=== PATIENT | male | born 1965 | race African-American/Black ===

== ENCOUNTER 2018-05-06 13:23 | Emergency (ER) | payer BC ==
[~2018-05-06] VITALS: Ht 180.3 cm; Wt 113.4 kg
[~2018-05-06 13:23] MED LIST: PRILOSEC
[2018-05-06] MEDS ORDERED: cloNIDine HCL 0.1 MG TAB PO ONE (13:30)
[2018-05-06] MEDS ORDERED: METHOCARBAMOL 500 MG TAB PO ONE (14:45)
[2018-05-06] MEDS ORDERED: ONDANSETRON ODT 4 MG TAB PO ONE (14:45)
[2018-05-06] MEDS ORDERED: HYDROcodone-ACET 10/325MG TAB PO ONE (14:45)
[2018-05-06 16:10] VITALS: BP 166/82
== END 2018-05-06 16:20 | disposition home or self-care (01) ==
LOC: ER 13:23
DX: N20.0 Calculus of kidney (principal); I10 Essential (primary) hypertension
CPT/HCPCS: 74176; 81002; 99284; Q0162; 93005

== ENCOUNTER 2018-05-08 07:06 | Emergency (ER) | payer BC ==
[~2018-05-08] VITALS: Ht 182.9 cm; Wt 113.4 kg
[2018-05-08] MEDS ORDERED: ONDANSETRON ODT 4 MG TAB PO ONE (07:30)
[2018-05-08] MEDS ORDERED: HYDROmorphone HCL 2 MG/ML VL IM ONE (07:30)
[2018-05-08 07:50] VITALS: BP 152/82
== END 2018-05-08 08:53 | disposition home or self-care (01) ==
LOC: EDBD 07:06 → ER 07:06
DX: G89.29 Other chronic pain (principal); M54.9 Dorsalgia, unspecified; I10 Essential (primary) hypertension
CPT/HCPCS: 72110; 96372; 99284; J1170; Q0162

== ENCOUNTER 2020-10-25 20:11 | Emergency (ER) | payer BC ==
[~2020-10-25] VITALS: Ht 180.3 cm; Wt 108.9 kg
[2020-10-25 20:38] VITALS: BP 180/90
== END 2020-10-26 00:30 | disposition home or self-care (01) ==
LOC: ER 20:16
DX: R04.0 Epistaxis (principal); I10 Essential (primary) hypertension

== ENCOUNTER 2024-10-23 13:40 | Inpatient (IN) | payer BC ==
[~2024-10-23] VITALS: Ht 180.3 cm; Wt 121.4 kg
[2024-10-23 13:55] VITALS: PULSE 36; RESP 17; O2SAT 98
[2024-10-23] MEDS: ASPirin 81 mg TAB PO ONE (14:07)
--- NOTE | 2024-10-23 14:20 | DVH ---
EXAM: XY CHEST PORTABLE Indication: bradycardic Technique: Single frontal view of the chest was obtained Comparison: None FINDINGS: Lines and Tubes: None Lungs: No focal consolidation. Pleura: No effusion. No pneumothorax. Cardiomediastinal contours: Cardiomegaly. Bones: No acute osseous abnormality. IMPRESSION: Cardiomegaly. No acute cardiopulmonary disease.
[2024-10-23 14:22] LABS: Basophils # (auto) 0.1 10 ^3/uL (0-0.2); Basophils % (auto) 1.3 % (0.0-2.0); Eosinophils # (auto) 0 10 ^3/uL (0-0.8); Eosinophils % (auto) 1.2 % (0.0-7.0); Hematocrit 48.4 % (41.0-53.0); Lymphocytes % (auto) 51.2 % (10.0-50.0); Mean Corpuscular Hemoglobin 30.8 pg (28.0-32.0); Mean Corpuscular Hgb Conc. 33.1 g/dL (32.0-36.0); Mean Corpuscular Volume 92.9 fL (80.0-100.0); Monocytes # (auto) 0.3 10 ^3/uL (0-1.3); Monocytes % (auto) 8.5 % (0.0-12.0); Neutrophils # (auto) 1.5 10 ^3/uL (1.6-8.6); Neutrophils % (auto) 37.8 % (37.0-80.0); Nucleated Red Blood Cells % 0.3 %; Platelet Count (auto) 189 10^3/uL (140-450); Red Blood Cells 5.21 10^6/uL (4.5-5.90); Red Cell Distribution Width 13.3 % (11.8-14.3); White Blood Cell 3.9 10^3/uL (4.4-10.8)
[2024-10-23] MEDS: GLUCAGON EMERG KIT 1mg/1ml IV ONE (14:22)
[2024-10-23] MEDS: STERILE WATER 10 ML ONE (14:23)
[2024-10-23 14:37] LABS: Albumin 4.6 g/dL (3.2-4.8); Alkaline Phosphatase 75 U/L (46-116); Anion Gap 8 (5-15); Aspartate Aminotransferase 30 U/L (13-40); BUN/Creatinine Ratio 9.1 (10.0-20.0); Blood Urea Nitrogen 11 mg/dL (9-23); Calcium 9.8 mg/dL (8.7-10.4); Carbon Dioxide 28 mmol/L (20-31); Chloride 105 mmol/L (98-107); Potassium 4.3 mmol/L (3.5-5.1); Sodium 141 mmol/L (136-145)
[2024-10-23 14:38] LABS: Total Protein 6.7 g/dL (5.7-8.2)
--- NOTE | 2024-10-23 14:57 | ED.PDOC ---
History of Present Illness HPI Comments 59 y/o M, with a Hx of HTN and obesity, presents with c/o bradycardia, today. Patient endorses on being sent from [facility] urgent care after being found with asymptomatic bradycardia when he was, initially, being evaluated for a productive cough that has been ongoing for, approximately, 1x week. He comments on only recent changes in his life being an increase in dosage of his metoprolol medication from a half of a 50mg table to a full 50mg tablet under advice of his senior developer. Patient denies having any chest pain, shortness of breath, fever, chills, or other associated symptoms or modifiers at this time. Chief Complaint: Flu like Time Seen by MD: 13:45 Primary Care Provider: NONE Reviewed Notes: Nurses Notes, Medications, Allergies Allergies: Coded Allergies: NO KNOWN ALLERGIES (Unverified , 04/02/10) Home Meds Reported Medications [Prilosec] No Conflict Check 04/02/10 Information Source: Patient Mode of Arrival: EMS Severity: Moderate Timing: Hours Duration: Since onset Prehospital treatment: None Past Medical History PAST MEDICAL HISTORY: HTN Past Medical History (Other): obesity Surgical History: Denies all surgeries Social History Smoker: Non-Smoker Alcohol: Denies ETOH Use Drugs: Denies Drug Use Lives In: Home Cardiovascular: reports: others (bradycardia ) All Other Systems: Reviewed and Negative (negative unless otherwise stated above or in HPI) Physical Exam General Appearance: No Apparent Distress, Obese HEENT: Normal ENT Inspection, Pharynx Normal, TMs Normal Neck: Full Range of Motion, Non-Tender, Normal, Normal Inspection Respiratory: Chest Non-Tender, Lungs Clear, No Accessory Muscle Use, No Respiratory Distress, Normal Breath Sounds Cardiovascular: Bradycardia, No Edema, No JVD, No Murmur, No Gallop, Normal Peripheral Pulses, Regular Rate/Rhythm Breast Exam: Deferred Gastrointestinal: No Organomegaly, Non Tender, No Pulsatile Mass, Normal Bowel Sounds, Soft Genitalia: Deferred Pelvic: Deferred Rectal: Deferred Extremities: No calf tenderness, Normal capillary refill, Normal inspection, Normal range of motion, Non-tender, No pedal edema Musculoskeletal : Apperance: Normal Neurologic: Alert, solid die cutter II-XII nml as Tested, No Motor Deficits, Normal Affect, Normal Mood, No Sensory Deficits Cerebellar Function: Normal Reflexes: Normal Skin: Dry, Normal Color, Warm Lymphatic: No Adenopathy Was a procedure done? Was a procedure done?: No EKG EKG : Pulse Rate (adult): 36 Fraser: RAD Cardiac Rhythm: Junctional Block: None Hypertrophy: None ST: Normal Comments Q-waves in septal lead, inverted T-waves in lateral leads Differential Dx Considerations may include: bradycardia, arrhythmia, viral syndrome, inappropriate medication dosage, HEART BLOCK X-Ray, Labs, Meds, VS Vital Signs Date Time Temp Pulse Resp B/P (MAP) Pulse Ox O2 Delivery O2 Flow Rate FiO2 10/23/24 14:57 36 10/23/24 13:55 98.1 36 17 174/89 (117) 98 98.1 10/23/24 13:55 36 17 98 Room Air* 0 21 10/23/24 13:51 38 10/23/24 13:51 98.1 36 18 138/96 (110) 98 10/23/24 13:41 36 Lab Test 10/23/24 14:12 Range/Units White Blood Count 3.9 L 4.4-10.8 10^3/uL Red Blood Count 5.21 4.5-5.90 10^6/uL Hemoglobin 16.0 13.5-17.5 g/dL Hematocrit 48.4 41.0-53.0 % Mean Corpuscular Volume 92.9 80.0-100.0 fL Mean Corpuscular Hemoglobin 30.8 28.0-32.0 pg Mean Corpuscular Hemoglobin Concent 33.1 32.0-36.0 g/dL Red Cell Distribution Width 13.3 11.8-14.3 % Platelet Count 189 140-450 10^3/uL Mean Platelet Volume 8.8 6.9-10.8 fL Neutrophils (%) (Auto) 37.8 37.0-80.0 % Lymphocytes (%) (Auto) 51.2 H 10.0-50.0 % Monocytes (%) (Auto) 8.5 0.0-12.0 % Eosinophils (%) (Auto) 1.2 0.0-7.0 % Basophils (%) (Auto) 1.3 0.0-2.0 % Neutrophils # (Auto) 1.5 L 1.6-8.6 10 ^3/uL Lymphocytes # (Auto) 2.0 0.4-5.4 10 ^3/uL Monocytes # (Auto) 0.3 0-1.3 10 ^3/uL Eosinophils # (Auto) 0 0-0.8 10 ^3/uL Basophils # (Auto) 0.1 0-0.2 10 ^3/uL Nucleated Red Blood Cells 0.3 % Sodium Level Pending Potassium Level Pending Chloride Level Pending Carbon Dioxide Level Pending Anion Gap Pending Blood Urea Nitrogen Pending Creatinine Pending Glomerular Filtration Rate Calc Pending BUN/Creatinine Ratio Pending Serum Glucose Pending Calcium Level Pending Total Bilirubin Pending Aspartate Amino Transferase (AST) Pending Alanine Aminotransferase (ALT) Pending Alkaline Phosphatase Pending Troponin I High Sensitivity Pending Total Protein Pending Albumin Pending Current Medications Medications (Trade) Dose Ordered Sig/Reagan Route Start Time Stop Time Status Last Admin Glucagon (Glucagen) 1 mg ONCE ONCE IV 10/23/24 14:00 10/23/24 14:01 DC 10/23/24 14:22 Aspirin 324 mg ONCE ONCE PO 10/23/24 14:00 10/23/24 14:01 DC 10/23/24 14:07 [place] [id number] Ph: [phone] DIAGNOSTIC IMAGING Diagnostic Imaging Report : [id number] Signed PATIENT: ZAID KNIGHT ACCT: [id number] UNIT: [id number] : 1965 LOC: ER ROOM / BED: / AGE / SEX: 59 / M ADM STATUS: REG ER SERVICE 1354 ORDERING PHYSICIAN: MARSHALL ORELLANA MD PROCEDURE(s): CXRP - CHEST PORTABLE REASON: bradycardic ORDER NUMBER(s): [id number], ACCESSION NUMBER(s): [id number] EXAM: XY CHEST PORTABLE Indication: bradycardic Technique: Single frontal view of the chest was obtained Comparison: None FINDINGS: Lines and Tubes: None Lungs: No focal consolidation. Pleura: No effusion. No pneumothorax. Cardiomediastinal contours: Cardiomegaly. Bones: No acute osseous abnormality. IMPRESSION: Cardiomegaly. No acute cardiopulmonary disease. ATED BY: ALEX LAGOS MD DICTATED DATE/TIME: 10/23/24 2434 SIGNED BY: ALEX LAGOS MD SIGNED DATE/TIME: 10/23/24 1419 CC: Time of 1ST Reevaluation: 14:15 Reevaluation 1ST: Unchanged Time of 2ND Reevaluation: 14:59 Reevaluation 2ND: Unchanged Patient Education/Counseling: Diagnosis, Treatment, Prognosis, Need For Follow Up Family Education/Counseling: Diagnosis, Treatment, Prognosis, Need For Follow Up, No Family Present Additional Information - I reviewed the following notes from patient's past medical encounters: ED ph ysician note on 10/25/20 - The following tests were ordered, and results were reviewed by me: EKG, troponin, CXR, CMP, CBC - Concur with result findings: CXR - I discussed treatments and results with medical personnel Pt remains asymptomatic, but he remains bradycardic, without response to glucagon. cxr shows CM, ekg shows nonspecific changes. however his troponin is significantly elevated. pt will need admission for further workup of the bradycardia, possible cardiomyopathy, with NSTEMI Departure 1 Departure Time of Disposition: 15:01 Impression: Primary Impression: Bradycardia Additional Impressions: Cardiomegaly Hypertension Qualified Codes: I10 - Essential (primary) hypertension NSTEMI (non-ST elevated myocardial infarction) Disposition: ADMITTED INPATIENT Admit to: Tele Condition: Serious Discharged With: Self, Relative Critical Care Note Critical Care Time?: Yes (55 min-critical care time only) Critical care comment: due to concerns for patient's condition deteriorating, the care required my highest level of attention and readiness to intervene. i assessed the patient's condition, ordered the proper tests and treatments, reassessed for response and reviewed the results. i communicated with medical personnel and formulated a plan of care. total critical care time does not include any procedures Stability Stability form required: No Heart Score Heart Score: Heart Score Response (Comments) Value History Moderate Suspicious 1 EKG Repolarization Disturb 1 Age 45-64 1 Risk Factors 1 or 2 risk factors 1 Troponin >3 x's Normal limit 2 Total 6 I personally scribed for MARSHALL ORELLANA MD ([email or web address]) on 10/23/24 at 14:57. Electronically submitted by Sekou Lopez ([email or web address]). MARSHALL ORELLANA MD Oct 23, 2024 14:57
[2024-10-23 15:00] LABS: Alanine Aminotransferase 42 U/L (7-40); Bilirubin, Total 1.7 mg/dL (0.2-1.0); Glucose 110 mg/dL (74-106)
[2024-10-23] MEDS: HEPARIN DRIP/D5W 100UNITS/ML 250 ML IV SCH ×2 (15:15→23:58)
[2024-10-23] MEDS: HEPARIN SODIUM (PORCINE) 5000 UNITS/ML 1ML VIAL IV ONE (15:15)
[2024-10-23 15:47] LABS: INR 1.03 (0.9-1.15); Partial Thromboplastin Time 26.8 SEC (24.5-34.5); Prothrombin Time 10.9 sec (9.3-11.8)
--- NOTE | 2024-10-23 18:41 | ECG ---
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
--- NOTE | 2024-10-23 18:41 | ECG ---
[facility] Test Date: 2024-10-23 Test Time: 13:41:40 Pat Name: ZAID KNIGHT Department: ED Room: [address] [place] [address] Gender: M Inclusion Specialist: DINORAH : 1965 Requested By: MARSHALL ORELLANA Order Number: [id number] Reading MD: Gee Wright Measurements Intervals [place] Rate: 36 P: 0 ME: 0 QRS: 100 QRSD: 86 T: 266 QT: 552 QTc: 428 Interpretive Statements Junctional rhythm Right axis deviation Anteroseptal infarct, old Abnormal T, consider ischemia, diffuse leads Electronically Signed On 10-26-2024 8:22:05 PST by Gee Wright Please click the below link to view image of tracing.
[2024-10-23 19:30] VITALS: PULSE 39; RESP 17; O2SAT 96
[2024-10-23] MEDS ORDERED: DOCUSATE SOD 100 MG CAP PO PRN (20:00)
--- NOTE | 2024-10-23 20:55 | DVHHP2 ---
History of Present Illness Reason for Visit: Bradycardia History of Present Illness The patient is a 59-year-old male morbidly obese with past medical history of hypertension presented to [facility] ED with complaint of bradycardia. Patient reports he went to urgent care stating chair, and was found to have symptomatic bradycardia, productive cough for the past 1 week, getting worse today that prompted this visit. Patient was seen and evaluated in the ED, laboratory data shows WBC 3.9, platelets 189, sodium 141, potassium 4.3, BUN 11, creatinine 1.21, GFR 68, glucose 110, total bilirubin 1.7, AST 30, ALT 47, troponin 711, blood pressure 141/75, heart rate 42, temperature 98.3 F, O2 saturation 98% on oxygen. Chest x-ray revealing cardiomegaly with no acute cardiopulmonary disease. Patient was started on heparin drip, please see medication orders section in the computer. On assessment, patient denied chest pain, no headache, no dizziness, no shortness of breaths, no nausea, no vomiting, no fever, no chills. Patient was admitted for further evaluation and medical management. Past Medical History HTN, Obesity Past Surgical History Denies all surgeries Family History Reviewed, noncontributory to the management of this case. Past Social History The patient lives at home, denies smoking, alcohol or illicit drugs abuse. Review of Systems Constitutional: No: Fever, Chills, Sweats, Weakness, Malaise, Other Eyes: No: Pain, Vision change, Conjunctivae inflammation, Eyelid inflammation, Other, Redness ENT: No: Ear pain, Ear discharge, Nose pain, Nose discharge, Nose congestion, Mouth pain, Mouth swelling, Throat pain, Throat swelling, Other Respiratory: Cough; No: Dry, Shortness of breath, SOB with excertion, Wheezing, Hemoptysis, Pleuritic Pain, Sputum, Wheezing, Other Cardiovascular: Other (Bradycardia); No: Chest Pain, Palpitations, Orthopnea, Paroxysmal Noc. Dyspnea, Edema, Lt Headedness Gastrointestinal: No: Nausea, Vomiting, Abdominal Pain, Diarrhea, Constipation, Melena, Hematochezia, Other Genitourinary: No Dysuria, No Frequency, No Incontinence, No Hematuria, No Retention, No Other Musculoskeletal: No: other, neck pain, shoulder pain, arm pain, back pain, hand pain, leg pain, foot pain Skin: No: Rash, Lesions, Jaundice, Bruising, Other Neurological: No: Weakness, Numbness, Incoordination, Change in speech, Confusion, Seizures, Other Allergies: Coded Allergies: NO KNOWN ALLERGIES (Unverified , 04/02/10) Medications Current Medications Medications Dose Ordered Sig/Reagan Route Start Time Stop Time Status Last Admin Dose Admin Heparin Sodium/ Dextrose 250 ml @ 10 mls/hr Q24H IV 10/23/24 15:15 10/23/24 15:15 10 MLS/HR Amlodipine Besylate 5 mg DAILY PO 10/24/24 10:00 Atorvastatin Calcium 10 mg HS PO 10/23/24 22:00 Famotidine 20 mg DAILY IV 10/24/24 10:00 Sodium Chloride 10 ml Q8HR IV 10/23/24 22:00 Acetaminophen/ Hydrocodone Bitart 1 tab Q4HP PRN PO 10/23/24 20:00 Ondansetron HCl 4 mg Q4HP PRN IV 10/23/24 20:00 Docusate Sodium 100 mg BIDPRN PRN PO 10/23/24 20:00 Acetaminophen 650 mg Q6HP PRN PO 10/23/24 20:00 Exam Vital Signs Vital Signs Date Time Temp Pulse Resp B/P (MAP) Pulse Ox O2 Delivery O2 Flow Rate FiO2 10/23/24 19:00 41 17 141/75 (97) 98 10/23/24 16:00 98.3 98.3 10/23/24 13:55 Room Air* 0 21 General Appearance: Alert, Oriented X3, Cooperative HEENT: Atraumatic, PERRLA, EOMI, Mucous membr. moist/pink Respiratory: Clear to auscultation, Normal air movement Cardiovascular: Normal S1, Normal S2, No murmurs, Other (Irregular rate) Abdominal: Normal bowel sounds, Soft, No tenderness, No hepatospenomegaly, No masses Extremities: No clubbing, No cyanosis, No edema, Normal pulses, No tenderness/swelling Skin: No rashes, No breakdown, No significant lesion Neuro: Normal gait, Normal speech, Strength at 5/5 X4 ext, Normal tone, Sensation intact, Cranial nerves 3-12 NL, Reflexes 2+ Psych/Mental Status: Mental status NL, Mood NL Labs/Xrays Labs Test 10/23/24 17:38 10/23/24 14:12 Range/Units Troponin I High Sensitivity 695 *H </=54 ng/L White Blood Count 3.9 L 4.4-10.8 10^3/uL Red Blood Count 5.21 4.5-5.90 10^6/uL Hemoglobin 16.0 13.5-17.5 g/dL Hematocrit 48.4 41.0-53.0 % Mean Corpuscular Volume 92.9 80.0-100.0 fL Mean Corpuscular Hemoglobin 30.8 28.0-32.0 pg Mean Corpuscular Hemoglobin Concent 33.1 32.0-36.0 g/dL Red Cell Distribution Width 13.3 11.8-14.3 % Platelet Count 189 140-450 10^3/uL Mean Platelet Volume 8.8 6.9-10.8 fL Neutrophils (%) (Auto) 37.8 37.0-80.0 % Lymphocytes (%) (Auto) 51.2 H 10.0-50.0 % Monocytes (%) (Auto) 8.5 0.0-12.0 % Eosinophils (%) (Auto) 1.2 0.0-7.0 % Basophils (%) (Auto) 1.3 0.0-2.0 % Neutrophils # (Auto) 1.5 L 1.6-8.6 10 ^3/uL Lymphocytes # (Auto) 2.0 0.4-5.4 10 ^3/uL Monocytes # (Auto) 0.3 0-1.3 10 ^3/uL Eosinophils # (Auto) 0 0-0.8 10 ^3/uL Basophils # (Auto) 0.1 0-0.2 10 ^3/uL Nucleated Red Blood Cells 0.3 % Prothrombin Time 10.9 9.3-11.8 sec Prothrombin Time INR 1.03 0.9-1.15 Activated Partial Thromboplast Time 26.8 24.5-34.5 SEC Sodium Level 141 136-145 mmol/L Potassium Level 4.3 3.5-5.1 mmol/L Chloride Level 105 98-107 mmol/L Carbon Dioxide Level 28 20-31 mmol/L Anion Gap 8 5-15 Blood Urea Nitrogen 11 9-23 mg/dL Creatinine 1.21 0.700-1.30 mg/dL Glomerular Filtration Rate Calc 68 >90 mL/min BUN/Creatinine Ratio 9.1 L 10.0-20.0 Serum Glucose 110 H 74-106 mg/dL Calcium Level 9.8 8.7-10.4 mg/dL Total Bilirubin 1.7 H 0.2-1.0 mg/dL Aspartate Amino Transferase (AST) 30 13-40 U/L Alanine Aminotransferase (ALT) 42 H 7-40 U/L Alkaline Phosphatase 75 46-116 U/L Total Protein 6.7 5.7-8.2 g/dL Albumin 4.6 3.2-4.8 g/dL PATIENT: ZAID KNIGHT ACCT: [id number] UNIT: [id number] : 1965 LOC: ER ROOM / BED: / AGE / SEX: 59 / M ADM STATUS: REG ER SERVICE 1354 ORDERING PHYSICIAN: MARSHALL ORELLANA MD PROCEDURE(s): CXRP - CHEST PORTABLE REASON: bradycardic ORDER NUMBER(s): [id number], ACCESSION NUMBER(s): [id number] EXAM: XY CHEST PORTABLE Indication: bradycardic Technique: Single frontal view of the chest was obtained Comparison: None FINDINGS: Lines and Tubes: None Lungs: No focal consolidation. Pleura: No effusion. No pneumothorax. Cardiomediastinal contours: Cardiomegaly. Bones: No acute osseous abnormality. IMPRESSION: Cardiomegaly. No acute cardiopulmonary disease. Assessment/Plan Assessment/Plan Bradycardia Cardiomegaly Hypertension Essential (primary) hypertension NSTEMI (non-ST elevated myocardial infarction) Plan 1. Admit to telemetry unit 2. Breathing treatment 3. Pain control management 4. Management of fluids and electrolytes 5. Consultation for Cardiology 6. Diagnostic tests chest x-ray 7. DVT prophylaxis-on heparin drip 8. Repeat labs CBC, CMP in a.m. 9. Continue with current medical management 10. Treatment plan discussed with patient and RN. Patient verbalized understanding. Plan discussed with: Patient, Other (RN) My Orders Orders - ILANA ARNOLD DNP Procedure Category Date Status Time Amlodipine Tablet PHA 10/24/24 In Process (Norvasc Tablet) 10:00 * Cardiology Consult CONS 10/23/24 Transmitted 19:48 Atorvastatin (Lipitor) PHA 10/23/24 In Process 22:00 Famotidine Injection PHA 10/24/24 In Process (Pepcid Injection) 10:00 Allergies YAHAIRA 10/23/24 In Process 19:48 Code Status CODE 10/23/24 Transmitted 19:48 Sodium Chloride Lock PHA 10/23/24 In Process (Saline Lock Ns) 22:00 Oxygen Per Hour RT 10/23/24 Transmitted 19:48 Hydrocodone-Acet PHA 10/23/24 In Process 5/325mg Tab (Bridgman 20:00 Ondansetron Hcl PHA 10/23/24 In Process (Zofran) 20:00 Docusate Sodium PHA 10/23/24 In Process Capsule (Colace 20:00 Complete Blood Count LAB 10/24/24 Verified 04:00 Comprehensive LAB 10/24/24 Verified Metabolic Panel 04:00 Cardiac DIET 10/24/24 Transmitted Diet-2gna,Lofat,Lochol Breakfast Condition: Serious YAHAIRA 10/23/24 In Process 19:48 Acetaminophen Tablet PHA 10/23/24 In Process (Tylenol Tablet) 20:00 Bedrest With Bathroom YAHAIRA 10/23/24 In Process Privileg 19:48 Sequential YAHAIRA 10/23/24 In Process Compression Device Admit ADMIT 10/23/24 Transmitted 20:53 Nitroglycerin PHA 10/23/24 Transmitted Sublingual (Ntrostat 21:00 Morphine Sulfate PHA 10/23/24 Transmitted Injection 21:00 Notify Of Changes YAHAIRA 10/23/24 Transmitted From Base 20:53 Manager Video For YAHAIRA 10/23/24 Transmitted 24 Hours 20:53 Emergency Dysrhythmia YAHAIRA 10/23/24 Transmitted Protocol 20:53 Rhythm Strips Once YAHAIRA 10/23/24 Transmitted Every Shift 20:53 Oxygen By Nasal RT 10/23/24 Transmitted Cannula 20:53 Problem List: (1) Bradycardia (2) Cardiomegaly (3) Hypertension (4) NSTEMI (non-ST elevated myocardial infarction) (5) Essential (primary) hypertension Date of Service: Oct 23, 2024 Billing Provider: ILANA ARNOLD DNP Common Visit Codes: 81976-[id number] INP/OBS CARE (HIGH) ILANA ARNOLD DNP Oct 23, 2024 20:55
[2024-10-23] MEDS ORDERED: MORPHINE SULFATE INJ 2 MG/ml SYRG IV PRN (21:00)
[2024-10-23] MEDS ORDERED: NITROGLYCERIN 0.4 MG SL TAB SL PRN (21:00)
[2024-10-23] MEDS: SODIUM CHLOR 0.9% PF (SALINE LOCK) 10ML VIAL/SYR IV SCH (22:25)
[2024-10-23 22:51] LABS: INR 1.06 (0.9-1.15); Partial Thromboplastin Time 41.3 SEC (24.5-34.5); Prothrombin Time 11.2 sec (9.3-11.8)
[2024-10-23] MEDS: ATORVASTATIN 20 MG TAB PO SCH (23:43)
[2024-10-24] VITALS (98 sets, daily range): BP systolic 114–198; BP diastolic 55–125; PULSE 35–80; RESP 0–29; TEMP 98–98.5; O2SAT 88–99
--- NOTE | 2024-10-24 07:33 | ECG ---
[facility] Test Date: 2024-10-24 Test Time: 00:53:33 Pat Name: ZAID KNIGHT Department: Room: [address] [place] [address] A Gender: M Cover Stripper: MELISSA MCCLURE : 1965 Requested By: ILANA ARNOLD Order Number: [id number] Reading MD: Gee Wright Measurements Intervals [place] Rate: 37 P: 0 IL: 0 QRS: 74 QRSD: 93 T: 209 QT: 572 QTc: 449 Interpretive Statements AV block, complete (third degree) Repol abnrm, global ischemia, diffuse leads Electronically Signed On 10-26-2024 8:15:43 PST by Gee Wright Please click the below link to view image of tracing.
[2024-10-24 08:00] LABS: Basophils # (auto) 0 10 ^3/uL (0-0.2); Eosinophils # (auto) 0 10 ^3/uL (0-0.8); Eosinophils % (auto) 1.1 % (0.0-7.0); Hematocrit 46.6 % (41.0-53.0); Hemoglobin 15.6 g/dL (13.5-17.5); Lymphocytes % (auto) 47.3 % (10.0-50.0); Mean Corpuscular Hemoglobin 30.9 pg (28.0-32.0); Mean Corpuscular Hgb Conc. 33.5 g/dL (32.0-36.0); Mean Corpuscular Volume 92.3 fL (80.0-100.0); Monocytes # (auto) 0.4 10 ^3/uL (0-1.3); Monocytes % (auto) 8.9 % (0.0-12.0); Neutrophils # (auto) 1.8 10 ^3/uL (1.6-8.6); Neutrophils % (auto) 41.7 % (37.0-80.0); Nucleated Red Blood Cells % 0.2 %; Platelet Count (auto) 200 10^3/uL (140-450); Red Blood Cells 5.05 10^6/uL (4.5-5.90); Red Cell Distribution Width 13.3 % (11.8-14.3); White Blood Cell 4.2 10^3/uL (4.4-10.8)
[2024-10-24 08:04] LABS: Alanine Aminotransferase 34 U/L (7-40); Alkaline Phosphatase 69 U/L (46-116); Anion Gap 10 (5-15); Aspartate Aminotransferase 26 U/L (13-40); BUN/Creatinine Ratio 7.9 (10.0-20.0); Calcium 9.3 mg/dL (8.7-10.4); Carbon Dioxide 24 mmol/L (20-31); Chloride 106 mmol/L (98-107); Potassium 3.8 mmol/L (3.5-5.1); Sodium 140 mmol/L (136-145)
[2024-10-24 08:05] LABS: Albumin 4.2 g/dL (3.2-4.8)
[2024-10-24 08:10] LABS: Total Protein 6.5 g/dL (5.7-8.2)
[2024-10-24 08:11] LABS: INR 1.07 (0.9-1.15); Partial Thromboplastin Time 48.8 SEC (24.5-34.5); Prothrombin Time 11.3 sec (9.3-11.8)
[2024-10-24 08:16] LABS: Bilirubin, Total 2.3 mg/dL (0.2-1.0); Blood Urea Nitrogen 9 mg/dL (9-23); Glucose 115 mg/dL (74-106)
[2024-10-24] MEDS ORDERED: HEPARIN DRIP/D5W 100UNITS/ML 250 ML IV SCH (08:30)
[2024-10-24] MEDS: DOPamine 1600MCG/ML D5W 250 ML IV SCH ×2 (08:37→14:30)
[2024-10-24] MEDS: amLODIPine BESYLATE 5 MG TAB PO SCH (08:38)
[2024-10-24] MEDS: FAMOTIDINE (10MG/ML) 2ML VL IV SCH (08:38)
[2024-10-24] MEDS ORDERED: hydrALAZINE HCL 20 MG/ML VL IV PRN (08:45)
--- NOTE | 2024-10-24 09:05 | DVHINCON2 ---
DAVON MARES [facility] 10/24/24 0904: Date Seen: Oct 24, 2024 Referring Physician Chriss GARNER Reason for Consultation NSTEMI History of Present Illness This 59-year-old male presented in the ED with a chief complaint of low heart rate. The patient reports has been sick with cough and congestion for the past week leading him to visit an urgent care. While at the urgent care the patient heart rate noted bradycardia for which he was advised to go to ED. In the emergency department the patient is found to be in third-degree heart block. NSTEMI peak at 700s. Upon assessment, the patient is asymptomatic, he denies dizziness, syncope, chest pain, shortness of breath, dyspnea or other acute symptoms. The patient is currently on heparin drip and about to start on dopamine drip. Denies familiar history of CAD. Past medical history of hypertension, ex-smoker, and obesity. Past Medical History Hypertension Ex-smoker Obesity Past Surgical History Denies Family History: Cerebrovascular accident (CVA) G8 MOTHER, Onset:Unknown Prostate carcinoma G8 FATHER, Onset:Unknown Family History Reviewed, non-contributory to the management of this case. Social History The patient lives at home, denies smoking, alcohol or illicit drugs abuse. Allergies: Coded Allergies: NO KNOWN ALLERGIES (Unverified , 04/02/10) Home Meds Reported Medications [Prilosec] No Conflict Check 04/02/10 Current Medications Current Medications Medications (Trade) Dose Ordered Sig/Reagan Route PRN Reason Start Time Stop Time Status Last Admin Heparin Sodium/ Dextrose 250 ml @ 10 mls/hr Q24H IV 10/23/24 15:15 10/23/24 23:51 DC 10/23/24 15:15 Amlodipine Besylate (Norvasc Tablet) 5 mg DAILY PO 10/24/24 10:00 Atorvastatin Calcium (Lipitor) 10 mg HS PO 10/23/24 22:00 10/23/24 23:43 Famotidine (Pepcid Injection) 20 mg DAILY IV 10/24/24 10:00 Sodium Chloride (Saline Lock Ns) 10 ml Q8HR IV 10/23/24 22:00 10/24/24 05:39 Acetaminophen/ Hydrocodone Bitart ([place] 5/325MG Tab) 1 tab Q4HP PRN PO MODERATE PAIN (4-6 PAIN SCALE) 10/23/24 20:00 Ondansetron HCl (Zofran) 4 mg Q4HP PRN IV NAUSEA / VOMITING 10/23/24 20:00 Docusate Sodium (Colace Capsule) 100 mg BIDPRN PRN PO FOR CONSTIPATION 10/23/24 20:00 Acetaminophen (Tylenol Tablet) 650 mg Q6HP PRN PO PAIN SCALE 1-3 OR TEMP>100.4 10/23/24 20:00 Nitroglycerin (Ntrostat Sublingual) 0.4 mg Q5MINP PRN SL FOR CHEST PAIN 10/23/24 21:00 Morphine Sulfate 2 mg Q30M PRN IV FOR CHEST PAIN 10/23/24 21:00 Heparin Sodium/ Dextrose 250 ml @ 12 mls/hr [id number] IV 10/23/24 23:45 10/24/24 08:26 DC 10/23/24 23:58 Dopamine HCl/ Dextrose 250 ml @ 22.763 mls/ hr [id number] IV 10/24/24 08:00 Heparin Sodium/ Dextrose 250 ml @ 14 mls/hr [id number] IV 10/24/24 08:30 Review of Systems Constitutional: No symptom reported Ears, Nose, & Throat: No symptom reported Eyes: No symptom reported Neurological: No symptoms reported Pulmonary/Respiratory: cough, congestion Cardiovascular: Low heart rate Gastrointestinal: No symptom reported Genitourinary: No symptom reported Musculoskeletal: No symptom reported Skin: No symptom reported Psychiatric: No symptom reported Endocrine: No symptom reported Hemotologic/Lymphatic: No symptom reported Vital Signs Vital Signs Date Time Temp Pulse Resp B/P (MAP) Pulse Ox O2 Delivery O2 Flow Rate FiO2 10/24/24 07:45 98.0 60 21 154/72 (99) 92 98.0 10/24/24 06:00 Room Air* 0 21 Physical Exam INITIAL VITAL SIGNS: Reviewed by me GENERAL: Alert and interactive. No acute distress. HEAD: Head is normocephalic and atraumatic. EYES: EOMI, PERRL. No scleral icterus. No conjunctival injection. ENT: Moist mucous membranes. NECK: Supple, No masses, Full range of motion. RESPIRATORY: No tachypnea. Clear breath sounds bilaterally. No wheezing, rales, rhonchi. CV: Third-degree heart block GI/: Active bowel sounds, soft, nondistended, nontender. No guarding. No rebound. No masses. No CVA tenderness. INTEGUMENTARY: Warm and dry. No obvious rashes. NEUROLOGIC: Alert and oriented. Face is symmetric. Speech is normal. Moves all extremities equally. Labs/Diagnostic Data Labs Test 10/24/24 07:08 10/24/24 07:04 Range/Units White Blood Count 4.2 L 4.4-10.8 10^3/uL Red Blood Count 5.05 4.5-5.90 10^6/uL Hemoglobin 15.6 13.5-17.5 g/dL Hematocrit 46.6 41.0-53.0 % Mean Corpuscular Volume 92.3 80.0-100.0 fL Mean Corpuscular Hemoglobin 30.9 28.0-32.0 pg Mean Corpuscular Hemoglobin Concent 33.5 32.0-36.0 g/dL Red Cell Distribution Width 13.3 11.8-14.3 % Platelet Count 200 140-450 10^3/uL Mean Platelet Volume 9.1 6.9-10.8 fL Neutrophils (%) (Auto) 41.7 37.0-80.0 % Lymphocytes (%) (Auto) 47.3 10.0-50.0 % Monocytes (%) (Auto) 8.9 0.0-12.0 % Eosinophils (%) (Auto) 1.1 0.0-7.0 % Basophils (%) (Auto) 1.0 0.0-2.0 % Neutrophils # (Auto) 1.8 1.6-8.6 10 ^3/uL Lymphocytes # (Auto) 2.0 0.4-5.4 10 ^3/uL Monocytes # (Auto) 0.4 0-1.3 10 ^3/uL Eosinophils # (Auto) 0 0-0.8 10 ^3/uL Basophils # (Auto) 0 0-0.2 10 ^3/uL Nucleated Red Blood Cells 0.2 % Prothrombin Time 11.3 9.3-11.8 sec Prothrombin Time INR 1.07 0.9-1.15 Activated Partial Thromboplast Time 48.8 H 24.5-34.5 SEC Sodium Level 140 136-145 mmol/L Potassium Level 3.8 3.5-5.1 mmol/L Chloride Level 106 98-107 mmol/L Carbon Dioxide Level 24 20-31 mmol/L Anion Gap 10 5-15 Blood Urea Nitrogen 9 9-23 mg/dL Creatinine 1.14 0.700-1.30 mg/dL Glomerular Filtration Rate Calc 73 >90 mL/min BUN/Creatinine Ratio 7.9 L 10.0-20.0 Serum Glucose 115 H 74-106 mg/dL Calcium Level 9.3 8.7-10.4 mg/dL Total Bilirubin 2.3 H 0.2-1.0 mg/dL Aspartate Amino Transferase (AST) 26 13-40 U/L Alanine Aminotransferase (ALT) 34 7-40 U/L Alkaline Phosphatase 69 46-116 U/L Total Protein 6.5 5.7-8.2 g/dL Albumin 4.2 3.2-4.8 g/dL PROCEDURE(s): CXRP - CHEST PORTABLE REASON: bradycardic ORDER NUMBER(s): [id number], ACCESSION NUMBER(s): [id number] EXAM: XY CHEST PORTABLE Indication: bradycardic Technique: Single frontal view of the chest was obtained Comparison: None FINDINGS: Lines and Tubes: None Lungs: No focal consolidation. Pleura: No effusion. No pneumothorax. Cardiomediastinal contours: Cardiomegaly. Bones: No acute osseous abnormality. IMPRESSION: Cardiomegaly. No acute cardiopulmonary disease. Assessment NSTEMI possible type1 Acute coronary syndrome Third-degree heart block Cardiomegaly Hypertension Obesity Ex-smoker Plan/Recommendation Discussed case with Dr. Hinson and we recommend to following: Continue with ACS protocol-heparin drip Dopamine drip- TVP if heart rate does not improve Avoid AV blocking agent Echocardiogram Continue amlodipine, hydralazine as needed Serial troponin levels and electrocardiograms DC heparin drip We will schedule for a right and left cardiac catheterization and coronary angiogram at first available. Discussed planned procedure for left heart catheterization with patient, verbalized understanding, and agreed with the procedure. Thank you for allowing us to participate in this patient's care. Please call if you have any questions or concerns. This medical document was created using an electronic medical record system with [employer] system. Although this document has been carefully reviewed, there might still be some phonetic and typographical errors. These areas are purely typographical due to imperfections of the software programs, and do not reflect any compromise in the patient's medical care. Plan discussed with: Patient, Other Plan discussed with: Patient, Spouse NYHA Physical activity limitations: NA Date of Service: Oct 24, 2024 Billing Provider: MYA DAVENPORT MD Cardiology Common Codes: NOT BILLABLE Cardiology Consultation Codes: [id number] CONSULT <80MIN MYA DAVENPORT MD 10/24/24 1206: Family History: Cerebrovascular accident (CVA) G8 MOTHER, Onset:Unknown Prostate carcinoma G8 FATHER, Onset:Unknown Allergies: Coded Allergies: NO KNOWN ALLERGIES (Unverified , 04/02/10) Home Meds Reported Medications [Prilosec] No Conflict Check 04/02/10 Plan/Recommendation agree with WRIST HEMMER , pt seen and examined personally pt in [facility] and rates in 30s up to 40s on dopamine, mild nausea, pt t akes 100 mg of metop echo shows preserved lvef recommend LHC and TVP placement, pt agrees, family at bedside RN with me 60 mins critical care time spent Plan discussed with: Patient Date of Service: Oct 24, 2024 Billing Provider: MYA DAVENPORT MD Cardiology Common Codes: NOT BILLABLE DAVON MARES [employer] Oct 24, 2024 09:04 MYA DAVENPORT MD Oct 24, 2024 12:06
[2024-10-24 09:41] LABS: Triglycerides 106 mg/dL (< 150)
[2024-10-24 09:43] LABS: Cholesterol 193 mg/dL (< 200)
[2024-10-24 09:45] LABS: HDL Cholesterol 41 mg/dL (40-59)
[2024-10-24 09:48] LABS: LDL Cholesterol 141 mg/dL (< 100)
[2024-10-24] MEDS: SODIUM CHLORIDE 0.9% 1,000 ML IV SCH (09:53)
[2024-10-24] MEDS: ONDANSETRON HCL 4 MG/2 ML VIAL IV PRN (10:00)
--- NOTE | 2024-10-24 11:12 | ECG ---
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
--- NOTE | 2024-10-24 11:13 | ECG ---
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
--- NOTE | 2024-10-24 11:43 | DVHINCON2 ---
Date of service: Oct 24, [address] shearer Reason for Consultation hypoxemia History of Present Illness 59 yo AAM, presented with an episode of bradycardia. Pt has a h/o high BP, usually on metoprolol at home. Non smoker. pt started on dopamine drip, admitted to ICU. noted to desaturate on room air, placed on suppl 02. denies cough/mucus/c/pain. CXR unremarkable, trops marginal Family History: Cerebrovascular accident (CVA) G8 MOTHER, Onset:Unknown Prostate carcinoma G8 FATHER, Onset:Unknown Allergies: Coded Allergies: NO KNOWN ALLERGIES (Unverified , 04/02/10) Home Meds Reported Medications [Prilosec] No Conflict Check 04/02/10 Current Medications Current Medications Medications (Trade) Dose Ordered Sig/Reagan Route PRN Reason Start Time Stop Time Status Last Admin Heparin Sodium/ Dextrose 250 ml @ 10 mls/hr Q24H IV 10/23/24 15:15 10/23/24 23:51 DC 10/23/24 15:15 Amlodipine Besylate (Norvasc Tablet) 5 mg DAILY PO 10/24/24 10:00 10/24/24 08:38 Atorvastatin Calcium (Lipitor) 10 mg HS PO 10/23/24 22:00 10/24/24 08:59 DC 10/23/24 23:43 Famotidine (Pepcid Injection) 20 mg DAILY IV 10/24/24 10:00 10/24/24 08:38 Sodium Chloride (Saline Lock Ns) 10 ml Q8HR IV 10/23/24 22:00 10/24/24 11:17 Acetaminophen/ Hydrocodone Bitart ([place] 5/325MG Tab) 1 tab Q4HP PRN PO MODERATE PAIN (4-6 PAIN SCALE) 10/23/24 20:00 Ondansetron HCl (Zofran) 4 mg Q4HP PRN IV NAUSEA / VOMITING 10/23/24 20:00 10/24/24 10:00 Docusate Sodium (Colace Capsule) 100 mg BIDPRN PRN PO FOR CONSTIPATION 10/23/24 20:00 Acetaminophen (Tylenol Tablet) 650 mg Q6HP PRN PO PAIN SCALE 1-3 OR TEMP>100.4 10/23/24 20:00 Nitroglycerin (Ntrostat Sublingual) 0.4 mg Q5MINP PRN SL FOR CHEST PAIN 2/14/25 21:00 Morphine Sulfate 2 mg Q30M PRN IV FOR CHEST PAIN 10/23/24 21:00 Heparin Sodium/ Dextrose 250 ml @ 12 mls/hr [id number] IV 10/23/24 23:45 10/24/24 08:26 DC 10/23/24 23:58 Dopamine HCl/ Dextrose 250 ml @ 22.763 mls/ hr [id number] IV 10/24/24 08:00 10/24/24 08:37 Heparin Sodium/ Dextrose 250 ml @ 14 mls/hr [id number] IV 10/24/24 08:30 10/24/24 08:59 DC Hydralazine HCl (Apresoline Injection) 10 mg Q6HP PRN IV SBP>150 10/24/24 09:00 Atorvastatin Calcium (Lipitor) 80 mg HS PO 10/24/24 22:00 Sodium Chloride 1,000 ml @ 100 mls/hr Q10H IV 10/24/24 08:45 10/24/24 09:53 Hydralazine HCl (Apresoline Injection) 10 mg Q6HP PRN IV SBP>150 10/24/24 08:45 10/24/24 09:11 DC Vital Signs Vital Signs Date Time Temp Pulse Resp B/P (MAP) Pulse Ox O2 Delivery O2 Flow Rate FiO2 10/24/24 11:00 47 24 157/60 (92) 98 10/24/24 10:12 Room Air* 0 21 10/24/24 07:45 98.0 98.0 Labs/Diagnostic Data Labs Test 10/24/24 07:08 10/24/24 07:04 Range/Units Hemoglobin A1c 5.7 <5.7 % A1C Magnesium Level 2.1 1.6-2.6 mg/dL Troponin I High Sensitivity 565 *H </=54 ng/L B-Type Natriuretic Peptide 160.27 0-100 pg/mL Triglycerides Level 106 < 150 mg/dL Cholesterol Level 193 < 200 mg/dL LDL Cholesterol 141 H < 100 mg/dL HDL Cholesterol 41 40-59 mg/dL Thyroid Stimulating Hormone (TSH) 0.53 L 0.55-4.78 uIU/mL White Blood Count 4.2 L 4.4-10.8 10^3/uL Red Blood Count 5.05 4.5-5.90 10^6/uL Hemoglobin 15.6 13.5-17.5 g/dL Hematocrit 46.6 41.0-53.0 % Mean Corpuscular Volume 92.3 80.0-100.0 fL Mean Corpuscular Hemoglobin 30.9 28.0-32.0 pg Mean Corpuscular Hemoglobin Concent 33.5 32.0-36.0 g/dL Red Cell Distribution Width 13.3 11.8-14.3 % Platelet Count 200 140-450 10^3/uL Mean Platelet Volume 9.1 6.9-10.8 fL Neutrophils (%) (Auto) 41.7 37.0-80.0 % Lymphocytes (%) (Auto) 47.3 10.0-50.0 % Monocytes (%) (Auto) 8.9 0.0-12.0 % Eosinophils (%) (Auto) 1.1 0.0-7.0 % Basophils (%) (Auto) 1.0 0.0-2.0 % Neutrophils # (Auto) 1.8 1.6-8.6 10 ^3/uL Lymphocytes # (Auto) 2.0 0.4-5.4 10 ^3/uL Monocytes # (Auto) 0.4 0-1.3 10 ^3/uL Eosinophils # (Auto) 0 0-0.8 10 ^3/uL Basophils # (Auto) 0 0-0.2 10 ^3/uL Nucleated Red Blood Cells 0.2 % Prothrombin Time 11.3 9.3-11.8 sec Prothrombin Time INR 1.07 0.9-1.15 Activated Partial Thromboplast Time 48.8 H 24.5-34.5 SEC Sodium Level 140 136-145 mmol/L Potassium Level 3.8 3.5-5.1 mmol/L Chloride Level 106 98-107 mmol/L Carbon Dioxide Level 24 20-31 mmol/L Anion Gap 10 5-15 Blood Urea Nitrogen 9 9-23 mg/dL Creatinine 1.14 0.700-1.30 mg/dL Glomerular Filtration Rate Calc 73 >90 mL/min BUN/Creatinine Ratio 7.9 L 10.0-20.0 Serum Glucose 115 H 74-106 mg/dL Calcium Level 9.3 8.7-10.4 mg/dL Total Bilirubin 2.3 H 0.2-1.0 mg/dL Aspartate Amino Transferase (AST) 26 13-40 U/L Alanine Aminotransferase (ALT) 34 7-40 U/L Alkaline Phosphatase 69 46-116 U/L Total Protein 6.5 5.7-8.2 g/dL Albumin 4.2 3.2-4.8 g/dL Assessment acute hypoxemia atelectases bradycardia elevated troponins plan suppl 02 incent spirometry obt us venous doppler (pt reports intermittent swelling) scheduled for angiogram +/-PM today if negative consider CTA will follow up Plan discussed with: Patient FAITH VITAL MD Oct 24, 2024 11:43
--- NOTE | 2024-10-24 11:52 | DVHSR ---
APPROVED REPORT EXAM: Two-dimensional and M-mode echocardiogram with Doppler, color Doppler and Bubble Study. Blood Pressure: 176/70 mmHg INDICATION NSTEMI RISK FACTORS Obesity: Height: 5'11, Weight: 267 DIMENSIONS LVDd6.1 (3.8-5.7cm)LA (2D)4.6 (1.9-4.0cm)Aortic Root3.7 (2.0-3.7cm) LVDs3.7 (2.5-4.0cm)LA (MM) (1.9-4.0cm)Aortic Cusp Exc1.4 (1.5-2.0cm) EF (%) 65.0 (55-70%)Rt. Atrium4.3 (1.9-4.0cm)Asc. Aorta cm IVSd1.2 (0.7-1.1cm)RV (D)4.3 (1.8-2.4cm) PWd1.2 (0.7-1.1cm) Mitral Valve MitralMitral Stenosis E wave1.03m/sMV Mean GR.2mmHg A wave0.46m/sMV Peak GR.155mmHg E/A ratio2.22D MVAcm2 DECEL [id number] 1/2 Timems Aortic Valve Aortic ValveAortic Stenosis V1m/Sera Mean GR.31mmHg V23.56m/Sera Peak GR.51mmHg LVOT Diameter2.2 (1.8-2.4cm)Doppler AVAcm2 Pulmonic Valve V21.61m/s Tricuspid Valve TR Velocity2.65m/s [id number] Conclusion lvef 60% by visual estimate sigmoid septum LVH noted intracavitary gradient of 30 mmhg, no obvious MAYDA but HOCM is on ddx bubble study negative for R to L shunting left atrium enlarged
[2024-10-24] MEDS: IODIXANOL 320MG/ML 100ML BTL IV ONE (11:56)
[2024-10-24] MEDS: LIDOCAINE 2%HCL (LOCAL ANESTH.) INJ 20ML MDV ONE (11:56)
[2024-10-24] MEDS: HEPARIN IN NS 1000Units/500mL 1,500 ML ONE (11:57)
[2024-10-24] MEDS: VERAPAMIL 2.5MG/ML INJ 2ML VIAL IV ONE (12:07)
[2024-10-24] MEDS: fentaNYL CITRATE 100 MCG/2 ML VL ONE (12:07)
[2024-10-24] MEDS: ANGIOMAX 250 MG VIAL IV ONE (12:07)
[2024-10-24] MEDS: SODIUM CHL 0.9% 0 ML ONE (12:08)
[2024-10-24] MEDS: MIDAZOLAM HCL 2MG/2ML 2ml VIAL (1mg/ml) ONE (12:08)
--- NOTE | 2024-10-24 13:37 | DVHOP ---
DATE OF SURGERY: 10/24/2024 PREOPERATIVE DIAGNOSES: Complete heart block, [id number] myocardial infarction. POSTOPERATIVE DIAGNOSES: Complete heart block, [id number] myocardial infarction. PROCEDURES PERFORMED: Selective coronary angiogram, conscious sedation administration and supervision less than 15 minutes as well as 15-30 minutes, fluoroscopy use interpretation, ultrasound-guided vascular access, placement of temporary transvenous pacemaker in the right ventricle. PROCEDURE IN DETAIL: The patient signed informed consent, understanding risks, benefits and alternatives of the procedure, he wished to proceed. The patient was brought to the laborer electroplating in n.p.o. state. He was prepped in sterile fashion. Sedation was used per cardiac cath protocol, administered 1 mL of 2% lidocaine to the right wrist. With an antegrade flow wall puncture, I cannulated the right radial artery and placed 6-Croatian Glidesheath Slender. Next, an intra-arterial spasmolytic was administered. Next, an angiogram was done using a Hartland catheter with cannulation to the left main and RCA. FINDINGS: * Left main: Large vessel coming off the left sinus of Valsalva. It is extremely long. It appears to give off a large LAD and a large diagonal artery that is free of any severe disease. There appears to be a ramus branch coming off as well that is also free of any significant disease and tortuous. * RCA: RCA is a large vessel. It is dominant coming off the right sinus of Valsalva. It is patent. The PDA and PL branch have moderate luminal irregularities. 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 There appears to be some thinning of the vessel in the ostium and proximal portion of the circumflex, but there is no significant coronary artery disease. There is a small OM branch coming off initially and a moderately large OM2 and OM3 that goes off laterally to the left ventricle that is free of any severe disease. I cannot rule out any type of compression to the vessel. At this point, all guides and wires were removed from the radial access and a TR band was used to obtain hemostasis. I then gave 8 mL of 1% lidocaine to the right groin with an antegrade puncture using ultrasound-guided access with a Cook needle. I was able to place a 6-Croatian sheath into the right common femoral vein, confirming my location. At this point, I took a 5-Croatian transvenous catheter and I placed it into the RV septum. At this point, I started to pace at 80 beats per minute at 10 millivolts, downgrading down to about 4 millivolts and then about 2 millivolts before losing capture. At this point, we sutured our transvenous pacer in place at about 65 cm and paced the patient at 80 beats per minute. There were no immediate complications. 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 * Patent coronary arteries without evidence of severe coronary artery disease. * Placement of a temporary transvenous pacemaker. PLAN: * Hold beta-daphne at this point. * Consider placement of a permanent pacemaker in the future. * Consider coronary CTA in the future given the anomalous coronary anatomy. Dat Reyes MD CM/CHARLES TID: [id number] RECEIPT: [id number]
[2024-10-24 14:01] LABS: Urine Bacteria None Seen /hpf (None Seen)
[2024-10-24 14:12] LABS: Urine Blood 2+ /uL (Negative); Urine Clarity Clear (Clear); Urine Color Light-Yellow (Yellow); Urine Protein, UAD Negative (Negative); Urine Specific Gravity 1.026 (1.001-1.035); Urine Squamous Epithelial Cell None Seen /hpf (<5); Urine Urobilinogen Normal (Negative); Urine WBC 4 /HPF (0-3); Urine pH 6.5 (5.0-9.0)
--- NOTE | 2024-10-24 14:27 | DVH ---
CHEST RADIOGRAPH Indication: s/p tranvenous pacer Technique: Single frontal view of the chest was obtained COMPARISON: XY CHEST PORTABLE on DOS: 10/23/24 FINDINGS: Lines and Tubes: Inferior approach transvenous pacer. Lungs: Clear Pleura: No effusion. No pneumothorax. Cardiomediastinal contours: Unremarkable Bones: Unremarkable IMPRESSION: No acute disease.
--- NOTE | 2024-10-24 14:27 | DVH ---
Bilateral lower extremity venous duplex Clinical History: rule out dvt Comparison: None Technique: Duplex Doppler evaluation of the deep venous systems of both lower extremities from the common femora l veins to the popliteal veins including color Doppler and spectral/pulsed waveform analysis was perf ormed. Findings: RIGHT SIDE: Common femoral vein, GSV junction and proximal femoral vein are not visualized secondary to catheter in-situ. The mid and distal femoral vein demonstrates appropriate compressibility and waveform variability. The deep femoral vein demonstrates appropriate compressibility and waveform variability. The popliteal vein demonstrates appropriate compressibility and waveform variability. There is normal compressibility at the tibioperoneal trunk. LEFT SIDE: The common femoral vein demonstrates appropriate compressibility and waveform variability. There is compressibility/patency of the great saphenous vein at the proximal thigh. The femoral vein demonstrates appropriate compressibility and waveform variability. The deep femoral vein demonstrates appropriate compressibility and waveform variability. The popliteal vein demonstrates appropriate compressibility and waveform variability. There is normal compressibility at the tibioperoneal trunk. Impression: No left DVT. Nonvisualization of the right common femoral vein and proximal femoral vein secondary to catheter in- situ. Of the visualized right lower extremity, no DVT.
[2024-10-24] MEDS: ALPRAZolam 0.5 MG TAB PO ONE (14:30)
--- NOTE | 2024-10-24 17:52 | DVHPN2 ---
Reviewed: Care Plan, H&P, Labs, Medications, Previous Orders, Radiology Changes from previous H/P or p: No Changes General: Per HPI Eyes: No Pain, No Vision change, No Conjunctivae inflammation, No Eyelid inflammation, No Other, No Redness ENT: No Ear pain, No Ear discharge, No Nose pain, No Nose discharge, No Nose congestion, No Mouth pain, No Mouth swelling, No Throat pain, No Throat swelling, No Other Cardiovascular: No Chest Pain, No Palpitations, No Orthopnea, No Paroxysmal Noc. Dyspnea, No Edema, No Lt Headedness; Other (Bradycardia) Respiratory: Cough; No Dry, No Shortness of breath, No SOB with excertion, No Wheezing, No Hemoptysis, No Pleuritic Pain, No Sputum, No Other Gastrointestinal: No Nausea, No Vomiting, No Abdominal Pain, No Diarrhea, No Constipation, No Melena, No Hematochezia, No Other Genitourinary: No Dysuria, No Frequency, No Incontinence, No Hematuria, No Retention, No Other Musculoskeletal: No other, No neck pain, No shoulder pain, No arm pain, No back pain, No hand pain, No leg pain, No foot pain Skin: No Rash, No Lesions, No Jaundice, No Bruising, No Other Objective Vitals Vital Signs Date Time Temp Pulse Resp B/P (MAP) Pulse Ox O2 Delivery O2 Flow Rate FiO2 10/24/24 16:44 80 16 120/88 (99) 94 10/24/24 15:43 98.0 98.0 10/24/24 15:43 Nasal Cannula* 2 28 Intake/Output Intake and Output 10/24/24 07:00 Intake Total 272 ml Output Total 800 ml Balance -528 ml Intake Oral 120 ml IV Total 152 ml Output Urine Total 800 ml Medications Current Medications Medications Dose Ordered Sig/Reagan Route Start Time Stop Time Status Last Admin Dose Admin Amlodipine Besylate 5 mg DAILY PO 10/24/24 10:00 10/24/24 08:38 5 MG Famotidine 20 mg DAILY IV 10/24/24 10:00 10/24/24 08:38 20 MG Sodium Chloride 10 ml Q8HR IV 10/23/24 22:00 10/24/24 11:17 10 ML Acetaminophen/ Hydrocodone Bitart 1 tab Q4HP PRN PO 10/23/24 20:00 Ondansetron HCl 4 mg Q4HP PRN IV 10/23/24 20:00 10/24/24 10:00 4 MG Docusate Sodium 100 mg BIDPRN PRN PO 10/23/24 20:00 Acetaminophen 650 mg Q6HP PRN PO 10/23/24 20:00 Nitroglycerin 0.4 mg Q5MINP PRN SL 10/23/24 21:00 Morphine Sulfate 2 mg Q30M PRN IV 10/23/24 21:00 Hydralazine HCl 10 mg Q6HP PRN IV 10/24/24 09:00 Atorvastatin Calcium 80 mg HS PO 10/24/24 22:00 Sodium Chloride 1,000 ml @ 100 mls/hr Q10H IV 10/24/24 08:45 10/24/24 09:53 100 MLS/HR Dopamine HCl/ Dextrose 250 ml @ 11.381 mls/ hr [id number] IV 10/24/24 14:15 10/24/24 14:30 11.381 MLS/HR Zolpidem Tartrate 5 mg HSPRN PRN PO 10/24/24 14:45 Laboratory Results Laboratory Tests 10/24/24 07:04 Chemistry Test 10/24/24 07:04 10/24/24 07:08 Albumin 4.2 g/dL (3.2-4.8) Calcium Level 9.3 mg/dL (8.7-10.4) Total Protein 6.5 g/dL (5.7-8.2) Magnesium Level 2.1 mg/dL (1.6-2.6) Coagulation Test 10/23/24 21:56 10/24/24 07:04 Prothrombin Time 11.2 sec (9.3-11.8) 11.3 sec (9.3-11.8) Prothrombin Time INR 1.06 (0.9-1.15) 1.07 (0.9-1.15) Activated Partial Thromboplast Time 41.3 SEC (24.5-34.5) H 48.8 SEC (24.5-34.5) H Lipid panel Test 10/24/24 07:08 Cholesterol Level 193 mg/dL (< 200) HDL Cholesterol 41 mg/dL (40-59) Triglycerides Level 106 mg/dL (< 150) Cardiac Markers Test 10/24/24 07:08 B-Type Natriuretic Peptide 160.27 pg/mL (0-100) LFT Test 10/24/24 07:04 Alanine Aminotransferase (ALT) 34 U/L (7-40) Alkaline Phosphatase 69 U/L (46-116) Aspartate Amino Transferase (AST) 26 U/L (13-40) Total Bilirubin 2.3 mg/dL (0.2-1.0) H HgA1c, TSH Test 10/24/24 07:08 Hemoglobin A1c 5.7 % A1C (<5.7) Thyroid Stimulating Hormone (TSH) 0.53 uIU/mL (0.55-4.78) L Urinalysis Test 10/24/24 13:58 Urine Color Light-yellow (Yellow) Urine Clarity Clear (Clear) Urine pH 6.5 (5.0-9.0) Urine Specific [place] 1.026 (1.001-1.035) Urine Protein Negative (Negative) Urine Ketones 1+ (Negative) H Urine Blood 2+ /uL (Negative) H Urine Nitrite Negative (Negative) Urine Bilirubin Negative (Negative) Urine Urobilinogen Normal mg/dL (Negative) Urine Leukocyte Esterase Negative /uL (Negative) Urine RBC 19 /hpf (0 - 3) Urine Microscopic WBC 4 /HPF (0-3) H Urine Squamous Epithelial Cells None seen /hpf (<5) Urine Bacteria None seen /hpf (None Seen) Urine Glucose Normal mg/dL (Normal) Assessment/Plan Assessment/Plan The patient is a 59-year-old male morbidly obese with past medical history of hypertension presented to [facility] ED with complaint of bradycardia. Patient reports he went to urgent care stating chair, and was found to have symptomatic bradycardia, productive cough for the past 1 week, getting worse today that prompted this visit. Patient was seen and evaluated in the ED, laboratory data shows WBC 3.9, platelets 189, sodium 141, potassium 4.3, BUN 11, creatinine 1.21, GFR 68, glucose 110, total bilirubin 1.7, AST 30, ALT 47, troponin 711, blood pressure 141/75, heart rate 42, temperature 98.3 F, O2 saturation 98% on oxygen. Chest x-ray revealing cardiomegaly with no acute cardiopulmonary disease. Patient was started on heparin drip, please see medication orders section in the computer. On assessment, patient denied chest pain, no headache, no dizziness, no shortness of breaths, no nausea, no vomiting, no fever, no chills. Patient was admitted for further evaluation and medical management. Bradycardia Cardiomegaly Hypertension Essential (primary) hypertension NSTEMI (non-ST elevated myocardial infarction) 10/24/2024: has a transvenous pacemaker close monitoring in ICU possible permanent pacemaker on Saturday Plan discussed with: Patient My Orders Orders - ROZ SORENSEN DO Procedure Category Date Status Time Urine Bacterial DANAE 10/24/24 In Process Culture 13:42 Zolpidem Tartrate PHA 10/24/24 In Process (Ambien) 14:45 Date of Service: Oct 24, 2024 Billing Provider: ROZ SORENSEN DO Common Visit Codes: [id number] DISCH DAY >30min ROZ SORENSEN DO Oct 24, 2024 17:52
[2024-10-24] MEDS ORDERED: METO-159 PO (19:22)
[2024-10-24] MEDS ORDERED: AMLO1TAB22 PO (19:22)
[2024-10-24] MEDS: ATORVASTATIN 20 MG TAB PO SCH (20:44)
[2024-10-24] MEDS: ZOLPIDEM TARTRATE 5 MG TAB PO PRN (20:44)
[2024-10-25] VITALS (108 sets, daily range): BP systolic 124–198; BP diastolic 70–116; PULSE 80–85; RESP 11–43; TEMP 97.2–98.4; O2SAT 89–99
[2024-10-25 04:36] LABS: Basophils # (auto) 0 10 ^3/uL (0-0.2); Basophils % (auto) 0.7 % (0.0-2.0); Eosinophils # (auto) 0 10 ^3/uL (0-0.8); Eosinophils % (auto) 0.6 % (0.0-7.0); Hematocrit 48.7 % (41.0-53.0); Hemoglobin 16.5 g/dL (13.5-17.5); Lymphocytes # (auto) 1.6 10 ^3/uL (0.4-5.4); Lymphocytes % (auto) 31.7 % (10.0-50.0); Mean Corpuscular Hemoglobin 31.5 pg (28.0-32.0); Mean Corpuscular Volume 92.7 fL (80.0-100.0); Monocytes # (auto) 0.6 10 ^3/uL (0-1.3); Monocytes % (auto) 11.3 % (0.0-12.0); Neutrophils # (auto) 2.8 10 ^3/uL (1.6-8.6); Neutrophils % (auto) 55.7 % (37.0-80.0); Nucleated Red Blood Cells % 0.3 %; Platelet Count (auto) 195 10^3/uL (140-450); Red Blood Cells 5.25 10^6/uL (4.5-5.90); Red Cell Distribution Width 13.1 % (11.8-14.3); White Blood Cell 5.1 10^3/uL (4.4-10.8)
[2024-10-25] MEDS: ACETAMINOPHEN 325 MG TAB PO PRN (07:37)
--- NOTE | 2024-10-25 09:13 | DVHPN2 ---
Progress Note Date Seen: Oct 25, 2024 Medical Necessity Reason Pt with a Central, PICC or Fol: No Subjective Patient reports: Feels better Other Systems: no complaints underlying HR <40 on TVP Objective vital signs Vital Sign Date Time Temp Pulse Resp B/P (MAP) Pulse Ox O2 Delivery O2 Flow Rate FiO2 10/25/24 07:53 15 98 Nasal Cannula* 2 28 10/25/24 07:44 98.0 80 162/101 (121) 98.0 Total Intake and Output 10/24/24 10/24/24 10/25/24 15:00 23:00 07:00 Intake Total 779.824 ml 1041.048 ml 1091.048 ml Output Total 1400 ml 1550 ml Balance 779.824 ml -358.952 ml -458.952 ml medications Current Medications Medications Dose Ordered Sig/Reagan Route Start Time Stop Time Status Last Admin Dose Admin Amlodipine Besylate 5 mg DAILY PO 10/24/24 10:00 10/25/24 07:36 5 MG Famotidine 20 mg DAILY IV 10/24/24 10:00 10/25/24 07:37 20 MG Sodium Chloride 10 ml Q8HR IV 10/23/24 22:00 10/25/24 06:00 10 ML Acetaminophen/ Hydrocodone Bitart 1 tab Q4HP PRN PO 10/23/24 20:00 Ondansetron HCl 4 mg Q4HP PRN IV 10/23/24 20:00 10/24/24 10:00 4 MG Docusate Sodium 100 mg BIDPRN PRN PO 10/23/24 20:00 Acetaminophen 650 mg Q6HP PRN PO 10/23/24 20:00 10/25/24 07:37 650 MG Nitroglycerin 0.4 mg Q5MINP PRN SL 10/23/24 21:00 Morphine Sulfate 2 mg Q30M PRN IV 10/23/24 21:00 Hydralazine HCl 10 mg Q6HP PRN IV 10/24/24 09:00 Atorvastatin Calcium 80 mg HS PO 10/24/24 22:00 10/24/24 20:44 80 MG Sodium Chloride 1,000 ml @ 100 mls/hr Q10H IV 10/24/24 08:45 10/25/24 07:30 100 MLS/HR Zolpidem Tartrate 5 mg HSPRN PRN PO 10/24/24 14:45 10/24/24 20:44 5 MG Dopamine HCl/ Dextrose 250 ml @ 2.276 mls/ hr Q24H IV 10/25/24 09:15 UNV Examination: GENERAL:Abnormal, HEENT:Abnormal, LUNGS:Abnormal, CVS:Abnormal, ABDOMEN:Abnormal laboratory and microbiology Laboratory Tests 10/25/24 03:41 10/24/24 07:04 Test 10/24/24 07:04 Range/Units Serum Glucose 115 H 74-106 mg/dL Microbiology Date/Time Source Procedure Growth Status 10/24/24 01:20 Nose MRSA Screen - Final Complete Problem List/Assessment/Plan Problem List/Assessment/Plan nstemi anomalous coronary anatomy LVOT gradient obesity CHB recommend PPM< pt agrees to plan RN with me at bedside Plan discussed with: Patient My Orders My Orders Orders - MYA DAVENPORT MD Procedure Category Date Status Time Cl Left Heart Cath CL 10/24/24 Taken 11:42 Chest Portable XY 10/24/24 Resulted 14:06 Communication Order ORDERS 10/24/24 Transmitted 21:32 Dopamine 1600mcg/Ml PHA 10/25/24 Logged [id number] 09:15 Date of Service: Oct 25, 2024 Billing Provider: MYA DAVENPORT MD Common Visit Codes: NOT BILLABLE MYA DAVENPORT MD Oct 25, 2024 09:13
[2024-10-25] MEDS: DOPamine 1600MCG/ML D5W 250 ML IV SCH ×2 (09:15→14:30)
--- NOTE | 2024-10-25 11:03 | DVHPN2 ---
Progress Note - Dictate Date Seen: Oct 25, 2024 Medical Necessity Reason Pt with a Central, PICC or Fol: No vital signs Vital Sign Date Time Temp Pulse Resp B/P (MAP) Pulse Ox O2 Delivery O2 Flow Rate FiO2 10/25/24 10:15 80 17 160/102 (121) 93 10/25/24 09:47 Nasal Cannula* 2 28 10/25/24 07:44 98.0 98.0 Total Intake and Output 10/24/24 10/24/24 10/25/24 15:00 23:00 07:00 Intake Total 779.824 ml 1041.048 ml 1091.048 ml Output Total 1400 ml 1550 ml Balance 779.824 ml -358.952 ml -458.952 ml medications Current Medications Medications Dose Ordered Sig/Reagan Route Start Time Stop Time Status Last Admin Dose Admin Amlodipine Besylate 5 mg DAILY PO 10/24/24 10:00 10/25/24 07:36 5 MG Famotidine 20 mg DAILY IV 10/24/24 10:00 10/25/24 07:37 20 MG Sodium Chloride 10 ml Q8HR IV 10/23/24 22:00 10/25/24 09:33 10 ML Acetaminophen/ Hydrocodone Bitart 1 tab Q4HP PRN PO 10/23/24 20:00 Ondansetron HCl 4 mg Q4HP PRN IV 10/23/24 20:00 10/24/24 10:00 4 MG Docusate Sodium 100 mg BIDPRN PRN PO 10/23/24 20:00 Acetaminophen 650 mg Q6HP PRN PO 10/23/24 20:00 10/25/24 07:37 650 MG Nitroglycerin 0.4 mg Q5MINP PRN SL 10/23/24 21:00 Morphine Sulfate 2 mg Q30M PRN IV 10/23/24 21:00 Hydralazine HCl 10 mg Q6HP PRN IV 10/24/24 09:00 Atorvastatin Calcium 80 mg HS PO 10/24/24 22:00 10/24/24 20:44 80 MG Sodium Chloride 1,000 ml @ 100 mls/hr Q10H IV 10/24/24 08:45 10/25/24 07:30 100 MLS/HR Zolpidem Tartrate 5 mg HSPRN PRN PO 10/24/24 14:45 10/24/24 20:44 5 MG Dopamine HCl/ Dextrose 250 ml @ 2.276 mls/ hr Q24H IV 10/25/24 09:15 10/25/24 09:15 2.276 MLS/HR laboratory and microbiology Laboratory Tests 10/25/24 03:41 Test 10/25/24 03:41 Range/Units Serum Glucose Pending Assessment/Plan acute hypoxemia atelectases bradycardia elevated troponins events angio: no significant disease temp pacing placed US venous doppler neg/ve plan obtain CTA to r/o PE suppl 02 incent spirometry Plan discussed with: Patient FAITH VITAL MD Oct 25, 2024 11:03
[2024-10-25 11:11] LABS: Alanine Aminotransferase 31 U/L (7-40); Albumin 4.3 g/dL (3.2-4.8); Alkaline Phosphatase 72 U/L (46-116); Anion Gap 9 (5-15); Aspartate Aminotransferase 24 U/L (13-40); Calcium 9.3 mg/dL (8.7-10.4); Carbon Dioxide 24 mmol/L (20-31); Magnesium 2.2 mg/dL (1.6-2.6); Potassium 3.9 mmol/L (3.5-5.1); Sodium 140 mmol/L (136-145)
[2024-10-25 11:12] LABS: BUN/Creatinine Ratio 5.3 (10.0-20.0); Bilirubin, Total 2.1 mg/dL (0.2-1.0); Blood Urea Nitrogen < 5 mg/dL (9-23); Chloride 107 mmol/L (98-107); Glucose 117 mg/dL (74-106); Total Protein 6.6 g/dL (5.7-8.2)
[2024-10-25] MEDS: hydrALAZINE HCL 20 MG/ML VL IV PRN (13:47)
--- NOTE | 2024-10-25 20:13 | DVHINCON2 ---
Date of service: Oct 25, 2024 Referring Physician Amy Reason for Consultation Bradycardia History of Present Illness This is a 59 year old male with a PMH of HTN and obesity who presented to the ED on 10/23 with complaints of bradycardia. Patient was sent to the ED by [facility] urgent care after being found with asymptomatic bradycardia. The patient was being evaluated for a productive cough that has been ongoing for approximately 1 week. Patient states the only recent changes in his life being an increase in dosage of his metoprolol medication from a half of a 50mg table to a full 50mg tablet under advice of his bdr. In the emergency department the patient is found to be in third-degree heart block. NSTEMI peak at 700s. Chest x-ray showed cardiomegaly. EKG showed bradycardia at 36. Patient was admitted to the hospital. I am asked to consult on this patient. Family History: Cerebrovascular accident (CVA) G8 MOTHER, Onset:Unknown Prostate carcinoma G8 FATHER, Onset:Unknown Allergies: Coded Allergies: NO KNOWN ALLERGIES (Unverified , 04/02/10) Home Meds Reported Medications Amlodipine Besylate (Amlodipine Besylate) 5 Mg Tab, 5 MG PO DAILY for 30 Days, MG 10/24/24 Metoprolol Tartrate (Metoprolol Tartrate) 100 Mg Tab, 100 MG PO DAILY for 30 Days, MG 10/24/24 [Prilosec] No Conflict Check 04/02/10 Current Medications Current Medications Medications (Trade) Dose Ordered Sig/Reagan Route PRN Reason Start Time Stop Time Status Last Admin Atorvastatin Calcium (Lipitor) 80 mg HS PO 10/24/24 22:00 10/24/24 20:44 Dopamine HCl/ Dextrose 250 ml @ 2.276 mls/ hr Q24H IV 10/25/24 09:15 10/25/24 14:24 DC 10/25/24 09:15 Dopamine HCl/ Dextrose 250 ml @ 2.276 mls/ hr Q24H IV 10/25/24 14:30 10/25/24 14:30 Review of Systems Constitutional: No: Fever, Chills, Sweats, Weakness, Malaise, Other Eyes: No: Pain, Vision change, Conjunctivae inflammation, Eyelid inflammation, Other, Redness ENT: No: Ear pain, Ear discharge, Nose pain, Nose discharge, Nose congestion, Mouth pain, Mouth swelling, Throat pain, Throat swelling, Other Respiratory: Cough; No: Dry, Shortness of breath, SOB with excertion, Wheezing, Hemoptysis, Pleuritic Pain, Sputum, Wheezing, Other Cardiovascular: Other (Bradycardia); No: Chest Pain, Palpitations, Orthopnea, Paroxysmal Noc. Dyspnea, Edema, Lt Headedness Gastrointestinal: No: Nausea, Vomiting, Abdominal Pain, Diarrhea, Constipation, Melena, Hematochezia, Other Genitourinary: No Dysuria, No Frequency, No Incontinence, No Hematuria, No Retention, No Other Musculoskeletal: No: other, neck pain, shoulder pain, arm pain, back pain, hand pain, leg pain, foot pain Skin: No: Rash, Lesions, Jaundice, Bruising, Other Neurological: No: Weakness, Numbness, Incoordination, Change in speech, Confusion, Seizures, Other Vital Signs Vital Signs Date Time Temp Pulse Resp B/P (MAP) Pulse Ox O2 Delivery O2 Flow Rate FiO2 10/25/24 18:53 168/95 10/25/24 18:44 80 20 94 10/25/24 18:03 Room Air* 0 21 10/25/24 16:00 97.7 97.7 Physical Exam GENERAL: Awake, alert, oriented. Obese. LUNGS: Clear. CARDIOVASCULAR: Heart sounds are good. ABDOMEN: Soft. Labs/Diagnostic Data Labs Test 10/25/24 03:41 10/24/24 13:58 10/24/24 07:08 10/24/24 07:04 Range/Units White Blood Count 5.1 4.4-10.8 10^3/uL Red Blood Count 5.25 4.5-5.90 10^6/uL Hemoglobin 16.5 13.5-17.5 g/dL Hematocrit 48.7 41.0-53.0 % Mean Corpuscular Volume 92.7 80.0-100.0 fL Mean Corpuscular Hemoglobin 31.5 28.0-32.0 pg Mean Corpuscular Hemoglobin Concent 34.0 32.0-36.0 g/dL Red Cell Distribution Width 13.1 11.8-14.3 % Platelet Count 195 140-450 10^3/uL Mean Platelet Volume 8.5 6.9-10.8 fL Neutrophils (%) (Auto) 55.7 37.0-80.0 % Lymphocytes (%) (Auto) 31.7 10.0-50.0 % Monocytes (%) (Auto) 11.3 0.0-12.0 % Eosinophils (%) (Auto) 0.6 0.0-7.0 % Basophils (%) (Auto) 0.7 0.0-2.0 % Neutrophils # (Auto) 2.8 1.6-8.6 10 ^3/uL Lymphocytes # (Auto) 1.6 0.4-5.4 10 ^3/uL Monocytes # (Auto) 0.6 0-1.3 10 ^3/uL Eosinophils # (Auto) 0 0-0.8 10 ^3/uL Basophils # (Auto) 0 0-0.2 10 ^3/uL Nucleated Red Blood Cells 0.3 % Sodium Level 140 136-145 mmol/L Potassium Level 3.9 3.5-5.1 mmol/L Chloride Level 107 98-107 mmol/L Carbon Dioxide Level 24 20-31 mmol/L Anion Gap 9 5-15 Blood Urea Nitrogen < 5 L 9-23 mg/dL Creatinine 0.94 0.700-1.30 mg/dL Glomerular Filtration Rate Calc 92 >90 mL/min BUN/Creatinine Ratio 5.3 L 10.0-20.0 Serum Glucose 117 H 74-106 mg/dL Calcium Level 9.3 8.7-10.4 mg/dL Magnesium Level 2.2 1.6-2.6 mg/dL Total Bilirubin 2.1 H 0.2-1.0 mg/dL Aspartate Amino Transferase (AST) 24 13-40 U/L Alanine Aminotransferase (ALT) 31 7-40 U/L Alkaline Phosphatase 72 46-116 U/L Total Protein 6.6 5.7-8.2 g/dL Albumin 4.3 3.2-4.8 g/dL Urine Color Light-yellow Yellow Urine Clarity Clear Clear Urine pH 6.5 5.0-9.0 Urine Specific [place] 1.026 1.001-1.035 Urine Protein Negative Negative Urine Ketones 1+ H Negative Urine Blood 2+ H Negative /uL Urine Nitrite Negative Negative Urine Bilirubin Negative Negative Urine Urobilinogen Normal Negative mg/dL Urine Leukocyte Esterase Negative Negative /uL Urine RBC 19 0 - 3 /hpf Urine Microscopic WBC 4 H 0-3 /HPF Urine Squamous Epithelial Cells None seen <5 /hpf Urine Bacteria None seen None Seen /hpf Urine Glucose Normal Normal mg/dL Hemoglobin A1c 5.7 <5.7 % A1C Troponin I High Sensitivity 565 *H </=54 ng/L B-Type Natriuretic Peptide 160.27 0-100 pg/mL Triglycerides Level 106 < 150 mg/dL Cholesterol Level 193 < 200 mg/dL LDL Cholesterol 141 H < 100 mg/dL HDL Cholesterol 41 40-59 mg/dL Thyroid Stimulating Hormone (TSH) 0.53 L 0.55-4.78 uIU/mL Prothrombin Time 11.3 9.3-11.8 sec Prothrombin Time INR 1.07 0.9-1.15 Activated Partial Thromboplast Time 48.8 H 24.5-34.5 SEC Microbiology Date/Time Source Procedure Growth Status 10/24/24 13:58 Urine - [place] Urine Culture - Preliminary Resulted 10/24/24 01:20 Nose MRSA Screen - Final Complete Assessment Bradycardia. Cardiomegaly. Hypertension. Essential (primary) hypertension. NSTEMI (non-ST elevated myocardial infarction). Anomalous coronary anatomy. LVOT gradient. Obesity. CHB. Plan/Recommendation I agree with your ongoing assessment and care of plan. PPM insertion. Risks and benefits discussed with the patient. Morphine and [place] for pain management. Amlodipine. Lipitor. Dopamine drip. IV Hydralazine for an SBP > 150. Additional plan as per the hospital course. Critical care time of 90 minutes provided to include time spent evaluation of patient at bedside, when appropriate patient/family education for diagnosis, treatment plan, review of pertinent medical information and discussion of care with specialty providers and PCP. Plan discussed with: Patient FABRICE BELL MD Oct 25, 2024 19:55
--- NOTE | 2024-10-25 21:13 | DVHPN2 ---
Reviewed: Care Plan, H&P, Labs, Medications, Previous Orders, Radiology Changes from previous H/P or p: No Changes General: Per HPI Eyes: No Pain, No Vision change, No Conjunctivae inflammation, No Eyelid inflammation, No Other, No Redness ENT: No Ear pain, No Ear discharge, No Nose pain, No Nose discharge, No Nose congestion, No Mouth pain, No Mouth swelling, No Throat pain, No Throat swelling, No Other Cardiovascular: No Chest Pain, No Palpitations, No Orthopnea, No Paroxysmal Noc. Dyspnea, No Edema, No Lt Headedness; Other (Bradycardia) Respiratory: Cough; No Dry, No Shortness of breath, No SOB with excertion, No Wheezing, No Hemoptysis, No Pleuritic Pain, No Sputum, No Other Gastrointestinal: No Nausea, No Vomiting, No Abdominal Pain, No Diarrhea, No Constipation, No Melena, No Hematochezia, No Other Genitourinary: No Dysuria, No Frequency, No Incontinence, No Hematuria, No Retention, No Other Musculoskeletal: No other, No neck pain, No shoulder pain, No arm pain, No back pain, No hand pain, No leg pain, No foot pain Skin: No Rash, No Lesions, No Jaundice, No Bruising, No Other Objective Vitals Vital Signs Date Time Temp Pulse Resp B/P (MAP) Pulse Ox O2 Delivery O2 Flow Rate FiO2 10/25/24 18:53 168/95 10/25/24 18:44 80 20 94 10/25/24 18:03 Room Air* 0 21 10/25/24 16:00 97.7 97.7 Intake/Output Intake and Output 10/25/24 07:00 Intake Total 2911.920 ml Output Total 2950 ml Balance -38.080 ml Intake Oral 350 ml IV Total 2561.920 ml Output Urine Total 2950 ml Medications Current Medications Medications Dose Ordered Sig/Reagan Route Start Time Stop Time Status Last Admin Dose Admin Amlodipine Besylate 5 mg DAILY PO 10/24/24 10:00 10/25/24 07:36 5 MG Famotidine 20 mg DAILY IV 10/24/24 10:00 10/25/24 07:37 20 MG Sodium Chloride 10 ml Q8HR IV 10/23/24 22:00 10/25/24 09:33 10 ML Acetaminophen/ Hydrocodone Bitart 1 tab Q4HP PRN PO 10/23/24 20:00 Ondansetron HCl 4 mg Q4HP PRN IV 10/23/24 20:00 10/25/24 20:13 4 MG Docusate Sodium 100 mg BIDPRN PRN PO 10/23/24 20:00 Acetaminophen 650 mg Q6HP PRN PO 10/23/24 20:00 10/25/24 07:37 650 MG Nitroglycerin 0.4 mg Q5MINP PRN SL 10/23/24 21:00 Morphine Sulfate 2 mg Q30M PRN IV 10/23/24 21:00 Hydralazine HCl 10 mg Q6HP PRN IV 10/24/24 09:00 10/25/24 18:53 10 MG Atorvastatin Calcium 80 mg HS PO 10/24/24 22:00 10/24/24 20:44 80 MG Zolpidem Tartrate 5 mg HSPRN PRN PO 10/24/24 14:45 10/24/24 20:44 5 MG Dopamine HCl/ Dextrose 250 ml @ 2.276 mls/ hr Q24H IV 10/25/24 14:30 10/25/24 14:30 2.276 MLS/HR Laboratory Results Laboratory Tests 10/25/24 03:41 Chemistry Test 10/25/24 03:41 Albumin 4.3 g/dL (3.2-4.8) Calcium Level 9.3 mg/dL (8.7-10.4) Magnesium Level 2.2 mg/dL (1.6-2.6) Total Protein 6.6 g/dL (5.7-8.2) LFT Test 10/25/24 03:41 Alanine Aminotransferase (ALT) 31 U/L (7-40) Alkaline Phosphatase 72 U/L (46-116) Aspartate Amino Transferase (AST) 24 U/L (13-40) Total Bilirubin 2.1 mg/dL (0.2-1.0) H Urinalysis Test 10/24/24 13:58 Urine Color Light-yellow (Yellow) Urine Clarity Clear (Clear) Urine pH 6.5 (5.0-9.0) Urine Specific [place] 1.026 (1.001-1.035) Urine Protein Negative (Negative) Urine Ketones 1+ (Negative) H Urine Blood 2+ /uL (Negative) H Urine Nitrite Negative (Negative) Urine Bilirubin Negative (Negative) Urine Urobilinogen Normal mg/dL (Negative) Urine Leukocyte Esterase Negative /uL (Negative) Urine RBC 19 /hpf (0 - 3) Urine Microscopic WBC 4 /HPF (0-3) H Urine Squamous Epithelial Cells None seen /hpf (<5) Urine Bacteria None seen /hpf (None Seen) Urine Glucose Normal mg/dL (Normal) Microbiology Microbiology Date/Time Source Procedure Growth Status 10/24/24 13:58 Urine - [place] Urine Culture - Preliminary Resulted 10/24/24 01:20 Nose MRSA Screen - Final Complete Assessment/Plan Assessment/Plan The patient is a 59-year-old male morbidly obese with past medical history of hypertension presented to [facility] ED with complaint of bradycardia. Patient reports he went to urgent care stating chair, and was found to have symptomatic bradycardia, productive cough for the past 1 week, getting worse today that prompted this visit. Patient was seen and evaluated in the ED, laboratory data shows WBC 3.9, platelets 189, sodium 141, potassium 4.3, BUN 11, creatinine 1.21, GFR 68, glucose 110, total bilirubin 1.7, AST 30, ALT 47, troponin 711, blood pressure 141/75, heart rate 42, temperature 98.3 F, O2 saturation 98% on oxygen. Chest x-ray revealing cardiomegaly with no acute cardiopulmonary disease. Patient was started on heparin drip, please see medication orders section in the computer. On assessment, patient denied chest pain, no headache, no dizziness, no shortness of breaths, no nausea, no vomiting, no fever, no chills. Patient was admitted for further evaluation and medical management. Bradycardia Cardiomegaly Hypertension Essential (primary) hypertension NSTEMI (non-ST elevated myocardial infarction) 10/24/2024: has a transvenous pacemaker close monitoring in ICU possible permanent pacemaker on Saturday10/25/2024: blood in urine, likely due to traumatic [place] awaiting for pacemaker placement on Saturday discussed with pt at bedside Plan discussed with: Patient My Orders Orders - ROZ SORENSEN DO Procedure Category Date Status Time Complete Blood Count LAB 10/26/24 Verified 04:00 Magnesium LAB 10/26/24 Verified 04:00 Date of Service: Oct 25, 2024 Billing Provider: ROZ SORENSEN DO Common Visit Codes: [id number] CARE 30-74 MIN ROZ SORENSEN DO Oct 25, 2024 21:13
[2024-10-26] VITALS (52 sets, daily range): BP systolic 130–170; BP diastolic 71–107; PULSE 60–80; RESP 10–30; TEMP 98.6–98.9; O2SAT 81–99
[2024-10-26] MEDS: HYDROcodone-ACET 5/325MG TAB PO PRN (03:33)
[2024-10-26 04:19] LABS: Basophils # (auto) 0 10 ^3/uL (0-0.2); Basophils % (auto) 0.5 % (0.0-2.0); Eosinophils # (auto) 0 10 ^3/uL (0-0.8); Eosinophils % (auto) 0.5 % (0.0-7.0); Hematocrit 48.5 % (41.0-53.0); Hemoglobin 16.3 g/dL (13.5-17.5); Lymphocytes # (auto) 1.7 10 ^3/uL (0.4-5.4); Lymphocytes % (auto) 29.7 % (10.0-50.0); Mean Corpuscular Hemoglobin 30.8 pg (28.0-32.0); Mean Corpuscular Hgb Conc. 33.7 g/dL (32.0-36.0); Mean Corpuscular Volume 91.5 fL (80.0-100.0); Monocytes # (auto) 0.5 10 ^3/uL (0-1.3); Monocytes % (auto) 9.3 % (0.0-12.0); Neutrophils # (auto) 3.4 10 ^3/uL (1.6-8.6); Nucleated Red Blood Cells % 0.2 %; Platelet Count (auto) 199 10^3/uL (140-450); Red Cell Distribution Width 13.3 % (11.8-14.3); White Blood Cell 5.6 10^3/uL (4.4-10.8)
[2024-10-26 04:32] LABS: Alanine Aminotransferase 29 U/L (7-40); Albumin 4.5 g/dL (3.2-4.8); Alkaline Phosphatase 76 U/L (46-116); Anion Gap 9 (5-15); Aspartate Aminotransferase 25 U/L (13-40); BUN/Creatinine Ratio 6.2 (10.0-20.0); Calcium 9.7 mg/dL (8.7-10.4); Carbon Dioxide 23 mmol/L (20-31); Chloride 107 mmol/L (98-107); Magnesium 2.3 mg/dL (1.6-2.6); Potassium 3.7 mmol/L (3.5-5.1); Sodium 139 mmol/L (136-145); Total Protein 6.8 g/dL (5.7-8.2)
[2024-10-26 04:40] LABS: Bilirubin, Total 2.3 mg/dL (0.2-1.0); Blood Urea Nitrogen 6 mg/dL (9-23); Glucose 113 mg/dL (74-106)
--- NOTE | 2024-10-26 08:22 | DVHPN2 ---
Progress Note Date Seen: Oct 26, 2024 Medical Necessity Reason Pt with a Central, PICC or Fol: No Subjective Patient reports: Feels better Other Systems: pacer planned for today pacing at 80 HR Objective vital signs Vital Sign Date Time Temp Pulse Resp B/P (MAP) Pulse Ox O2 Delivery O2 Flow Rate FiO2 10/26/24 07:30 17 97 Room Air* 0 21 10/26/24 07:30 80 10/26/24 05:06 156/81 (106) 10/25/24 20:14 98.4 98.4 Total Intake and Output 10/25/24 10/25/24 10/26/24 15:00 23:00 07:00 Intake Total 736.418 ml 518.208 ml 815.932 ml Output Total 1400 ml 1000 ml Balance 736.418 ml -881.792 ml -184.068 ml medications Current Medications Medications Dose Ordered Sig/Reagan Route Start Time Stop Time Status Last Admin Dose Admin Amlodipine Besylate 5 mg DAILY PO 10/24/24 10:00 10/25/24 07:36 5 MG Famotidine 20 mg DAILY IV 10/24/24 10:00 10/25/24 07:37 20 MG Sodium Chloride 10 ml Q8HR IV 10/23/24 22:00 10/26/24 06:13 10 ML Acetaminophen/ Hydrocodone Bitart 1 tab Q4HP PRN PO 10/23/24 20:00 10/26/24 03:33 1 TAB Ondansetron HCl 4 mg Q4HP PRN IV 10/23/24 20:00 10/25/24 20:13 4 MG Docusate Sodium 100 mg BIDPRN PRN PO 10/23/24 20:00 Acetaminophen 650 mg Q6HP PRN PO 10/23/24 20:00 10/25/24 07:37 650 MG Nitroglycerin 0.4 mg Q5MINP PRN SL 10/23/24 21:00 Morphine Sulfate 2 mg Q30M PRN IV 10/23/24 21:00 Hydralazine HCl 10 mg Q6HP PRN IV 10/24/24 09:00 10/25/24 18:53 10 MG Atorvastatin Calcium 80 mg HS PO 10/24/24 22:00 10/25/24 21:43 80 MG Zolpidem Tartrate 5 mg HSPRN PRN PO 10/24/24 14:45 10/25/24 21:43 5 MG Dopamine HCl/ Dextrose 250 ml @ 2.276 mls/ hr Q24H IV 10/25/24 14:30 10/25/24 14:30 2.276 MLS/HR Examination: GENERAL:Abnormal, HEENT:Abnormal, LUNGS:Abnormal, CVS:Abnormal, ABDOMEN:Abnormal laboratory and microbiology Laboratory Tests 10/26/24 03:28 Test 10/26/24 03:28 Range/Units Serum Glucose 113 H 74-106 mg/dL Microbiology Date/Time Source Procedure Growth Status 10/24/24 13:58 Urine - [place] Urine Culture - Preliminary Resulted 10/24/24 01:20 Nose MRSA Screen - Final Complete Problem List/Assessment/Plan Problem List/Assessment/Plan nstemi anomalous coronary anatomy LVOT gradient obesity CHB recommend PPM< pt agrees to plan RN with me at bedside Plan discussed with: Patient My Orders My Orders Orders - MYA DAVENPORT MD Procedure Category Date Status Time Dopamine 1600mcg/Ml PHA 10/25/24 In Process D5W 14:30 Communication Order ORDERS 10/25/24 Transmitted 09:15 Date of Service: Oct 26, 2024 Billing Provider: MYA DAVENPORT MD Common Visit Codes: NOT BILLABLE MYA DAVENPORT MD Oct 26, 2024 08:22
--- NOTE | 2024-10-26 12:42 | ECG ---
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
--- NOTE | 2024-10-26 14:49 | DVHPN2 ---
Progress Note - Dictate Date Seen: Oct 26, 2024 Medical Necessity Reason Pt with a Central, PICC or Fol: No Subjective Patient was seen and evaluated in follow up in the ICU. Patient on dopamine drip. Pacing at 80 today. Per RN, the patient continues to take off blood pressure cuff. CBC is unremarkable. The patient has been recommended for PPM insertion. Risks and benefits discussed with the patient. vital signs Vital Sign Date Time Temp Pulse Resp B/P (MAP) Pulse Ox O2 Delivery O2 Flow Rate FiO2 10/26/24 14:21 18 99 Room Air* 0 21 10/26/24 14:00 80 10/26/24 12:30 10/26/24 12:00 98.7 98.7 Total Intake and Output 10/25/24 10/25/24 10/26/24 15:00 23:00 07:00 Intake Total 736.418 ml 518.208 ml 818.208 ml Output Total 1400 ml 1000 ml Balance 736.418 ml -881.792 ml -181.792 ml medications Current Medications Medications Dose Ordered Sig/Reagan Route Start Time Stop Time Status Last Admin Dose Admin Amlodipine Besylate 5 mg DAILY PO 10/24/24 10:00 10/25/24 07:36 5 MG Famotidine 20 mg DAILY IV 10/24/24 10:00 10/26/24 10:15 20 MG Sodium Chloride 10 ml Q8HR IV 10/23/24 22:00 10/26/24 06:13 10 ML Acetaminophen/ Hydrocodone Bitart 1 tab Q4HP PRN PO 10/23/24 20:00 10/26/24 03:33 1 TAB Ondansetron HCl 4 mg Q4HP PRN IV 10/23/24 20:00 10/25/24 20:13 4 MG Docusate Sodium 100 mg BIDPRN PRN PO 10/23/24 20:00 Acetaminophen 650 mg Q6HP PRN PO 10/23/24 20:00 10/25/24 07:37 650 MG Nitroglycerin 0.4 mg Q5MINP PRN SL 10/23/24 21:00 Morphine Sulfate 2 mg Q30M PRN IV 10/23/24 21:00 Hydralazine HCl 10 mg Q6HP PRN IV 10/24/24 09:00 10/25/24 18:53 10 MG Atorvastatin Calcium 80 mg HS PO 10/24/24 22:00 10/25/24 21:43 80 MG Zolpidem Tartrate 5 mg HSPRN PRN PO 10/24/24 14:45 10/25/24 21:43 5 MG Dopamine HCl/ Dextrose 250 ml @ 2.276 mls/ hr Q24H IV 10/25/24 14:30 10/25/24 14:30 2.276 MLS/HR objective GENERAL: Awake, alert, oriented. Obese. LUNGS: Clear. CARDIOVASCULAR: Heart sounds are good. ABDOMEN: Soft. laboratory and microbiology Laboratory Tests 10/26/24 03:28 Test 10/26/24 03:28 Range/Units Serum Glucose 113 H 74-106 mg/dL Problem List Bradycardia. Cardiomegaly. Hypertension. Essential (primary) hypertension. NSTEMI (non-ST elevated myocardial infarction). Anomalous coronary anatomy. LVOT gradient. Obesity. CHB. Assessment/Plan Continued all current supportive medical care. PPM insertion. Risks and benefits discussed with the patient. Morphine and [place] for pain management. Amlodipine. Lipitor. Dopamine drip. IV Hydralazine for an SBP > 150. Additional plan as per the hospital course. Critical care time of 45 minutes provided to include time spent evaluation of patient at bedside, when appropriate patient/family education for diagnosis, treatment plan, review of pertinent medical information and discussion of care with specialty providers and PCP. Plan discussed with: Patient FABRICE BELL MD Oct 26, 2024 14:49
[2024-10-26] MEDS ORDERED: fentaNYL CITRATE 100 MCG/2 ML VL ONE ×2 (15:11→16:31)
[2024-10-26] MEDS ORDERED: LIDOCAINE 2%HCL (LOCAL ANESTH.) INJ 20ML MDV ONE ×3 (15:12→17:08)
[2024-10-26] MEDS ORDERED: MIDAZOLAM HCL 2MG/2ML 2ml VIAL (1mg/ml) ONE (15:12)
[2024-10-26] MEDS ORDERED: VANCOMYCIN 1GM/250ML KIT 250 ML IV ONE (15:18)
[2024-10-26] MEDS ORDERED: IODIXANOL 320MG/ML 100ML BTL IV ONE (15:21)
[2024-10-26] MEDS ORDERED: VANCOMYCIN HCL 1000 MG VL ONE ×2 (15:30→17:15)
[2024-10-26] MEDS ORDERED: ONDANSETRON HCL 4 MG/2 ML VIAL ONE (17:35)
--- NOTE | 2024-10-26 19:05 | DVH ---
CHEST RADIOGRAPH Indication: S/P PACEMAKER Technique: Single frontal view of the chest was obtained Comparison: XY CHEST PORTABLE on DOS: 10/24/24, XY CHEST PORTABLE on DOS: 10/23/24 FINDINGS: Lines and Tubes: None. Left-sided approach dual lead pacemaker terminating within right atrium and r ight ventricle. Lungs: Diffuse interstitial prominence bilateral lower lung zone opacities. Obscuration of the left h emidiaphragm. No pneumothorax. Cardiomediastinal contours: Moderate cardiomegaly; relatively unchanged from prior imaging. Bones: No acute osseous abnormality. IMPRESSION: Moderate cardiomegaly ; relatively unchanged from prior imaging with mild pulmonary vascular congesti on. Pericardial effusion can not be excluded. Interval placement of a left-sided approach pacemaker terminating within right atrium and right ventr icle. Obscuration of the left hemidiaphragm which may be from overlying cardiac silhouette. Underlying pleu ral effusion/ atelectasis can not be excluded. Right lower lung zone opacity which may represent atelectasis.
[2024-10-26] MEDS ORDERED: MORPHINE SULFATE INJ 2 MG/ml SYRG IV PRN (19:15)
--- NOTE | 2024-10-26 19:22 | DVHPNRES ---
Progress Note Date Seen: Oct 26, 2024 Resident Creating Document: DANIAL FORMAN RESIDENT Medical Necessity Reason Pt with a Central, PICC or Fol: No Subjective Review of Systems Findings with the patient at bedside with IV dopamine drip to maintaining the h eart rate above 60, patient is hemodynamically stable, with a intravenous pacer. Pending pacemaker. Changes from previous H/P or p: Changes Objective vital signs Vital Sign Date Time Temp Pulse Resp B/P (MAP) Pulse Ox O2 Delivery O2 Flow Rate FiO2 10/26/24 18:30 66 22 130/71 (90) 96 10/26/24 18:04 Room Air* 0 21 10/26/24 18:00 98.9 98.9 Total Intake and Output 10/25/24 10/25/24 10/26/24 15:00 23:00 07:00 Intake Total 736.418 ml 518.208 ml 818.208 ml Output Total 1400 ml 1000 ml Balance 736.418 ml -881.792 ml -181.792 ml medications Current Medications Medications Dose Ordered Sig/Reagan Route Start Time Stop Time Status Last Admin Dose Admin Amlodipine Besylate 5 mg DAILY PO 10/24/24 10:00 10/25/24 07:36 5 MG Famotidine 20 mg DAILY IV 10/24/24 10:00 10/26/24 10:15 20 MG Sodium Chloride 10 ml Q8HR IV 10/23/24 22:00 10/26/24 14:00 10 ML Acetaminophen/ Hydrocodone Bitart 1 tab Q4HP PRN PO 10/23/24 20:00 10/26/24 03:33 1 TAB Ondansetron HCl 4 mg Q4HP PRN IV 10/23/24 20:00 10/25/24 20:13 4 MG Docusate Sodium 100 mg BIDPRN PRN PO 10/23/24 20:00 Acetaminophen 650 mg Q6HP PRN PO 10/23/24 20:00 10/25/24 07:37 650 MG Nitroglycerin 0.4 mg Q5MINP PRN SL 10/23/24 21:00 Morphine Sulfate 2 mg Q30M PRN IV 10/23/24 21:00 Hydralazine HCl 10 mg Q6HP PRN IV 10/24/24 09:00 10/25/24 18:53 10 MG Atorvastatin Calcium 80 mg HS PO 10/24/24 22:00 10/25/24 21:43 80 MG Zolpidem Tartrate 5 mg HSPRN PRN PO 10/24/24 14:45 10/25/24 21:43 5 MG Vancomycin HCl 200 ml @ 200 mls/hr Q12HR IV 10/27/24 04:00 10/27/24 10:59 Doxycycline Monohydrate 100 mg Q12HR PO 10/26/24 22:00 Morphine Sulfate 1 mg Q4HP PRN IV 10/26/24 19:15 Examination: GENERAL:Normal, HEENT:Normal, NECK:Normal, LUNGS:Normal (Left heart catheterization with the right radial area. Intact no neurovascular damage, has bled sided pacemaker pocket, local mild tenderness no immediate complication noted.), CVS:Normal, ABDOMEN:Normal, MSK:Normal, SKIN:Normal, NEURO:Normal, :Normal laboratory and microbiology Laboratory Tests 10/26/24 03:28 Test 10/26/24 03:28 Range/Units Serum Glucose 113 H 74-106 mg/dL Microbiology Date/Time Source Procedure Growth Status 10/24/24 13:58 Urine - [place] Urine Culture - Final Complete 10/24/24 01:20 Nose MRSA Screen - Final Complete Labs and/or images reviewed: Labs reviewed by me, Image(s) reviewed by me Problem List/Assessment/Plan Problem List/Assessment/Plan ICU Course: A 59-year-old morbidly obese male with a history of hypertension presented to the ED with bradycardia and a worsening productive cough. Initial evaluation revealed symptomatic bradycardia, cardiomegaly on chest x-ray, and elevated troponin levels. Despite normal oxygen saturation and no acute cardiopulmonary disease, he was started on a heparin drip and admitted for further evaluation and management. He denied experiencing chest pain, headache, dizziness, shortness of breath, nausea, vomiting, fever, or chills. Hospitalization day: 4 A. Neurology: # insomnia zolpidem tartrate 5 mg p.o. as needed for sleep B. 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 Placement of a temporary transvenous pacemaker. # sick sinus syndrome: Baseline junctional bradycardia: Status post to chamber pacemaker implant. Patient needed dopamine support, with the external transvenous pacing now on implanted dual-chamber pacemaker. Avoid beta blockers CCB for mak blocking till pacemaker checked. Repeat chest x-ray for delayed pneumothorax. Pain management with q.4 p.r.n. morphine. We will likely discharge the patient home with short course of [place]. Medtronic device evaluation pending tomorrow a.m.. #essential hypertension: [place] blood pressure below 140/90, home dose amlodipine 5mg daily to continue. # left ventricular hypertrophy: Likely due to hypertensive cardiomyopathy but HOCM is differential diagnosis. LVEF 60%. C. Respiratory: # distant history of smoking, other time patient is saturating pretty well in room air. [place] SpO2 more than 94%. D. Gastrointestinal: #Hyperbilirubinemia: CMP follow up, unremarkable abdominal exam. E. Genitourinary: #on Stewart's catheter F. Infectious Disease: # status post placement of pacemaker: IV vancomycin, 14 days of doxycycline 100 b.i.d. for prophylactic pocket infection. G. Hematology & Oncology: H&H stable, repeat CBC tomorrow, transfusion threshold hemoglobin of 8 given known CAD. H. Nephrology: Uncomplicated I. Endocrine: # grade 2 obesity with a BMI of 37.3, weight loss counseling done. # ? Hypothyroidism: To rule out hypothyroidism free T3-T4 to check. J. MSK: Peripheral vasculature intact, no signs of DVT. Physical therapy to ensure patient's stability intact. K. Prophylaxis: PPI: IV famotidine 20 DVT: SCDs avoid anticoagulation given recent implantation of pacemaker. L. Lines & Drains (with insertion date): IV: Right and left total 3 IV peripheral line since 10/24/2024. Status post right wrist access previously for cardiac catheterization. On Stewart's catheter, since 10/24/2024. will dc at discharge. M. Drips: Off of dopamine. N. Disposition: Downgrade to telemetry Floor. Possible discharge home tomorrow. Code status: Full code. The plan was discussed with the ICU attending Dr. Quintana. The patient care consists of total 81 minutes of critical care time excluding the procedures. Dictated by Danial Forman MD with 3M MModal Fluency. Plan discussed with: Patient, Other (primary team. ) My Orders My Orders Orders - DANIAL FORMAN Procedure Category Date Status Time Free T3 LAB 10/27/24 Verified 04:00 Free T4 (Free LAB 10/27/24 Verified Thyroxine) 04:00 Complete Blood Count LAB 10/27/24 Verified 04:00 Chest Portable XY 10/27/24 Logged 04:00 Pt Request For Service PT 10/26/24 Logged 18:45 Morphine Sulfate PHA 10/26/24 In Process Injection 19:15 Sequential YAHAIRA 10/26/24 In Process Compression Device 19:04 Date of Service: Oct 26, 2024 Billing Provider: JATIN QUINTANA MD Common Visit Codes: 16238-RAZVMIAS CARE 30-74 MIN, 07297-NSFWZRUM CARE-EACH +30MIN DANIAL FORMAN Oct 26, 2024 19:22 JATIN QUINTANA MD Oct 27, 2024 14:07
[2024-10-26] MEDS: DOXYCYCLINE 100 MG TAB/CAP PO SCH (21:44)
[2024-10-27] VITALS (10 sets, daily range): BP systolic 94–159; BP diastolic 63–102; PULSE 70–87; RESP 18–20; TEMP 36.9; O2SAT 94–98
[2024-10-27] MEDS: VANCOMYCIN 1GM/250ML KIT 200 ML IV SCH (03:34)
--- NOTE | 2024-10-27 04:00 | DVHOP ---
DATE OF SURGERY: 10/26/2024 TECHNIQUE PERFORMED: * Emergency case. * Left subclavian venography. * Management of conscious sedation. * Fluoroscopic guidance and supervision. * Insertion of a needle into the left subclavian. * Implantation of a dual chamber permanent pacemaker in left subclavian region (Medtronic, MRI approved). * Interrogation of the device. COMPLICATIONS: None. ASSISTANTS: Assisted by our staff over here is Marshall. Other assistants are Emma Rasmussen Janice today, 10/26/2024. INDICATIONS: The patient has underlying complete heart block, heart rate going down below 30 and he was on temporary pacing wire. Procedure was eventually discussed in a standard manner. DESCRIPTION OF PROCEDURE: Indications, risks, benefits all have been explained and understands very well. The patient was brought to our laboratory apparatus glass grinder. The left subclavian area thoroughly cleaned with soap and Betadine. Under the fluoroscopic guidance, the left subclavian venography was done. It was difficult, but able to get a vein and then, the wire was passed, needle was removed and lidocaine was given. An incision was made 2 inches semi-horizontally. Subcutaneous pocket was made. Bleeding sites all have been cauterized. A 9-Pashto venous sheath was passed, dilator was removed, and subsequently now we have put the ventricular lead it was a passive lead. Subsequently, we put a 7-Pashto sheath, atrial lead was adjusted in the atrium in standard manner. Subsequently, both atrial and ventricular leads were sutured and subsequently we put a pulse generator, screwed in very well, put under the subcutaneous pocket also. The whole area was cleaned with antibiotic solution. Vancomycin powder also has been applied. We also put antibiotic sleeve also and the whole area was cleaned with antibiotic solution. We put a pulse generator, screwed in very well and put under the subcutaneous pocket. With the help of 2-0 Vicryl, followed by 3-0, followed by 4-0 Monocryl, the whole wound has been very well sutured. Dermabond applied. Tincture of benzoin, Steri-Strip, Telfa, Op-Site applied. The procedure went well. The following parameters available at this time: The patient's right atrium is 1.8 Right ventricular R-wave is 20, impedance is 1024, threshold 0.5. CONCLUSION: Successful implantation of a dual chamber permanent pacemaker without any complication. Procedure went well. Daphnie Mcmahon MD MP/SELINA/KALI/ESTHER TID: [id number] RECEIPT: [id number] MTDD
[2024-10-27 06:20] LABS: Basophils # (auto) 0 10 ^3/uL (0-0.2); Basophils % (auto) 0.3 % (0.0-2.0); Eosinophils # (auto) 0 10 ^3/uL (0-0.8); Eosinophils % (auto) 0.2 % (0.0-7.0); Hematocrit 47.6 % (41.0-53.0); Hemoglobin 15.9 g/dL (13.5-17.5); Lymphocytes # (auto) 1.2 10 ^3/uL (0.4-5.4); Lymphocytes % (auto) 19.5 % (10.0-50.0); Mean Corpuscular Hgb Conc. 33.5 g/dL (32.0-36.0); Mean Corpuscular Volume 92.5 fL (80.0-100.0); Monocytes # (auto) 0.6 10 ^3/uL (0-1.3); Monocytes % (auto) 9.5 % (0.0-12.0); Neutrophils # (auto) 4.3 10 ^3/uL (1.6-8.6); Neutrophils % (auto) 70.5 % (37.0-80.0); Nucleated Red Blood Cells % 0.1 %; Platelet Count (auto) 198 10^3/uL (140-450); Red Blood Cells 5.15 10^6/uL (4.5-5.90); Red Cell Distribution Width 13.2 % (11.8-14.3); White Blood Cell 6.1 10^3/uL (4.4-10.8)
[2024-10-27 06:35] LABS: Free T3 2.74 pg/mL (2.3-4.2)
[2024-10-27 06:36] LABS: Free T4 (Free Thyroxine) 1.24 ng/dL (0.89-1.76)
--- NOTE | 2024-10-27 07:21 | DVH ---
EXAM: XR Chest, 1 View CLINICAL INDICATION: complication of the pacemaker placement. TECHNIQUE: Frontal view of the chest. COMPARISON: XY CHEST PORTABLE on DOS: 10/26/24, XY CHEST PORTABLE on DOS: 10/24/24, XY CHEST PORTABLE on DOS: 10/23/24 FINDINGS: LUNGS AND PLEURAL SPACES: See below. HEART: Cardiomegaly with mild congestion. MEDIASTINUM: Unremarkable. Normal mediastinal contour. BONES/JOINTS: Unremarkable. No acute fracture. TUBES, LINES AND DEVICES: Left-sided cardiac pacemaker. OTHER FINDINGS: . None. IMPRESSION: Cardiomegaly with mild congestion.
[2024-10-27] MEDS ORDERED: DOXY150C6 PO (12:24)
--- NOTE | 2024-10-27 15:12 | DVHPN2 ---
Progress Note Date Seen: Oct 27, 2024 Medical Necessity Reason Pt with a Central, PICC or Fol: No Subjective Other Systems: sp ppm doing well Objective vital signs Vital Sign Date Time Temp Pulse Resp B/P (MAP) Pulse Ox O2 Delivery O2 Flow Rate FiO2 10/27/24 13:00 98.4 78 20 159/96 (117) 95 98.4 10/27/24 08:00 Room Air* 0 21 Total Intake and Output 10/26/24 10/26/24 10/27/24 15:00 23:00 07:00 Intake Total 18.207 ml 450 ml Output Total 800 ml 500 ml Balance 18.207 ml -800 ml -50 ml medications Current Medications Medications Dose Ordered Sig/Reagan Route Start Time Stop Time Status Last Admin Dose Admin Amlodipine Besylate 5 mg DAILY PO 10/24/24 10:00 10/27/24 10:26 5 MG Famotidine 20 mg DAILY IV 10/24/24 10:00 10/26/24 10:15 20 MG Sodium Chloride 10 ml Q8HR IV 10/23/24 22:00 10/27/24 05:23 10 ML Acetaminophen/ Hydrocodone Bitart 1 tab Q4HP PRN PO 10/23/24 20:00 10/26/24 21:45 1 TAB Ondansetron HCl 4 mg Q4HP PRN IV 10/23/24 20:00 10/27/24 11:07 4 MG Docusate Sodium 100 mg BIDPRN PRN PO 10/23/24 20:00 Acetaminophen 650 mg Q6HP PRN PO 10/23/24 20:00 10/25/24 07:37 650 MG Nitroglycerin 0.4 mg Q5MINP PRN SL 10/23/24 21:00 Morphine Sulfate 2 mg Q30M PRN IV 10/23/24 21:00 Hydralazine HCl 10 mg Q6HP PRN IV 10/24/24 09:00 10/25/24 18:53 10 MG Atorvastatin Calcium 80 mg HS PO 10/24/24 22:00 10/26/24 21:44 80 MG Zolpidem Tartrate 5 mg HSPRN PRN PO 10/24/24 14:45 10/25/24 21:43 5 MG Doxycycline Monohydrate 100 mg Q12HR PO 10/26/24 22:00 10/27/24 10:26 100 MG Morphine Sulfate 1 mg Q4HP PRN IV 10/26/24 19:15 Examination: GENERAL:Abnormal, HEENT:Abnormal, LUNGS:Abnormal, CVS:Abnormal, ABDOMEN:Abnormal laboratory and microbiology Laboratory Tests 10/27/24 05:13 10/26/24 03:28 Test 10/26/24 03:28 Range/Units Serum Glucose 113 H 74-106 mg/dL Microbiology Date/Time Source Procedure Growth Status 10/24/24 13:58 Urine - [place] Urine Culture - Final Complete 10/24/24 01:20 Nose MRSA Screen - Final Complete Problem List/Assessment/Plan Problem List/Assessment/Plan nstemi anomalous coronary anatomy LVOT gradient obesity CHB recommend PPM< pt agrees to plan RN with me at bedside pt will fu with dr prieto tomorrow in [facility] today planning ongoing per rN device check done today Plan discussed with: Patient Date of Service: Oct 27, 2024 Billing Provider: MYA DAVENPORT MD Common Visit Codes: NOT BILLABLE MYA DAVENPORT MD Oct 27, 2024 15:12
[2024-10-27] MEDS: FUROSEMIDE 20 MG/2 ML VIAL IV ONE (15:32)
[2024-10-27] MEDS: POTASSIUM CHL 10 Meq TABLET PO ONE (15:33)
--- NOTE | 2024-10-27 19:18 | DVHDSRES ---
Discharge Summary Date of Admission Resident Creating Document: JAIRO FORMAN RESIDENT Oct 23, 2024 at 20:53 Date of Discharge: Oct 27, 2024 Admitting Diagnosis Sick sinus syndrome Wounds: Left upper chest surgical scar intact / healthy. Labs/Diagnostic Data: Laboratory Results Test 10/27/24 05:13 10/26/24 03:28 10/24/24 13:58 10/24/24 07:08 White Blood Count 6.1 10^3/uL (4.4-10.8) Red Blood Count 5.15 10^6/uL (4.5-5.90) Hemoglobin 15.9 g/dL (13.5-17.5) Hematocrit 47.6 % (41.0-53.0) Mean Corpuscular Volume 92.5 fL (80.0-100.0) Mean Corpuscular Hemoglobin 31.0 pg (28.0-32.0) Mean Corpuscular Hemoglobin Concent 33.5 g/dL (32.0-36.0) Red Cell Distribution Width 13.2 % (11.8-14.3) Platelet Count 198 10^3/uL (140-450) Mean Platelet Volume 8.7 fL (6.9-10.8) Neutrophils (%) (Auto) 70.5 % (37.0-80.0) Lymphocytes (%) (Auto) 19.5 % (10.0-50.0) Monocytes (%) (Auto) 9.5 % (0.0-12.0) Eosinophils (%) (Auto) 0.2 % (0.0-7.0) Basophils (%) (Auto) 0.3 % (0.0-2.0) Neutrophils # (Auto) 4.3 10 ^3/uL (1.6-8.6) Lymphocytes # (Auto) 1.2 10 ^3/uL (0.4-5.4) Monocytes # (Auto) 0.6 10 ^3/uL (0-1.3) Eosinophils # (Auto) 0 10 ^3/uL (0-0.8) Basophils # (Auto) 0 10 ^3/uL (0-0.2) Nucleated Red Blood Cells 0.1 % Free Thyroxine (T4) Calculated 1.24 ng/dL (0.89-1.76) Free Triiodothyronine (T3) pg/mL 2.74 pg/mL (2.3-4.2) Sodium Level 139 mmol/L (136-145) Potassium Level 3.7 mmol/L (3.5-5.1) Chloride Level 107 mmol/L (98-107) Carbon Dioxide Level 23 mmol/L (20-31) Anion Gap 9 (5-15) Blood Urea Nitrogen 6 mg/dL (9-23) Creatinine 0.97 mg/dL (0.700-1.30) Glomerular Filtration Rate Calc 89 mL/min (>90) BUN/Creatinine Ratio 6.2 (10.0-20.0) Serum Glucose 113 mg/dL (74-106) Calcium Level 9.7 mg/dL (8.7-10.4) Magnesium Level 2.3 mg/dL (1.6-2.6) Total Bilirubin 2.3 mg/dL (0.2-1.0) Aspartate Amino Transferase (AST) 25 U/L (13-40) Alanine Aminotransferase (ALT) 29 U/L (7-40) Alkaline Phosphatase 76 U/L (46-116) Total Protein 6.8 g/dL (5.7-8.2) Albumin 4.5 g/dL (3.2-4.8) Urine Color Light-yellow (Yellow) Urine Clarity Clear (Clear) Urine pH 6.5 (5.0-9.0) Urine Specific [place] 1.026 (1.001-1.035) Urine Protein Negative (Negative) Urine Ketones 1+ (Negative) Urine Blood 2+ /uL (Negative) Urine Nitrite Negative (Negative) Urine Bilirubin Negative (Negative) Urine Urobilinogen Normal mg/dL (Negative) Urine Leukocyte Esterase Negative /uL (Negative) Urine RBC 19 /hpf (0 - 3) Urine Microscopic WBC 4 /HPF (0-3) Urine Squamous Epithelial Cells None seen /hpf (<5) Urine Bacteria None seen /hpf (None Seen) Urine Glucose Normal mg/dL (Normal) Hemoglobin A1c 5.7 % A1C (<5.7) Troponin I High Sensitivity 565 ng/L (</=54) B-Type Natriuretic Peptide 160.27 pg/mL (0-100) Triglycerides Level 106 mg/dL (< 150) Cholesterol Level 193 mg/dL (< 200) LDL Cholesterol 141 mg/dL (< 100) HDL Cholesterol 41 mg/dL (40-59) Thyroid Stimulating Hormone (TSH) 0.53 uIU/mL (0.55-4.78) Test 10/24/24 07:04 Prothrombin Time 11.3 sec (9.3-11.8) Prothrombin Time INR 1.07 (0.9-1.15) Activated Partial Thromboplast Time 48.8 SEC (24.5-34.5) Other Laboratory Tests 10/27/24 05:13 10/26/24 03:28 Brief Hx & Hospital Course: ICU Course: A 59-year-old morbidly obese male with a history of hypertension presented to the ED with bradycardia and a worsening productive cough. Initial evaluation revealed symptomatic bradycardia, cardiomegaly on chest x-ray, and elevated troponin levels. Despite normal oxygen saturation and no acute cardiopulmonary disease, he was started on a heparin drip and admitted for further evaluation and management. He denied experiencing chest pain, headache, dizziness, shortness of breath, nausea, vomiting, fever, or chills. Labs: CBC unremarkable, BMP unremarkable, mild elevation of AST ALT in 50s, presenting lactate elevated , with subsided subsequently. elevated troponin 191 and sick sinus syndrome with bradycardia in 30, Status post dual-chamber chamber pacemaker implant Medtronic. Additionally patient was evaluated on coronary angiography which showed extensive CAD. status post placement of pacemaker: IV vancomycin, 14 days of doxycycline 100 b.i.d. for prophylactic pocket infection. H&H stable, repeat CBC tomorrow, transfusion threshold hemoglobin of 8 given known CAD. Medical conditions treated in hospital: # insomnia zolpidem tartrate 5 mg p.o. as needed for sleep. 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 Patent coronary arteries without evidence of severe coronary artery disease. Patient needed dopamine support, with the external transvenous pacing now on implanted dual-chamber pacemaker. # sick sinus syndrome: Baseline junctional bradycardia>>Placement of a temporary transvenous pacemaker>> Status post to chamber pacemaker implant. Avoid beta blockers CCB for mak blocking. Medtronic device evaluation pending tomorrow a.m. # essential hypertension, [place] blood pressure below 140/90, home dose amlodipine 5mg daily to continue. # left ventricular hypertrophy: Likely due to hypertensive cardiomyopathy but HOCM is differential diagnosis. LVEF 60%. # distant history of smoking, but no known COPD # Hyperbilirubinemia: CMP follow up unremarkable so is abdominal exam. # grade 2 obesity with a BMI of 37.3, weight loss counseling done. # ruled out hypothyroidism Medications: Avoid aspirin, anticoagulation, Advil, Motrin or other NSAIDs ID as high chance of bleeding. Continue home 100 b.i.d. of doxycycline for 14 days. Follow up: Follow up with the primary care physician within 1-2 weeks of discharge. Follow up with Dr. Mcmahon/cardiology on 10/29/2024 The plan was discussed with the ICU attending Dr. Schneider. Discharge planning consists of total 39 minutes of extensive planning. Patient and family is agreeable to the plan. Consults/Reason for consult cardiology Operations or Procedures Patient: ZAID KNIGHT Acct: [id number] : 1965 Loc: [facility] Age/Sex: 59/M Room: 020T / Bed: A Attending Phy: JAIRO FORMAN RESIDENT DATE OF SURGERY: 10/26/2024 TECHNIQUE PERFORMED: * Emergency case. * Left subclavian venography. * Management of conscious sedation. * Fluoroscopic guidance and supervision. * Insertion of a needle into the left subclavian ____. * Implantation of a dual chamber permanent pacemaker in left subclavian region (Medtronic, MRI approved). * Interrogation of the device. COMPLICATIONS: None. ASSISTANTS: Assisted by our staff over here is Marshall. Other assistants are Emma Rasmussen Janice ____ today, 10/26/2024. INDICATIONS: The patient has underlying complete heart block, heart rate going down below 30 and he was on temporary pacing wire. Procedure was eventually discussed in a standard manner. DESCRIPTION OF PROCEDURE: Indications, risks, benefits all have been explained and understands very well. The patient was brought to our slab depiler operator. The left subclavian area thoroughly cleaned with soap and Betadine. Under the fluoroscopic guidance, the left subclavian venography was done. It was difficult, but able to get a vein and then, the wire was passed, needle was removed and lidocaine was given. An incision was made 2 inches semi-horizontally. Subcutaneous pocket was made. Bleeding sites all have been cauterized. A 9-Ghanaian venous sheath was passed, dilator was removed, and subsequently now we have put the ventricular lead ____ it was a passive lead. Subsequently, we put a 7-Ghanaian sheath, atrial lead was adjusted in the atrium in standard manner. Subsequently, both atrial and ventricular leads were sutured and subsequently we put a pulse generator, screwed in very well, put under the subcutaneous pocket also. The whole area was cleaned with antibiotic solution. Vancomycin powder also has been applied. We also put antibiotic sleeve also and the whole area was cleaned with antibiotic solution. We put a pulse generator, screwed in very well and put under the subcutaneous pocket. With the help of 2-0 Vicryl, followed by 3-0, followed by 4-0 Monocryl, the whole wound has been very well sutured. Dermabond applied. Tincture of benzoin, Steri-Strip, Telfa, Op-Site applied. The procedure went well. The following parameters available at this time: The patient's right atrium is 1.8 ____. Right ventricular ____ R-wave is 20, impedance is 1024, threshold 0.5 ____. CONCLUSION: Successful implantation of a dual chamber permanent pacemaker without any complication. Procedure went well. Fabrice Mcmahon MD MP/SELINA/SUREKHAI/NIS TID: [id number] RECEIPT: [id number] DICTATED BY:FABRICE MCMAHON MD DICTATED DATE/TIME:10/26/24 1552 ELECTRONICALLY SIGNED BY: ELECTRONICALLY CO-SIGNED BY: EKG Name: ZAID KNIGHT Acct: [id number] [place] [address] ELECTROCARDIOGRAM REPORT PATIENT: ZAID KNIGHT ACCT: [id number] : 1965 LOC: ICU CORA ROOM / BED: [address] [place] [address] AGE / SEX: 59 / M ADM STATUS: ADM IN SERVICE 1150 UNIT: [id number] ORDERING PHYSICIAN: DAVON MARES PROCEDURE(s): EKG - ELECTROCARDIGRAM ORDER NUMBER(s): [id number], ACCESSION NUMBER(s): [id number] [facility] Test Date: 2024-10-24 Test Time: 07:43:07 Pat Name: ZAID KNIGHT Department: Room: [address] [place] [address] Gender: M In Service Educator: : 1965 Requested By: DAVON MARES Order Number: [id number] Reading MD: Measurements Intervals [place] Rate: 37 P: 0 [place]: 0 QRS: 80 QRSD: 92 T: 200 QT: 546 QTc: 428 Interpretive Statements Junctional bradycardia T wave abnormality, consider inferior ischemia Please click the below link to view image of tracing. DICTATED BY: DICTATED DATE/TIME:10/24/24 0743 ELECTRONICALLY SIGNED BY: ELECTRONICALLY CO-SIGNED BY: [place] [id number] Ph: [phone] DIAGNOSTIC IMAGING Diagnostic Imaging Report : [id number] Signed PATIENT: ZAID KNIGHT ACCT: [id number] UNIT: [id number] : 1965 LOC: [facility] ROOM / BED: 020 / A AGE / SEX: 59 / M ADM STATUS: ADM IN SERVICE 0400 ORDERING PHYSICIAN: JAIRO FORMAN PROCEDURE(s): CXRP - CHEST PORTABLE REASON: complication of the pacemaker placement. ORDER NUMBER(s): [id number], ACCESSION NUMBER(s): [id number] EXAM: XR Chest, 1 View CLINICAL INDICATION: complication of the pacemaker placement. TECHNIQUE: Frontal view of the chest. COMPARISON: XY CHEST PORTABLE on DOS: 10/26/24, XY CHEST PORTABLE on DOS: 10/24/24, XY CHEST PORTABLE on DOS: 10/23/24 FINDINGS: LUNGS AND PLEURAL SPACES: See below. HEART: Cardiomegaly with mild congestion. MEDIASTINUM: Unremarkable. Normal mediastinal contour. BONES/JOINTS: Unremarkable. No acute fracture. TUBES, LINES AND DEVICES: Left-sided cardiac pacemaker. OTHER FINDINGS: . None. IMPRESSION: Cardiomegaly with mild congestion. ATED BY: SAMUEL GAMBLE MD DICTATED DATE/TIME: 10/27/24 0719 SIGNED BY: SAMUEL GAMBLE MD SIGNED DATE/TIME: 10/27/24 0719 CC: [place] [id number] Ph: [phone] DIAGNOSTIC IMAGING Diagnostic Imaging Report : [id number] Signed PATIENT: ZAID KNIGHT ACCT: [id number] UNIT: [id number] : 1965 LOC: ICU WEST ROOM / BED: [address] [place] [address] / AGE / SEX: 59 / M ADM STATUS: ADM IN SERVICE 1257 ORDERING PHYSICIAN: FAITH VITAL MD PROCEDURE(s): BLDVT - BiLat Lower DVT REASON: rule out dvt ORDER NUMBER(s): [id number], ACCESSION NUMBER(s): [id number] Bilateral lower extremity venous duplex Clinical History: rule out dvt Comparison: None Technique: Duplex Doppler evaluation of the deep venous systems of both lower extremities from the common femoral veins to the popliteal veins including color Doppler and spectral/pulsed waveform analysis was performed. Findings: RIGHT SIDE: Common femoral vein, GSV junction and proximal femoral vein are not visualized secondary to catheter in-situ. The mid and distal femoral vein demonstrates appropriate compressibility and waveform variability. The deep femoral vein demonstrates appropriate compressibility and waveform variability. The popliteal vein demonstrates appropriate compressibility and waveform variability. There is normal compressibility at the tibioperoneal trunk. LEFT SIDE: The common femoral vein demonstrates appropriate compressibility and waveform variability. There is compressibility/patency of the great saphenous vein at the proximal thigh. The femoral vein demonstrates appropriate compressibility and waveform variability. The deep femoral vein demonstrates appropriate compressibility and waveform variability. The popliteal vein demonstrates appropriate compressibility and waveform variability. There is normal compressibility at the tibioperoneal trunk. Impression: No left DVT. Nonvisualization of the right common femoral vein and proximal femoral vein secondary to catheter in-situ. Of the visualized right lower extremity, no DVT. ATED BY: MART MILLIGAN MD DICTATED DATE/TIME: 10/24/241421 SIGNED BY: MART MILLIGAN MD SIGNED DATE/TIME: 10/24/241421 CC: [place] [id number] Ph: [phone] DIAGNOSTIC IMAGING Diagnostic Imaging Report : [id number] Signed PATIENT: ZAID KNIGHT ACCT: [id number] UNIT: [id number] : 1965 LOC: ER ROOM / BED: / AGE / SEX: 59 / M ADM STATUS: REG ER SERVICE 1354 ORDERING PHYSICIAN: MARSHALL ORELLANA MD PROCEDURE(s): CXRP - CHEST PORTABLE REASON: bradycardic ORDER NUMBER(s): [id number], ACCESSION NUMBER(s): [id number] EXAM: XY CHEST PORTABLE Indication: bradycardic Technique: Single frontal view of the chest was obtained Comparison: None FINDINGS: Lines and Tubes: None Lungs: No focal consolidation. Pleura: No effusion. No pneumothorax. Cardiomediastinal contours: Cardiomegaly. Bones: No acute osseous abnormality. IMPRESSION: Cardiomegaly. No acute cardiopulmonary disease. ATED BY: ALEX LAGOS MD DICTATED DATE/TIME: 10/23/24 1419 SIGNED BY: ALEX LAGOS MD SIGNED DATE/TIME: 10/23/24 141 CC: Condition at Discharge: Fair Final Diagnosis/Problems List pacemaker Discharge Disposition: Home Discharge Instruct/Medications Diet: Cardiac 2g Na,low cholest Activity: No Restrictions, As Tolerated Activity comment: please avoid excessive movement on the left arm. Follow Up/Referral: fu with dr Lani Mcmahon in am of 220 AM Medications: resume home meds script to pharmacy Discharge Statement: "Patient was advised to return to the ER or call 911 if any headaches, dizziness, shortness of breath, chest pain, abdominal pain, bleeding, fevers, or worsening of medical condition. Patient was counseled about treatment plan, medications, possible side effects, patientverbalized understanding. All questions were answered to the best of my ability. This discharge took greater then 30 minutes in planning, reviewing documentation, counseling the patient, and discussing with other team members." ASSESSMENT ASSESSMENT Assessment pacemaker JAIRO FORMAN RESIDENT Oct 27, 2024 19:18
--- NOTE | 2024-10-27 21:43 | DVHPN2 ---
Progress Note - Dictate Date Seen: Oct 27, 2024 Medical Necessity Reason Pt with a Central, PICC or Fol: No Subjective Patient was seen and evaluated in follow up. Patient is s/p emergency left subclavian venography, implantation of a dual chamber permanent pacemaker in left subclavian region (Medtronic, MRI approved). Patient tolerated the procedure well. Patient downgraded to tele bed. Patient is cardiac stable for discharge. Telemetry reviewed. vital signs Vital Sign Date Time Temp Pulse Resp B/P (MAP) Pulse Ox O2 Delivery O2 Flow Rate FiO2 10/27/24 15:55 36.9 10/27/24 15:32 151/102 10/27/24 13:00 78 20 95 10/27/24 08:00 Room Air* 0 21 Total Intake and Output 10/26/24 10/26/24 10/27/24 15:00 23:00 07:00 Intake Total 18.207 ml 450 ml Output Total 800 ml 500 ml Balance 18.207 ml -800 ml -50 ml objective GENERAL: Awake, alert, oriented. Obese. LUNGS: Clear. CARDIOVASCULAR: Heart sounds are good. ABDOMEN: Soft. laboratory and microbiology Laboratory Tests 10/27/24 05:13 10/26/24 03:28 Test 10/26/24 03:28 Range/Units Serum Glucose 113 H 74-106 mg/dL Problem List Bradycardia. Cardiomegaly. Hypertension. Essential (primary) hypertension. NSTEMI (non-ST elevated myocardial infarction). Anomalous coronary anatomy. LVOT gradient. Obesity. CHB. Assessment/Plan Continued all current supportive medical care. Morphine and [place] for pain management. Amlodipine. Lipitor. Additional plan as per the hospital course. Plan discussed with: Patient FABRICE BELL MD Oct 27, 2024 21:43
== END 2024-10-27 17:20 | disposition home or self-care (01) | DRG 242 ==
LOC: EDBD 13:40 → EDUNIT# 13:40 → ER 13:40 → TELE-CENTR 20:53 → OVERFLOW 21:31 → TELE-WESTW 23:53 → ICU WEST 10-24 01:20 → TELE-CENTR 10-26 23:56
PROVIDERS: ADMIT Internal Medicine; ATTEND Internal Medicine
PROC: B211YZZ Fluoroscopy of Multiple Coronary Arteries using Other Contrast (ICD-10-PCS; principal; 2024-10-24)
PROC: 4A023N7 Measurement of Cardiac Sampling and Pressure, Left Heart, Percutaneous Approach (ICD-10-PCS; 2024-10-24)
PROC: 5A1223Z Performance of Cardiac Pacing, Continuous (ICD-10-PCS; 2024-10-24)
PROC: 0JH606Z Insertion of Pacemaker, Dual Chamber into Chest Subcutaneous Tissue and Fascia, Open Approach (ICD-10-PCS; 2024-10-26)
PROC: 02H63JZ Insertion of Pacemaker Lead into Right Atrium, Percutaneous Approach (ICD-10-PCS; 2024-10-26)
PROC: 02HK3JZ Insertion of Pacemaker Lead into Right Ventricle, Percutaneous Approach (ICD-10-PCS; 2024-10-26)
PROC: B517YZZ Fluoroscopy of Left Subclavian Vein using Other Contrast (ICD-10-PCS; 2024-10-26)
DX: I25.10 Atherosclerotic heart disease of native coronary artery without angina pectoris (principal); I21.A1 Myocardial infarction type 2; I44.2 Atrioventricular block, complete; J98.11 Atelectasis; I49.5 Sick sinus syndrome; R00.1 Bradycardia, unspecified; E66.01 Morbid (severe) obesity due to excess calories; R09.02 Hypoxemia; E80.6 Other disorders of bilirubin metabolism; E03.9 Hypothyroidism, unspecified; I10 Essential (primary) hypertension; Z68.37 Body mass index [BMI] 37.0-37.9, adult; Z87.891 Personal history of nicotine dependence; Z82.3 Family history of stroke; Z80.42 Family history of malignant neoplasm of prostate
CPT/HCPCS: 33208; 33210; 36415; 71045; 80053; 80061; 81001; 83036; 83735; 83880; 84439; 84443; 84481; 84484; 85025; 85610; 85730; 86850; 86900; 86901; 87081; 87086; 93005; 93306; 93458; 93970; 96365; 96375; 96376; 97163; 99152; 99291; C1751; C1894; G0378; J2250; J2405; J3490; Q9967

== ENCOUNTER 2025-02-02 14:12 | Emergency (ER) | payer BC ==
[~2025-02-02] VITALS: Ht 180.3 cm; Wt 113.0 kg
[~2025-02-02 14:12] MED LIST changes: +AMLO1TAB22 PO; +DOXY150C6 PO
[2025-02-02 15:49] VITALS: BP 158/74; PULSE 76; RESP 18; TEMP 97.6; O2SAT 98
--- NOTE | 2025-02-02 16:09 | DVH ---
EXAM: CT LS SPINE WO CONTRAST HISTORY: Pain. R/o fracture COMPARISON: None CTDIvol 35 mGy, DLP 1417 mGy*cm. TECHNIQUE: Multiple axial CT images of the spine were obtained using bone algorithm. Axial and carmichael l reformatting was done. Bone and soft tissue windows were reviewed. FINDINGS: No CT evidence of definite acute fracture, spinal dislocation, or significant appearing acu te subluxation is seen. The visualized paraspinal soft tissues are grossly unremarkable. Multilevel degenerative changes of the spine. Moderate central spinal canal stenosis at L3-4. Fusion at the L4-5 level. IMPRESSION: 1. No definite CT evidence of acute fracture or dislocation of the bony lumbar spine. Moderate central spinal canal stenosis of the L3-4 level, 4 mm annular disc bulge at this level.
--- NOTE | 2025-02-02 16:58 | ED.PDOC ---
History of Present Illness HPI Comments 59 year old male was BIBA and has a Hx of chronic back pain & right sided Sciatica associated to the c/c of Right lower back pain. Pt states that he has been experiencing back pain since last night with no alleviating factors at this point in time. Pt notes that he went to use the restroom this morning, and could no longer stand up afterwards because of the pain. Pt also notes of Right sided hip pain that radiates down to his thigh. Denies fever, SOB, chest pain, abdominal pain, nausea, vomiting, diarrhea, headache, dizziness, vision changes, or numbness/tingling of extremities. No other symptoms or modifying factors reported at this time. Patient is alert and oriented x4. Chief Complaint: Back Pain Time Seen by MD: 16:53 Primary Care Provider: NONE Reviewed Notes: Nurses Notes, Medications, Allergies Allergies: Coded Allergies: NO KNOWN ALLERGIES (Unverified , 04/02/10) Home Meds Active Scripts Cyclobenzaprine Hcl (Cyclobenzaprine Hcl) 10 Mg Tab, 10 MG PO QHSP PRN for 10 Days, #10 TAB 0 Refills Prov:AKIKO PIERRE STONECUTTER APPRENTICE HAND 02/02/25 Hydrocodone-Acetaminophen (Hydrocodone Bitartrate/AC 5-325 mg) 1 Tab Tab, 1 TAB PO Q8HP PRN for 4 Days, #12 TAB 0 Refills Prov:AKIKO PIERRE STONECUTTER APPRENTICE HAND 02/02/25 Doxycycline (Monohydrate) (DOXYCYCLINE) 150 Mg Cap, 100 MG PO BID for 14 Days, #28 CAP 0 Refills Prov:SANGITA CANNON RESIDENT 10/27/24 Reported Medications Amlodipine Besylate (Amlodipine Besylate) 5 Mg Tab, 5 MG PO DAILY for 30 Days, MG 10/24/24 [Prilosec] No Conflict Check 04/02/10 Information Source: Patient Mode of Arrival: EMS Severity: Moderate Timing: Hours Duration: Since onset, Hours Prehospital treatment: None Past Medical History PAST MEDICAL HISTORY: HTN Surgical History: Denies all surgeries Social History Smoker: Non-Smoker Alcohol: Denies ETOH Use Drugs: Denies Drug Use Lives In: Home Constitutional: denies: chills, diaphoresis, fatigue, fever, malaise, sweats, weakness, others EENTM: denies: blurred vision, double vision, ear bleeding, ear discharge, ear drainage, ear pain, ear ringing, eye pain, eye redness, hearing loss, mouth pain , mouth swelling, nasal discharge, nose bleeding, nose congestion, nose pain, photophobia, tearing, throat pain, throat swelling, voice changes, others Respiratory: denies: cough, hemoptysis, orthopnea, SOB at rest, shortness of breath, SOB with excertion, stridor, wheezing, others Cardiovascular: denies: chest pain, dizzy spells, diaphoresis, Dyspnea on exertion, edema, irregular heart beat, left arm pain, lightheadedness, palpitations, PND, syncope, others Gastrointestinal: denies: abdomen distended, abdominal pain, blood streaked bowels, constipated, diarrhea, dysphagia, difficulty swallowing, hematemesis, melena, nausea, poor appetite, poor fluid intake, rectal bleeding, rectal pain, vomiting, others Genitourinary: denies: burning, dysuria, flank pain, frequency, hematuria, incontinence, penile discharge, penile sore, pain, testicle pain, testicle swelling, urgency, others Neurological: denies: dizziness, fainting, headache, left sided numbness, left sided weakness, numbness, paresthesia, pre-existing deficit, right sided numbness, right sided weakness, seizure, speech problems, tingling, tremors, weakness, others Musculoskeletal: reports: back pain (right lower back pain); denies: gout, joint pain, joint swelling, muscle pain, muscle stiffness, neck pain, others Integumetry: denies: bruises, change in color, change in hair/nails, dryness, laceration, lesions, lumps, rash, wounds, others Allergic/Immunocompromised: denies: Difficulty Healing, Frequent Infections, Hives, Itching, others Hematologic/Lymphatic: denies: anemia, blood clots, easy bleeding, easy bruising, swollen glands, others Endocrine: denies: excessive hunger, excessive sweating, excessive thirst, excessive urination, flushing, intolerance to cold, intolerance to heat, unexplained weight gain, unexplained weight loss, others Psychiatric: denies: anxiety, bipolar disorder, depression, hopeless, panic disorder, schizophrenia, sleepless, suicidal, others All Other Systems: Reviewed and Negative Physical Exam General Appearance: No Apparent Distress, Normal, Obese HEENT: Normal ENT Inspection, Pharynx Normal, TMs Normal Neck: Full Range of Motion, Non-Tender, Normal, Normal Inspection Respiratory: Chest Non-Tender, Lungs Clear, No Accessory Muscle Use, No Respiratory Distress, Normal Breath Sounds Cardiovascular: No Murmur, No Gallop, Regular Rate/Rhythm Breast Exam: Deferred Gastrointestinal: No Organomegaly, Non Tender, No Pulsatile Mass, Normal Bowel Sounds, Soft Genitalia: Deferred Pelvic: Deferred Rectal: Deferred Extremities: No calf tenderness, Normal capillary refill, Normal inspection, Normal range of motion, Non-tender, No pedal edema Musculoskeletal : Location: Right Extremity Location: Back (normal on inspection. No soft tissue swelling, ecchymosis, open wounds. No midline tenderness. No bony step-offs on palpation. Full forward flexion-extension and lateral movements. Neurovascular sensation intact) Apperance: Normal Neurologic: Alert, No Motor Deficits, Normal Mood Cerebellar Function: Normal Reflexes: Normal Skin: Dry, Normal Color, Warm Lymphatic: No Adenopathy Was a procedure done? Was a procedure done?: No Differential Dx Considerations may include: Strain, sciatica, fracture, nephrolithiasis X-Ray, Labs, Meds, VS Vital Signs Date Time Temp Pulse Resp B/P (MAP) Pulse Ox O2 Delivery O2 Flow Rate FiO2 02/02/25 15:49 97.6 76 18 158/74 (102) 98 97.6 02/02/25 15:49 Room Air* 0 21 02/02/25 14:26 97.8 84 16 156/82 (106) 96 97.8 Current Medications Medications (Trade) Dose Ordered Sig/Reagan Route Start Time Stop Time Status Last Admin Acetaminophen/ Hydrocodone Bitart (Kopperl 7.5/325MG Tab) 1 tab ONCE ONCE PO 02/02/25 17:00 02/02/25 17:01 DC 02/02/25 17:21 Ketorolac Tromethamine (Toradol Injection) 30 mg ONCE ONCE IM 02/02/25 17:00 02/02/25 17:01 DC 02/02/25 17:22 Methylprednisolone Sodium Succinate (Solu Medrol) 125 mg ONCE ONCE IM 02/02/25 17:00 02/02/25 17:01 DC 02/02/25 17:23 PATIENT: ZAID KNIGHT ACCT: [id number] UNIT: [id number] : 1965 LOC: ER ROOM / BED: / AGE / SEX: 59 / M ADM STATUS: REG ER SERVICE [id number] ORDERING PHYSICIAN: AKIKO PIERRE NP PROCEDURE(s): LS2CT - LS SPINE WO CONTRAST REASON: Pain. R/o fracture ORDER NUMBER(s): [id number], ACCESSION NUMBER(s): [id number] EXAM: CT LS SPINE WO CONTRAST HISTORY: Pain. R/o fracture COMPARISON: None CTDIvol 35 mGy, DLP 1417 mGy*cm. TECHNIQUE: Multiple axial CT images of the spine were obtained using bone algorithm. Axial and coronal reformatting was done. Bone and soft tissue windows were reviewed. FINDINGS: No CT evidence of definite acute fracture, spinal dislocation, or significant appearing acute subluxation is seen. The visualized paraspinal soft tissues are grossly unremarkable. Multilevel degenerative changes of the spine. Moderate central spinal canal stenosis at L3-4. Fusionat the L4-5 level. IMPRESSION: 1. No definite CT evidence of acute fracture or dislocation of the bony lumbar spine. Moderate central spinal canal stenosis of the L3-4 level, 4 mm annular disc bulge at this level. X-Ray, Labs, Meds, VS Comment 59 year old male was BIBA and has a Hx of chronic back pain & Sciatica associated to the c/c of Right lower back pain. I considered cauda equina, spinal cord compression, vertebral malignancy/mets, acute spinal fracture, vertebral osteomyelitis, epidural abscess, infected or obstructed kidney stone Imaging showed: Moderate central spinal canal stenosis of the L3-4 level, 4 mm annular disc bulge at this level. The patient received pain medication with no adverse reaction Disposition: Discharge. Strict return precautions discussed with the patient with full understanding. Supportive care advised (rest, ice, heat, NSAIDs, stretching exercises) Massage muscles with cold pack or ice for 20 minutes 4 times per day. Usually most useful if there is swelling during the first 48 hours Heating pad on the most painful area for 20 minutes to relieve muscle spasm Sleep and the most comfortable sleeping position (usually on the side with knees bent) Light stretching, no strenuous activity, avoid frequent bending, avoid carrying heavy objects Discussed possible benefits of yoga and acupuncture Return precautions discussed including Inability to walk/bear weight Paresthesia/weakness/leg pain Fecal/urinary incontinence Any worsening symptoms Additional MDM Review of External, Non-ED records: External records reviewed. Discussion with independent historian (EMS, family) history obtained from the patient at bedside Chronic conditions affecting care: None Social determinants of health affecting care: None Consideration of admission (observation or admission): I considered escalation of care to admission for this patient, however given the reassuring workup, the patient is safe for outpatient management. Time of 1ST Reevaluation: 17:27 Reevaluation 1ST: Unchanged Patient Education/Counseling: Diagnosis, Treatment Family Education/Counseling: No Family Present Departure 1 Departure Time of Disposition: 18:00 Impression: Primary Impression: Central stenosis of spinal canal Additional Impression: Back pain Qualified Codes: M54.41 - Lumbago with sciatica, right side Disposition: HOME / SELF CARE / HOMELESS Condition: Stable e-Prescriptions Cyclobenzaprine Hcl (Cyclobenzaprine Hcl) 10 Mg Tab 10 MG PO QHSP PRN for 10 Days, #10 TAB 0 Refills Prov: AKIKO PIERRE NP 02/02/25 Hydrocodone-Acetaminophen (Hydrocodone Bitartrate/AC 5-325 mg) 1 Tab Tab 1 TAB PO Q8HP PRN for 4 Days, #12 TAB 0 Refills Prov: AKIKO PIERRE NP 02/02/25 Critical Care Note Critical Care Time?: No Stability Stability form required: No Heart Score Heart Score: Heart Score Response (Comments) Value History N/A 0 EKG N/A 0 Age N/A 0 Risk Factors N/A 0 Troponin N/A 0 Total 0 I personally scribed for AKIKO PIERRE NP ([email or web address]) on 02/02/25 at 16:58. Electronically submitted by Robert Ceballos ([email or web address]). I personally scribed for AKIKO PIERRE NP ([email or web address]) on 02/02/25 at 16:59. Electronically submitted by Robert Ceballos ([email or web address]). AKIKO PIERRE STONECUTTER APPRENTICE HAND February 02, 2025 16:58
[2025-02-02] MEDS ORDERED: HYDR-4902 PO (17:10)
[2025-02-02] MEDS ORDERED: CYCL-839 PO (17:10)
[2025-02-02] MEDS: HYDROcodone-ACET 7.5/325MG TAB PO ONE (17:21)
[2025-02-02] MEDS: KETOROLAC TROMETH 30 MG/ML 1ML VIAL IM ONE (17:22)
[2025-02-02] MEDS: methylPREDNISolone SOD SUCC 125 MG/2 ML VL IM ONE (17:23)
== END 2025-02-02 17:59 | disposition home or self-care (01) ==
LOC: EDBD 14:12 → ER 14:17
DX: M48.061 Spinal stenosis, lumbar region without neurogenic claudication (principal); I10 Essential (primary) hypertension; G89.29 Other chronic pain; M54.9 Dorsalgia, unspecified; Z79.899 Other long term (current) drug therapy
CPT/HCPCS: 72131; 96372; 99285; J1885; J2919

== ENCOUNTER 2025-08-24 10:59 | Inpatient (IN) | payer BC ==
[~2025-08-24] VITALS: Ht 177.8 cm; Wt 112.0 kg
[~2025-08-24 10:59] MED LIST changes: +CYCL-839 PO; +HYDR-4902 PO
--- NOTE | 2025-08-24 11:22 | ECG ---
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
--- NOTE | 2025-08-24 11:28 | ED.PDOC ---
History of Present Illness HPI Comments This is a 60-year-old male who comes in with chief complaint of shortness for breath this morning. The patient states that the symptoms started approximately 1-1/2 hours ago. He states that his hand started to cramp as well. He went back in the house and then started experiencing some palpitations. He denies any chest pain at this time. 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 The patient was able to ambulate into the emergency department's without any difficulty. Chief Complaint: Shortness of Breath Time Seen by MD: 11:09 Primary Care Provider: NONE Reviewed Notes: Nurses Notes, Medications, Allergies (No allergies to medications) Allergies: Coded Allergies: NO KNOWN ALLERGIES (Unverified , 04/02/10) Home Meds Active Scripts Cyclobenzaprine Hcl (Cyclobenzaprine Hcl) 10 Mg Tab, 10 MG PO QHSP PRN for 10 Days, #10 TAB 0 Refills Prov:AKIKO PIERRE GUINEA PIG BREEDER 02/02/25 Hydrocodone-Acetaminophen (Hydrocodone Bitartrate/AC 5-325 mg) 1 Tab Tab, 1 TAB PO Q8HP PRN for 4 Days, #12 TAB 0 Refills Prov:AKIKO PIERRE GUINEA PIG BREEDER 02/02/25 Doxycycline (Monohydrate) (DOXYCYCLINE) 150 Mg Cap, 100 MG PO BID for 14 Days, #28 CAP 0 Refills Prov:SANGITA CANNON RESIDENT 10/27/24 Reported Medications Amlodipine Besylate (Amlodipine Besylate) 5 Mg Tab, 5 MG PO DAILY for 30 Days, MG 10/24/24 [Prilosec] No Conflict Check 04/02/10 Information Source: Patient, Emergency Med Personnel Mode of Arrival: Ambulatory Severity: Moderate Timing: Hours Duration: Since onset Prehospital treatment: None Associated signs and symptoms Associated palpitations with the shortness for breath and hand cramping Past Medical History PAST MEDICAL HISTORY: HTN Surgical History: Pacemaker Family History Family History: Family hx of DM Social History Smoker: Non-Smoker Alcohol: Occasionally Drugs: Denies Drug Use Lives In: Home Constitutional: denies: chills, diaphoresis, fatigue, fever, malaise, sweats, weakness, others EENTM: denies: blurred vision, double vision, ear bleeding, ear discharge, ear drainage, ear pain, ear ringing, eye pain, eye redness, hearing loss, mouth pain, mouth swelling, nasal discharge, nose bleeding, nose congestion, nose pain, photophobia, tearing, throat pain, throat swelling, voice changes, others Respiratory: reports: shortness of breath; denies: cough, hemoptysis, orthopn ea, SOB at rest, SOB with excertion, stridor, wheezing, others Cardiovascular: reports: palpitations; denies: chest pain, dizzy spells, diaphoresis, Dyspnea on exertion, edema, irregular heart beat, left arm pain, lightheadedness, PND, syncope, others Gastrointestinal: denies: abdomen distended, abdominal pain, blood streaked bowels, constipated, diarrhea, dysphagia, difficulty swallowing, hematemesis, melena, nausea, poor appetite, poor fluid intake, rectal bleeding, rectal pain, vomiting, others Genitourinary: denies: burning, dysuria, flank pain, frequency, hematuria, incontinence, penile discharge, penile sore, pain, testicle pain, testicle swelling, urgency, others Neurological: denies: dizziness, fainting, headache, left sided numbness, left sided weakness, numbness, paresthesia, pre-existing deficit, right sided numbness, right sided weakness, seizure, speech problems, tingling, tremors, weakness, others Musculoskeletal: denies: back pain, gout, joint pain, joint swelling, muscle pain, muscle stiffness, neck pain, others Integumetry: denies: bruises, change in color, change in hair/nails, dryness, laceration, lesions, lumps, rash, wounds, others Allergic/Immunocompromised: denies: Difficulty Healing, Frequent Infections, Hives, Itching, others Hematologic/Lymphatic: denies: anemia, blood clots, easy bleeding, easy bruising, swollen glands, others Endocrine: denies: excessive hunger, excessive sweating, excessive thirst, excessive urination, flushing, intolerance to cold, intolerance to heat, unexplained weight gain, unexplained weight loss, others Psychiatric: denies: anxiety, bipolar disorder, depression, hopeless, panic disorder, schizophrenia, sleepless, suicidal, others Physical Exam General Appearance: Moderate Distress HEENT: Normal ENT Inspection, Pharynx Normal, TMs Normal Neck: Full Range of Motion, Non-Tender, Normal, Normal Inspection Respiratory: Chest Non-Tender, Lungs Clear, No Accessory Muscle Use, No Respir atory Distress, Normal Breath Sounds Cardiovascular: No Edema, No JVD, No Murmur, No Gallop, Regular Rate/Rhythm, Other (Pacemaker in greatest) Breast Exam: Deferred Gastrointestinal: No Organomegaly, Non Tender, No Pulsatile Mass, Normal Bowel Sounds, Soft Genitalia: Deferred Pelvic: Deferred Rectal: Deferred Extremities: No calf tenderness, Normal capillary refill, Normal inspection, Normal range of motion, Non-tender, No pedal edema Musculoskeletal : Apperance: Normal Neurologic: Alert, transfer car operator II-XII nml as Tested, No Motor Deficits, Normal Affect, Normal Mood, No Sensory Deficits Cerebellar Function: Normal Reflexes: Normal Skin: Dry, Normal Color, Warm Lymphatic: No Adenopathy Was a procedure done? Was a procedure done?: No EKG EKG : Pulse Rate (adult): 64 [place]: Normal Cardiac Rhythm: Paced Block: None Differential Dx Considerations may include: COPD exacerbation, CHF, AK, PE X-Ray, Labs, Meds, VS Vital Signs Date Time Temp Pulse Resp B/P (MAP) Pulse Ox O2 Delivery O2 Flow Rate FiO2 08/24/25 12:46 64 18 96 Room Air* 0 21 08/24/25 12:46 97.6 64 18 138/94 (109) 96 97.6 08/24/25 12:33 61 08/24/25 12:00 97.7 61 16 130/80 (97) 98 97.7 08/24/25 12:00 61 16 98 Room Air* 0 21 08/24/25 11:28 64 08/24/25 11:20 64 08/24/25 11:01 97.8 82 16 147/73 98 97.8 Lab Test 08/24/25 12:36 08/24/25 11:26 Range/Units Prothrombin Time Pending Prothrombin Time INR Pending Activated Partial Thromboplast Time Pending Troponin I High Sensitivity Pending 448 *H </=54 ng/L White Blood Count 3.6 L 4.4-10.8 10^3/uL Red Blood Count 5.13 4.5-5.90 10^6/uL Hemoglobin 15.9 13.5-17.5 g/dL Hematocrit 46.8 41.0-53.0 % Mean Corpuscular Volume 91.3 80.0-100.0 fL Mean Corpuscular Hemoglobin 31.0 28.0-32.0 pg Mean Corpuscular Hemoglobin Concent 34.0 32.0-36.0 g/dL Red Cell Distribution Width 13.2 11.8-14.3 % Platelet Count 249 140-450 10^3/uL Mean Platelet Volume 8.0 6.9-10.8 fL Neutrophils (%) (Auto) 44.2 37.0-80.0 % Lymphocytes (%) (Auto) 42.9 10.0-50.0 % Monocytes (%) (Auto) 7.8 0.0-12.0 % Eosinophils (%) (Auto) 2.8 0.0-7.0 % Basophils (%) (Auto) 2.3 H 0.0-2.0 % Neutrophils # (Auto) 1.6 1.6-8.6 10 ^3/uL Lymphocytes # (Auto) 1.6 0.4-5.4 10 ^3/uL Monocytes # (Auto) 0.3 0-1.3 10 ^3/uL Eosinophils # (Auto) 0.1 0-0.8 10 ^3/uL Basophils # (Auto) 0.1 0-0.2 10 ^3/uL Nucleated Red Blood Cells 0.1 % Sodium Level 141 136-145 mmol/L Potassium Level 3.9 3.5-5.1 mmol/L Chloride Level 106 98-107 mmol/L Carbon Dioxide Level 26 20-31 mmol/L Anion Gap 9 5-15 Blood Urea Nitrogen 8 L 9-23 mg/dL Creatinine 1.33 H 0.700-1.30 mg/dL Glomerular Filtration Rate Calc 60 >90 mL/min BUN/Creatinine Ratio 6.0 L 10.0-20.0 Serum Glucose 130 H 74-106 mg/dL Calcium Level 9.7 8.7-10.4 mg/dL B-Type Natriuretic Peptide 41.98 0-100 pg/mL Current Medications Medications (Trade) Dose Ordered Sig/Reagan Route Start Time Stop Time Status Last Admin Aspirin 162 mg ONCE ONCE PO 08/24/25 11:30 08/24/25 11:31 DC 08/24/25 11:58 Heparin Sodium (Porcine) 4,000 units ONCE ONCE IV 08/24/25 12:00 08/24/25 12:01 DC 08/24/25 12:33 Heparin Sodium/ Dextrose 250 ml @ 10 mls/hr Q24H IV 08/24/25 12:00 08/24/25 12:56 IV Hep-Lock has been established The patient's 1st troponin level came back at 4:48 a.m. The CBC and chemistry panel are within normal limits The patient's EKG shows a paced rhythm so the patient was started on heparin 4000 units IV and then started on a heparin drip The patient was also given aspirin here in the emergency department's We did contact the hydrocrane operator and they will come and evaluate the patient as well. We discussed the findings with the patient and they are in agreement with the management. The patient is admitted Images Reviewed?: Images reviewed and evaluated by me Time of 1ST Reevaluation: 11:27 Reevaluation 1ST: Unchanged Patient Education/Counseling: Diagnosis, Treatment, Prognosis Family Education/Counseling: No Family Present SEPSIS Sepsis Screen Date sepsis recognized/suspect: Aug 24, 2025 Time Sepsis recognized/suspect: 9 Recent Procedure: No On Antibiotic Therapy: No Respiratory Rate >20: No Heart Rate >90: No Temp<36 C (96.8 F) or >38.3 C: No SBP <90 or MAP <65 mmHG: No New Acute Mental Status Change: No Is the patient on CPAP, BIPAP,: No Physician Orders Chest Two Views Routine (08/24/25 11:19) Heplock Iv (08/24/25 11:19) Contact Center Manager (08/24/25 11:19) Blood Pressure (08/24/25 11:19) Pulse Oximetry (08/24/25 11:19) Troponin-I Hs (08/24/25 12:19) Troponin-I Hs (08/24/25 14:19) Electrocardigram (08/24/25 12:19) Electrocardigram (08/24/25 14:19) Heparin Drip/D5w 100units/Ml (08/24/25 12:00) Echo 2d Mode Cardiac Dop (08/24/25 11:55) * Cardiology Consult (08/24/25 11:57) Aspirin Chewable Tablet (08/25/25 10:00) PTPTT (08/24/25 12:26) Complete Blood Count (08/25/25 04:00) Vital Signs Date Time Temp Pulse Resp B/P (MAP) Pulse Ox O2 Delivery O2 Flow Rate FiO2 08/24/25 12:46 64 18 96 Room Air* 0 21 08/24/25 12:46 97.6 64 18 138/94 (109) 96 97.6 08/24/25 12:33 61 08/24/25 12:00 97.7 61 16 130/80 (97) 98 97.7 08/24/25 12:00 61 16 98 Room Air* 0 21 08/24/25 11:28 64 08/24/25 11:20 64 08/24/25 11:01 97.8 82 16 147/73 98 97.8 Laboratory Tests Test 08/24/25 11:26 White Blood Count 3.6 10^3/uL (4.4-10.8) L Medications Medications Dose Ordered Sig/Reagan Route Start Time Stop Time Status Last Admin Dose Admin Aspirin 162 mg ONCE ONCE PO 08/24/25 11:30 08/24/25 11:31 DC 08/24/25 11:58 Heparin Sodium (Porcine) 4,000 units ONCE ONCE IV 08/24/25 12:00 08/24/25 12:01 DC 08/24/25 12:33 Heparin Sodium/ Dextrose 250 ml @ 10 mls/hr Q24H IV 08/24/25 12:00 08/24/25 12:56 Departure 1 Departure Time of Disposition: 13:23 Impression: Primary Impression: Non-STEMI (non-ST elevated myocardial infarction) Disposition: 09 ADMITTED INPATIENT Admit to: [facility] Condition: Guarded Critical Care Note Critical Care Time?: Yes (45 min-critical care time only) Stability Stability form required: Yes Unstable for transfer: ICU, CCU, PCU, [facility] (Intensive VS monitoring), ED Physician Assesment (Clinical assesment) Heart Score Heart Score: Heart Score Response (Comments) Value History Moderate Suspicious 1 EKG Normal 0 Age 45-64 1 Risk Factors >3 or Hx ASHD 2 Troponin >3 x's Normal limit 2 Total 6 DEL VITALE MD Aug 24, 2025 11:28
[2025-08-24 11:37] LABS: Hematocrit 46.8 % (41.0-53.0); Hemoglobin 15.9 g/dL (13.5-17.5); Mean Corpuscular Hemoglobin 31.0 pg (28.0-32.0); Mean Corpuscular Volume 91.3 fL (80.0-100.0); Nucleated Red Blood Cells % 0.1 %
[2025-08-24 11:43] LABS: Chloride 106 mmol/L (98-107); Potassium 3.9 mmol/L (3.5-5.1); Sodium 141 mmol/L (136-145)
[2025-08-24 11:44] LABS: Anion Gap 9 (5-15); Carbon Dioxide 26 mmol/L (20-31)
[2025-08-24 11:45] LABS: Calcium 9.7 mg/dL (8.7-10.4)
[2025-08-24 11:50] LABS: BUN/Creatinine Ratio 6.0 (10.0-20.0); Blood Urea Nitrogen 8 mg/dL (9-23); Glucose 130 mg/dL (74-106)
[2025-08-24 12:00] VITALS: PULSE 61; RESP 16; O2SAT 98
--- NOTE | 2025-08-24 12:03 | DVH ---
CHEST RADIOGRAPH INDICATION: Shortness a breath and palpitations TECHNIQUE: Frontal and lateral view of the chest was obtained COMPARISON: None FINDINGS: Lines and Tubes: Left chest wall pacemaker Lungs: Clear Pleura: No effusion. No pneumothorax. Cardiomediastinal contours: Unremarkable Bones: Unremarkable IMPRESSION: No evidence of acute disease.
[2025-08-24] MEDS: HEPARIN SODIUM (PORCINE) 5000 UNITS/ML 1ML VIAL IV ONE (12:33)
[2025-08-24 12:46] VITALS: PULSE 64; RESP 18; O2SAT 96
[2025-08-24] MEDS: HEPARIN DRIP/D5W 100UNITS/ML 250 ML IV SCH (12:56)
[2025-08-24] MEDS ORDERED: AMLO1TAB23 PO (13:28)
[2025-08-24] MEDS ORDERED: RIV20T PO (13:28)
[2025-08-24] MEDS ORDERED: METO-159 PO (13:28)
[2025-08-24] MEDS ORDERED: NITROGLYCERIN 0.4 MG SL TAB SL PRN (13:30)
[2025-08-24] MEDS ORDERED: ONDANSETRON HCL 4 MG/2 ML VIAL IV PRN (13:30)
[2025-08-24] MEDS ORDERED: DOCUSATE SOD 100 MG CAP PO PRN (13:30)
[2025-08-24] MEDS ORDERED: ACETAMINOPHEN 325 MG TAB PO PRN (13:30)
[2025-08-24] MEDS ORDERED: HYDROcodone-ACET 5/325MG TAB PO PRN (13:30)
[2025-08-24 13:40] LABS: INR 1.32 (0.9-1.15); Partial Thromboplastin Time 32.9 SEC (24.5-34.5); Prothrombin Time 13.6 sec (9.3-11.8)
[2025-08-24] MEDS ORDERED: MORPHINE SULFATE 4 MG/ML SYR/VIAL IV PRN (13:45)
--- NOTE | 2025-08-24 13:48 | CONS ---
Pharmacy Clinical Information: HEPARIN DRIP, ACS PROTOCOL @1126 INITIAL APTT 32.9 4000 UNIT HEPARIN BOLUS DOSE 1000 UNITS/HR INITIAL HEPARIN INFUSION NEXT APTT DRAW SCHEDULED @1900 PER RX PROTOCOL CONFIRMED AND READ BACK WITH RN LAMAR LOMELI [facility] RESIDENT Aug 24, 2025 13:48
--- NOTE | 2025-08-24 14:11 | DVHHP2 ---
History of Present Illness Reason for Visit: dizziness, palpitations History of Present Illness Eran Ruiz is a 60-year-old male with past medical history of hypertension, atrial fibrillation, and bradycardia, who came to the hospital for shortness of breath, palpitations, and becoming dizzy. Patient states he was getting ready to get in his car and leave when he noticed his left hand began cramping, and he was having a hard time holding his keys. He also started feeling palpitations, dizzy, and became short of breath. He went in the house, contemplated calling EMS, and rested for about 10 minutes. His symptoms were improving so he drove himself to the hospital. Patient was admitted here in October of 2024 for bradycardia where he had an left heart cath completed and a pacemaker placed. He has since been following with cardiology. He was referred to [facility] for the watchman procedure. He had a scheduled appointment with [facility] today that he missed due to coming to the hospital. Cardiovascular: AFIB, HTN, Other (bradycardia, pacemaker October 2024) Past Surgical History: Other (pacemaker October 2024) Smoke: No ALCOHOL: occassional Drugs: None Lives: with Family Domestic Violence: Neg Review of Systems Constitutional: No: Fever, Chills, Sweats, Weakness, Malaise, Other Eyes: No: Pain, Vision change, Conjunctivae inflammation, Eyelid inflammation, Other, Redness ENT: No: Ear pain, Ear discharge, Nose pain, Nose discharge, Nose congestion, Mouth pain, Mouth swelling, Throat pain, Throat swelling, Other Respiratory: Shortness of breath; No: Cough, Dry, SOB with excertion, Wheezing, Hemoptysis, Pleuritic Pain, Sputum, Wheezing, Other Cardiovascular: Palpitations; No: Chest Pain, Orthopnea, Paroxysmal Noc. Dyspnea, Edema, Lt Headedness, Other Gastrointestinal: No: Nausea, Vomiting, Abdominal Pain, Diarrhea, Constipation, Melena, Hematochezia, Other Genitourinary: No Dysuria, No Frequency, No Incontinence, No Hematuria, No Retention, No Other Musculoskeletal: No: other, neck pain, shoulder pain, arm pain, back pain, hand pain, leg pain, foot pain Skin: No: Rash, Lesions, Jaundice, Bruising, Other Neurological: Other (dizzy, hand cramping); No: Weakness, Numbness, Incoordination, Change in speech, Confusion, Seizures Allergies: Coded Allergies: NO KNOWN ALLERGIES (Unverified , 04/02/10) Medications Current Medications Medications Dose Ordered Sig/Reagan Route Start Time Stop Time Status Last Admin Dose Admin Aspirin 81 mg DAILY PO 08/25/25 10:00 Heparin Sodium/ Dextrose 250 ml @ 10 mls/hr Q24H IV 08/24/25 12:00 08/24/25 12:56 10 MLS/HR Acetaminophen/ Hydrocodone Bitart 1 tab Q4HP PRN PO 08/24/25 13:30 Ondansetron HCl 4 mg Q4HP PRN IV 08/24/25 13:30 Docusate Sodium 100 mg BIDPRN PRN PO 08/24/25 13:30 Acetaminophen 650 mg Q6HP PRN PO 08/24/25 13:30 Nitroglycerin 0.4 mg Q5MINP PRN SL 08/24/25 13:30 Morphine Sulfate 2 mg Q30M PRN IV 08/24/25 13:30 UNV Exam Vital Signs Vital Signs Date Time Temp Pulse Resp B/P (MAP) Pulse Ox O2 Delivery O2 Flow Rate FiO2 08/24/25 12:46 64 18 96 Room Air* 0 21 08/24/25 12:46 97.6 138/94 (109) 97.6 General Appearance: Alert, Oriented X3, Cooperative HEENT: Atraumatic, PERRLA, Mucous membr. moist/pink Respiratory: Clear to auscultation, Normal air movement Cardiovascular: Regular rate, Normal S1, Normal S2, Other (SR-paced) Abdominal: Normal bowel sounds, Soft, No tenderness Extremities: No clubbing, No cyanosis, No edema, Normal pulses Skin: No rashes, No breakdown, No significant lesion Neuro: Normal gait, Normal speech, Strength at 5/5 X4 ext Psych/Mental Status: Mental status NL, Mood NL Labs/Xrays Labs Test 08/24/25 12:36 08/24/25 11:26 Range/Units Troponin I High Sensitivity 398 *H </=54 ng/L White Blood Count 3.6 L 4.4-10.8 10^3/uL Red Blood Count 5.13 4.5-5.90 10^6/uL Hemoglobin 15.9 13.5-17.5 g/dL Hematocrit 46.8 41.0-53.0 % Mean Corpuscular Volume 91.3 80.0-100.0 fL Mean Corpuscular Hemoglobin 31.0 28.0-32.0 pg Mean Corpuscular Hemoglobin Concent 34.0 32.0-36.0 g/dL Red Cell Distribution Width 13.2 11.8-14.3 % Platelet Count 249 140-450 10^3/uL Mean Platelet Volume 8.0 6.9-10.8 fL Neutrophils (%) (Auto) 44.2 37.0-80.0 % Lymphocytes (%) (Auto) 42.9 10.0-50.0 % Monocytes (%) (Auto) 7.8 0.0-12.0 % Eosinophils (%) (Auto) 2.8 0.0-7.0 % Basophils (%) (Auto) 2.3 H 0.0-2.0 % Neutrophils # (Auto) 1.6 1.6-8.6 10 ^3/uL Lymphocytes # (Auto) 1.6 0.4-5.4 10 ^3/uL Monocytes # (Auto) 0.3 0-1.3 10 ^3/uL Eosinophils # (Auto) 0.1 0-0.8 10 ^3/uL Basophils # (Auto) 0.1 0-0.2 10 ^3/uL Nucleated Red Blood Cells 0.1 % Sodium Level 141 136-145 mmol/L Potassium Level 3.9 3.5-5.1 mmol/L Chloride Level 106 98-107 mmol/L Carbon Dioxide Level 26 20-31 mmol/L Anion Gap 9 5-15 Blood Urea Nitrogen 8 L 9-23 mg/dL Creatinine 1.33 H 0.700-1.30 mg/dL Glomerular Filtration Rate Calc 60 >90 mL/min BUN/Creatinine Ratio 6.0 L 10.0-20.0 Serum Glucose 130 H 74-106 mg/dL Calcium Level 9.7 8.7-10.4 mg/dL B-Type Natriuretic Peptide 41.98 0-100 pg/mL CHEST RADIOGRAPH FINDINGS: Lines and Tubes: Left chest wall pacemaker Lungs: Clear Pleura: No effusion. No pneumothorax. Cardiomediastinal contours: Unremarkable Bones: Unremarkable IMPRESSION: No evidence of acute disease. SEPSIS Sepsis Screen Date sepsis recognized/suspect: Aug 24, 2025 Time Sepsis recognized/suspect: 1215 Recent Procedure: No On Antibiotic Therapy: No Respiratory Rate >20: No Heart Rate >90: No Temp<36 C (96.8 F) or >38.3 C: No SBP <90 or MAP <65 mmHG: No New Acute Mental Status Change: No Is the patient on CPAP, BIPAP,: No Physician Orders Chest Two Views Routine (08/24/25 11:19) Heplock Iv (08/24/25 11:19) Clinical Psychology Professor (08/24/25 11:19) Blood Pressure (08/24/25 11:19) Pulse Oximetry (08/24/25 11:19) Troponin-I Hs (08/24/25 14:19) Electrocardigram (08/24/25 12:19) Electrocardigram (08/24/25 14:19) Heparin Drip/D5w 100units/Ml (08/24/25 12:00) Echo 2d Mode Cardiac Dop (08/24/25 11:55) Aspirin Chewable Tablet (08/25/25 10:00) PTPTT (08/24/25 12:26) Complete Blood Count (08/25/25 04:00) Admit (08/24/25 13:21) Code Status (08/24/25 13:21) 2 Gm Sodium Diet (08/24/25 Lunch) Hydrocodone-Acet 5/325mg Tab ([place] /32 (08/24/25 13:30) Ondansetron Hcl (Zofran) (08/24/25 13:30) Docusate Sodium Capsule (Colace Capsule) (08/24/25 13:30) Complete Blood Count (08/25/25 04:00) Comprehensive Metabolic Panel (08/25/25 04:00) Condition: Serious (08/24/25 13:21) Acetaminophen Tablet (Tylenol Tablet) (08/24/25 13:30) Nitroglycerin Sublingual (Ntrostat Subli (08/24/25 13:30) Morphine Sulfate Injection (08/24/25 13:30) Stat Ekg For Chest Pain (08/24/25 13:21) Notify Md Of Changes From Base (08/24/25 13:21) Shake Cutter For 24 Hours (08/24/25 13:21) Emergency Dysrhythmia Protocol (08/24/25 13:21) Rhythm Strips Once Every Shift (08/24/25 13:21) Oxygen By Nasal Cannula (08/24/25 13:21) * Cardiology Consult (08/24/25 13:21) Rivaroxaban Tablet (Xarelto Tablet) (08/25/25 10:00) (Nf) Amlodipine Besylate (08/25/25 10:00) (Nf) Metoprolol Tartrate (08/25/25 10:00) Vital Signs Date Time Temp Pulse Resp B/P (MAP) Pulse Ox O2 Delivery O2 Flow Rate FiO2 08/24/25 12:46 64 18 96 Room Air* 0 21 08/24/25 12:46 97.6 64 18 138/94 (109) 96 97.6 08/24/25 12:33 61 08/24/25 12:00 97.7 61 16 130/80 (97) 98 97.7 08/24/25 12:00 61 16 98 Room Air* 0 21 08/24/25 11:28 64 08/24/25 11:20 64 08/24/25 11:01 97.8 82 16 147/73 98 97.8 Laboratory Tests Test 08/24/25 11:26 White Blood Count 3.6 10^3/uL (4.4-10.8) L Medications Medications Dose Ordered Sig/Reagan Route Start Time Stop Time Status Last Admin Dose Admin Aspirin 162 mg ONCE ONCE PO 08/24/25 11:30 08/24/25 11:31 DC 08/24/25 11:58 162 MG Heparin Sodium (Porcine) 4,000 units ONCE ONCE IV 08/24/25 12:00 08/24/25 12:01 DC 08/24/25 12:33 4,000 UNITS Heparin Sodium/ Dextrose 250 ml @ 10 mls/hr Q24H IV 08/24/25 12:00 08/24/25 12:56 10 MLS/HR Assessment/Plan Assessment/Plan Assessment: Elevated troponin, Possible NSTEMI, R/O ACS, Hypertension, Atrial fibrillation, Plan: Admit to Tele, Cardiology consult, Trend troponin, ECHO, Heparin drip, Home medications reconciled, Plan discussed with: Patient My Orders Orders - SANTOS LACEY RUBBER STAMP DIES INSPECTOR Procedure Category Date Status Time Admit ADMIT 08/24/25 Transmitted 13:21 Code Status CODE 08/24/25 Transmitted 13:21 2 Gm Sodium Diet DIET 08/24/25 Transmitted Lunch Hydrocodone-Acet PHA 08/24/25 In Process 5/325mg Tab ([place] 13:30 Ondansetron Hcl PHA 08/24/25 In Process (Zofran) 13:30 Docusate Sodium PHA 08/24/25 In Process Capsule (Colace 13:30 Complete Blood Count LAB 08/25/25 Verified 04:00 Comprehensive LAB 08/25/25 Verified Metabolic Panel 04:00 Condition: Serious YAHAIRA 08/24/25 In Process 13:21 Acetaminophen Tablet PHA 08/24/25 In Process (Tylenol Tablet) 13:30 Nitroglycerin PHA 08/24/25 In Process Sublingual (Ntrostat 13:30 Morphine Sulfate PHA 08/24/25 Logged Injection 13:30 Stat Ekg For Chest YAHAIRA 08/24/25 In Process Pain 13:21 Notify Md Of Changes [facility] 08/24/25 In Process From Base 13:21 Shake Cutter For [facility] 08/24/25 In Process 24 Hours 13:21 Emergency Dysrhythmia [facility] 08/24/25 In Process Protocol 13:21 Rhythm Strips Once [facility] 08/24/25 In Process Every Shift 13:21 Oxygen By Nasal RT 08/24/25 Transmitted Cannula 13:21 * Cardiology Consult CONS 08/24/25 Transmitted 13:21 Rivaroxaban Tablet PHA 08/25/25 Transmitted (Xarelto Tablet) 10:00 (Nf) Amlodipine PHA 08/25/25 Transmitted Besylate 10:00 (Nf) Metoprolol PHA 08/25/25 Transmitted Tartrate 10:00 Date of Service: Aug 24, 2025 Billing Provider: SANTOS LACEY Common Visit Codes: [id number] INP/OBS CARE (MOD) SANTOS LACEY Aug 24, 2025 14:11
--- NOTE | 2025-08-24 15:29 | DVHINCON2 ---
JHAJJDINAHTRU RESIDENT 08/24/25 1529: Date Seen: Aug 24, [address] Roland Reason for Consultation elevated troponin and SOB History of Present Illness Patient is a 60-year-old male who came to the hospital with a chief complaint of palpitations and lightheadedness which she experienced a day this morning. Patient was apparently well and was following his normal routine when suddenly before heading out of his home he felt lightheaded, palpitations, cramping of his hands which lasted for 5-10 minutes. Patient has a history of complete heart block status post dual-chamber pacemaker placement in October 2024. 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 Since the procedure patient has not complained any symptoms of shortness of the breath, chest pain, palpitations, lightheadedness, syncope, orthopnea, PND. Patient denied any nausea, vomiting, diarrhea, cough, fever or chills. 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 Patient today was going to [facility] for consultation for a Watchman device. Initial EKG in the hospital showed ventricular paced rhythm, negative for Sgarbossa criteria, possible LBBB. Troponins trended 448->398->418 Past Medical History Complete heart block,? Atrial fibrillation/flutter, hypertension Past Surgical History Dual-chamber pacemaker placement, coronary angiogram Family History: Cerebrovascular accident (CVA) G8 MOTHER, Onset:Unknown Prostate carcinoma G8 FATHER, Onset:Unknown Family History No significant family history Social History Denies smoking, alcohol, drug use Allergies: Coded Allergies: NO KNOWN ALLERGIES (Unverified , 04/02/10) Home Meds Active Scripts Cyclobenzaprine Hcl (Cyclobenzaprine Hcl) 10 Mg Tab, 10 MG PO QHSP PRN for 10 Days, #10 TAB 0 Refills Prov:AKIKO PIERRE NP 02/02/25 Hydrocodone-Acetaminophen (Hydrocodone Bitartrate/AC 5-325 mg) 1 Tab Tab, 1 TAB PO Q8HP PRN for 4 Days, #12 TAB 0 Refills Prov:AKIKO PIERRE NP 02/02/25 Reported Medications Metoprolol Tartrate (Metoprolol Tartrate) 100 Mg Tab, 1 TAB PO DAILY 08/24/25 Amlodipine Besylate (Amlodipine Besylate) 10 Mg Tab, 1 TAB PO DAILY 08/24/25 Rivaroxaban (Xarelto Tablet) 20 Mg Tb, 1 TAB PO DAILY 08/24/25 [Prilosec] No Conflict Check 04/02/10 Discontinued Reported Medications Amlodipine Besylate (Amlodipine Besylate) 5 Mg Tab, 5 MG PO DAILY for 30 Days, MG 10/24/24 Discontinued Scripts Doxycycline (Monohydrate) (DOXYCYCLINE) 150 Mg Cap, 100 MG PO BID for 14 Days, #28 CAP 0 Refills Prov:SANGITA CANNON RESIDENT 10/27/24 Current Medications Current Medications Medications (Trade) Dose Ordered Sig/Reagan Route PRN Reason Start Time Stop Time Status Last Admin Aspirin 81 mg DAILY PO 08/25/25 10:00 Heparin Sodium/ Dextrose 250 ml @ 10 mls/hr Q24H IV 08/24/25 12:00 08/24/25 12:56 Acetaminophen/ Hydrocodone Bitart ([place] 5/325MG Tab) 1 tab Q4HP PRN PO MODERATE PAIN (4-6 PAIN SCALE) 08/24/25 13:30 Ondansetron HCl (Zofran) 4 mg Q4HP PRN IV NAUSEA / VOMITING 08/24/25 13:30 Docusate Sodium (Colace Capsule) 100 mg BIDPRN PRN PO FOR CONSTIPATION 08/24/25 13:30 Acetaminophen (Tylenol Tablet) 650 mg Q6HP PRN PO PAIN SCALE 1-3 OR TEMP>100.4 08/24/25 13:30 Nitroglycerin (Ntrostat Sublingual) 0.4 mg Q5MINP PRN SL FOR CHEST PAIN 08/24/25 13:30 Morphine Sulfate 2 mg Q30M PRN IV FOR CHEST PAIN 08/24/25 13:45 Rivaroxaban (Xarelto Tablet) 20 mg DAILY PO 08/25/25 10:00 08/24/25 13:37 DC Amlodipine Besylate (Norvasc Tablet) 10 mg DAILY PO 08/25/25 10:00 Metoprolol Tartrate (Lopressor Tablet) 100 mg DAILY PO 08/25/25 10:00 Review of Systems Patient seen and examined with the bedside Reports no acute complaints of shortness of breath, palpitations, chest pain, dizziness Vital Signs Vital Signs Date Time Temp Pulse Resp B/P (MAP) Pulse Ox O2 Delivery O2 Flow Rate FiO2 08/24/25 14:16 62 20 134/94 (107) 96 08/24/25 12:46 Room Air* 0 21 08/24/25 12:46 97.6 97.6 Physical Exam Skin - Patients skin is warm and dry. HEENT - normocephalic, atraumatic, moist mucous membranes, no scleral icterus, no conjunctival pallor. Neck - full ROM, no LAD, no JVD Pulmonary - B/L clear breath sounds without any wheezing, rales or stridor cardiovascular - regular S1,S2 heard, 3rd heart sound likely S4. peripheral pulses normal radial 2+, pedal 2+. GI - soft, nontender abdomen. no hepatospleenomegaly. Bowel sounds normoactive Neurological - Patient is A/O X 4 . Bilateral upper extremity strength 5/5, bilateral lower extremity strength 5/5, no facial droop, normal speech, no tremor, no sensory deficiets. Labs/Diagnostic Data Labs Test 08/24/25 14:15 08/24/25 12:36 08/24/25 11:26 Range/Units Prothrombin Time 13.6 H 9.3-11.8 sec Prothrombin Time INR 1.32 H 0.9-1.15 Activated Partial Thromboplast Time 32.9 24.5-34.5 SEC White Blood Count 3.6 L 4.4-10.8 10^3/uL Red Blood Count 5.13 4.5-5.90 10^6/uL Hemoglobin 15.9 13.5-17.5 g/dL Hematocrit 46.8 41.0-53.0 % Mean Corpuscular Volume 91.3 80.0-100.0 fL Mean Corpuscular Hemoglobin 31.0 28.0-32.0 pg Mean Corpuscular Hemoglobin Concent 34.0 32.0-36.0 g/dL Red Cell Distribution Width 13.2 11.8-14.3 % Platelet Count 249 140-450 10^3/uL Mean Platelet Volume 8.0 6.9-10.8 fL Neutrophils (%) (Auto) 44.2 37.0-80.0 % Lymphocytes (%) (Auto) 42.9 10.0-50.0 % Monocytes (%) (Auto) 7.8 0.0-12.0 % Eosinophils (%) (Auto) 2.8 0.0-7.0 % Basophils (%) (Auto) 2.3 H 0.0-2.0 % Neutrophils # (Auto) 1.6 1.6-8.6 10 ^3/uL Lymphocytes # (Auto) 1.6 0.4-5.4 10 ^3/uL Monocytes # (Auto) 0.3 0-1.3 10 ^3/uL Eosinophils # (Auto) 0.1 0-0.8 10 ^3/uL Basophils # (Auto) 0.1 0-0.2 10 ^3/uL Nucleated Red Blood Cells 0.1 % Sodium Level 141 136-145 mmol/L Potassium Level 3.9 3.5-5.1 mmol/L Chloride Level 106 98-107 mmol/L Carbon Dioxide Level 26 20-31 mmol/L Anion Gap 9 5-15 Blood Urea Nitrogen 8 L 9-23 mg/dL Creatinine 1.33 H 0.700-1.30 mg/dL Glomerular Filtration Rate Calc 60 >90 mL/min BUN/Creatinine Ratio 6.0 L 10.0-20.0 Serum Glucose 130 H 74-106 mg/dL Calcium Level 9.7 8.7-10.4 mg/dL B-Type Natriuretic Peptide 41.98 0-100 pg/mL Assessment NSTEMI likely type 2 ?Atrial flutter on Xarelto h/o complete heart block s/p dual-chamber pacemaker placement KAT on CKD likely prerenal Hypertensive heart disease Plan/Recommendation - echocardiogram pending - metoprolol succinate 50 daily for rate control - continue anticoagulation with Lovenox inpatient and resume Xarelto outpatient - high-dose statin - continue on home antihypertensive amlodipine - bedside pacemaker interrogation revealed patient to be in AFib/a flutter most of the time and ventricular pacing more than 90% - monitor on telemetry Goals of care discussed with the patient for over 17 minutes. Plan discussed with Dr. Davenport Plan discussed with: Patient, Other (RN) NYHA Physical activity limitations: NA Date of Service: Aug 24, 2025 Billing Provider: MYA DAVENPORT MD Cardiology Common Codes: [id number] INP/OBS CARE (High) MYA DAVENPORT MD 08/24/25 1705: Family History: Cerebrovascular accident (CVA) G8 MOTHER, Onset:Unknown Prostate carcinoma G8 FATHER, Onset:Unknown Allergies: Coded Allergies: NO KNOWN ALLERGIES (Unverified , 04/02/10) Home Meds Active Scripts Cyclobenzaprine Hcl (Cyclobenzaprine Hcl) 10 Mg Tab, 10 MG PO QHSP PRN for 10 Days, #10 TAB 0 Refills Prov:AKIKO PIERRE SPORTS RECRUITER 02/02/25 Hydrocodone-Acetaminophen (Hydrocodone Bitartrate/AC 5-325 mg) 1 Tab Tab, 1 TAB PO Q8HP PRN for 4 Days, #12 TAB 0 Refills Prov:AKIKO PIERRE SPORTS RECRUITER 02/02/25 Reported Medications Metoprolol Tartrate (Metoprolol Tartrate) 100 Mg Tab, 1 TAB PO DAILY 08/24/25 Amlodipine Besylate (Amlodipine Besylate) 10 Mg Tab, 1 TAB PO DAILY 08/24/25 Rivaroxaban (Xarelto Tablet) 20 Mg Tb, 1 TAB PO DAILY 08/24/25 [Prilosec] No Conflict Check 04/02/10 Discontinued Reported Medications Amlodipine Besylate (Amlodipine Besylate) 5 Mg Tab, 5 MG PO DAILY for 30 Days, MG 10/24/24 Discontinued Scripts Doxycycline (Monohydrate) (DOXYCYCLINE) 150 Mg Cap, 100 MG PO BID for 14 Days, #28 CAP 0 Refills Prov:SANGITA CANNON RESIDENT 10/27/24 Plan/Recommendation pt seen with cv team agree with plan reviewed my previous LHC, 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
[2025-08-24 16:18] LABS: Triglycerides 64.0 mg/dL (< 150)
[2025-08-24 16:19] LABS: Magnesium 2.4 mg/dL (1.6-2.6)
[2025-08-24 16:20] LABS: HDL Cholesterol 53.0 mg/dL (40-59)
[2025-08-24 16:21] LABS: Cholesterol 207.0 mg/dL (< 200)
[2025-08-24 19:00] VITALS: O2SAT 95
[2025-08-24 19:34] LABS: Protein, Urine < 6.0 mg/dL (1-14)
[2025-08-24 20:00] VITALS: RESP 16; O2SAT 95
[2025-08-24 21:00] VITALS: BP 133/88; PULSE 62; RESP 17; TEMP 97.6; O2SAT 99
--- NOTE | 2025-08-24 21:03 | ECG ---
[facility] Test Date: 2025-08-24 Test Time: 11:20:08 Pat Name: ZAID KNIGHT Department: ER Room: 0277 Gender: M New Grad Rn: BARB : 1965 Requested By: DEL VITALE Order Number: [id number] Reading MD: Gee Wright Measurements Intervals [place] Rate: 65 P: 0 LA: 0 QRS: -80 QRSD: 155 T: 82 QT: 452 QTc: 470 Interpretive Statements Afib/flutter and ventricular-paced rhythm No further analysis attempted due to paced rhythm Electronically Signed On 08-26-2025 17:19:21 PST by Gee Wright Please click the below link to view image of tracing.
[2025-08-24] MEDS: ATORVASTATIN 20 MG TAB PO SCH (21:42)
[2025-08-24] MEDS: ENOXAPARIN SOD 120 MG/0.8 ML SYRINGE SC SCH (21:43)
[2025-08-24] MEDS ORDERED: METOPROLOL SUCCINATE XL 50 MG TAB PO SCH (22:00)
[2025-08-25] VITALS (9 sets, daily range): BP systolic 108–149; BP diastolic 68–98; PULSE 60–64; RESP 16–19; TEMP 97.1–98.4; O2SAT 98–100
[2025-08-25 06:50] LABS: Hematocrit 45.6 % (41.0-53.0); Hemoglobin 15.5 g/dL (13.5-17.5); Mean Corpuscular Hemoglobin 31.0 pg (28.0-32.0); Mean Corpuscular Volume 91.1 fL (80.0-100.0); Nucleated Red Blood Cells % 0.4 %
[2025-08-25 07:06] LABS: Albumin 3.8 g/dL (3.2-4.8); Alkaline Phosphatase 63 U/L (46-116); Anion Gap 10 (5-15); BUN/Creatinine Ratio 5.7 (10.0-20.0); Calcium 8.9 mg/dL (8.7-10.4); Carbon Dioxide 24 mmol/L (20-31); Chloride 106 mmol/L (98-107); Glucose 85 mg/dL (74-106); Potassium 3.7 mmol/L (3.5-5.1); Sodium 140 mmol/L (136-145); Total Protein 6.4 g/dL (5.7-8.2)
[2025-08-25 07:15] LABS: Alanine Aminotransferase 42 U/L (7-40); Bilirubin, Total 1.9 mg/dL (0.2-1.0); Blood Urea Nitrogen 6 mg/dL (9-23)
[2025-08-25] MEDS: METOPROLOL SUCCINATE XL 50 MG TAB PO SCH (09:22)
[2025-08-25] MEDS ORDERED: METOPROLOL TARTRATE 50 MG TAB PO SCH (10:00)
[2025-08-25] MEDS ORDERED: RIVAROXABAN 20 MG TAB PO SCH (10:00)
[2025-08-25] MEDS: POTASSIUM CHL 20 Meq TABLET PO ONE (10:31)
[2025-08-25 11:08] LABS: Free T4 (Free Thyroxine) 1.18 ng/dL (0.89-1.76)
--- NOTE | 2025-08-25 11:29 | DVHPNRES ---
Progress Note Date Seen: Aug 25, 2025 Resident Creating Document: ROSSANA LONDON RESIDENT Has the PT tested + for MRSA If YES, has PT been informed?: No Medical Necessity Reason Pt with a Central, PICC or Fol: No Subjective Review of Systems Eran Woody is a 60-year-old male, with past medical history of hypertension, atrial fibrillation(On Xarelto), and bradycardia (with Pacemaker). The patient came to the [facility] ED with chief complain of 1 episode of shortness of breath, palpitations, becoming dizzy that did not improved with rest, this prompted his visit to the ED. The patient denies chest pain, vomit, abdominal pain, numbness, tingling sensation or neurologic deficits. On further questioning, the patient reported was admitted in [facility] in October of 2024 due to bradycardia where he had an left heart cath completed and a pacemaker placed. He has since been following with cardiology(Dr. Mcmahon). He was referred to [facility] for the watchman procedure. He had a scheduled appointment with [facility] that he missed due to coming to the hospital. In the ED EKG reported: Afib/flutter and ventricular-paced rhythm and LBB. The troponins were elevated 398 and 418. The patient was admitted for further assessment and evaluation. Past medical history: AFIB, HTN, Other (bradycardia, pacemaker October 2024) Past Surgical History: Other (pacemaker October 2024) Social history: Smoke: No. Alcohol: occasional Drugs: None Lives: with [facility] course: On 08/25/25, the patient was evaluated and assessed at bedside. VS, labs and chart was reviewed. Due to elevated troponin cardiology was consulted, they recommended metoprolol for rate control and an ECHO. The ECHO was performed today, the report is pending at this time. bedside pacemaker interrogation revealed patient to be in AFib/a flutter most of the time and ventricular pacing more than 90%. We will continue following the progress of this patient. ROS: Constitutional: No: Fever, Chills, Sweats, Weakness, Malaise, Other Eyes: No: Pain, Vision change, Conjunctivae inflammation, Eyelid inflammation, Other, Redness ENT: No: Ear pain, Ear discharge, Nose pain, Nose discharge, Nose congestion, Mouth pain, Mouth swelling, Throat pain, Throat swelling, Other Respiratory: No Shortness of breath; No: Cough, Dry, SOB with excertion, Wheezing, Hemoptysis, Pleuritic Pain, Sputum, Wheezing, Other Cardiovascular: No Palpitations; No: Chest Pain, Orthopnea, Paroxysmal Noc. Dyspnea, Edema, Lt Headedness, Other Gastrointestinal: No: Nausea, Vomiting, Abdominal Pain, Diarrhea, Constipation, Melena, Hematochezia, Other Genitourinary: No Dysuria, No Frequency, No Incontinence, No Hematuria, No Retention, No Other Musculoskeletal: No: other, neck pain, shoulder pain, arm pain, back pain, hand pain, leg pain, foot pain Skin: No: Rash, Lesions, Jaundice, Bruising, Other Neurological: dizziness improved. No: Weakness, Numbness, Incoordination, Change in speech, Confusion, Seizures Allergies: No know allergies. Objective vital signs Vital Sign Date Time Temp Pulse Resp B/P (MAP) Pulse Ox O2 Delivery O2 Flow Rate FiO2 08/25/25 09:23 131/88 08/25/25 09:22 64 08/25/25 08:52 98.0 19 98 98.0 08/25/25 07:54 Room Air* 0 21 Total Intake and Output 08/24/25 08/24/25 08/25/25 15:00 23:00 07:00 Intake Total 20 ml 10 ml 350 ml Balance 20 ml 10 ml 350 ml medications Current Medications Medications Dose Ordered Sig/Reagan Route Start Time Stop Time Status Last Admin Dose Admin Aspirin 81 mg DAILY PO 08/25/25 10:00 08/25/25 09:22 81 MG Acetaminophen/ Hydrocodone Bitart 1 tab Q4HP PRN PO 08/24/25 13:30 Ondansetron HCl 4 mg Q4HP PRN IV 08/24/25 13:30 Docusate Sodium 100 mg BIDPRN PRN PO 08/24/25 13:30 Acetaminophen 650 mg Q6HP PRN PO 08/24/25 13:30 Nitroglycerin 0.4 mg Q5MINP PRN SL 08/24/25 13:30 Morphine Sulfate 2 mg Q30M PRN IV 08/24/25 13:45 Amlodipine Besylate 10 mg DAILY PO 08/25/25 10:00 08/25/25 09:23 10 MG Enoxaparin Sodium 110 mg Q12HR SC 08/24/25 22:00 08/25/25 10:31 110 MG Atorvastatin Calcium 40 mg HS PO 08/24/25 22:00 08/24/25 21:42 40 MG Metoprolol Succinate 50 mg DAILY PO 08/25/25 10:00 08/25/25 09:22 50 MG Examination General Appearance: Alert, Oriented X3, Cooperative, No acute distress HEENT: Atraumatic, PERRLA, EOMI, Mucous membr. moist/pink Respiratory: Normal air movement Cardiovascular: Regular rate, Normal S1, Normal S2, No murmurs, no chest pain on palpation of the chest. Abdominal: Normal bowel sounds, Soft, No tenderness, No hepatospenomegaly, No masses Extremities: No clubbing, No cyanosis, No edema, Normal pulses, No tenderness/swelling Skin: No breakdown, No significant lesion Neuro: Normal gait, Normal speech, Strength at 5/5 X4 ext, Normal tone, Sensation intact, Cranial nerves 3-12 NL, Reflexes 2+ Psych/Mental Status: Mental status NL, Mood NL laboratory and microbiology Laboratory Tests 08/25/25 05:34 Test 08/25/25 05:34 Range/Units Serum Glucose 85 74-106 mg/dL Problem List/Assessment/Plan Problem List/Assessment/Plan # ACS, NSTEMI possible type II #Acute Atrial fibrillation with rate controlled #Possible acute atrial flutter with LBB #Hx of complete heart block s/p dual-chamber pacemaker placement Telemetry Cardiology consult: Ongoing Trend troponin: 398, 418, ECHO: pending report High-dose statin Lovenox inpatient and resume Xarelto outpatient Bedside pacemaker interrogation #KAT on CKD likely prerenal due to VMN Monitor Crea and BUN Avoid neprhotoxins #Hypertensive heart disease with possible systolic heart failure Amlodipine 10mg po dialy #Obesity BMI: 35.3 Counseling about healthy life style Diet: Cardiac diet PPI prophylaxis: pantoprazole DVT prophylaxis: patient on enoxaparin Goals of care addressed with the patient for more than 30 minutes Code status:Full code PCP: Dr. Wahl Case discussed with , patient and nurse Plan discussed with: Patient, Spouse My Orders My Orders Orders - ROSSANA LONDON RESIDENT Procedure Category Date Status Time Basic Metabolic Panel LAB 08/26/25 Verified 04:00 Visit Coding STANDARD RES Billing Provider: ALEXANDRE BEAN MD Date of Service if different f: Aug 25, 2025 Common Visit Codes: 31623-HEXBEXUNNS INP/OBS CARE(HIGH) ROSSANA LONDON RESIDENT Aug 25, 2025 11:28
--- NOTE | 2025-08-25 14:58 | DVHPN2 ---
Progress Note Date Seen: Aug 25, 2025 Resident Creating Document: NELI STRANGERYLEE RESIDENT Has the PT tested + for MRSA If YES, has PT been informed?: No Medical Necessity Reason Pt with a Central, PICC or Fol: No Subjective Review of Systems Patient is seen and examined with the bedside No complaints of lightheadedness, shortness of breath, chest pain since yesterday Tele monitor reviewed showed no episodes of tachyarrhythmias, ventricular paced rhythms Objective vital signs Vital Sign Date Time Temp Pulse Resp B/P (MAP) Pulse Ox O2 Delivery O2 Flow Rate FiO2 08/25/25 13:00 97.5 60 19 149/98 (115) 99 97.5 08/25/25 07:54 Room Air* 0 21 Total Intake and Output 08/24/25 08/24/25 08/25/25 15:00 23:00 07:00 Intake Total 20 ml 10 ml 350 ml Balance 20 ml 10 ml 350 ml medications Current Medications Medications Dose Ordered Sig/Reagan Route Start Time Stop Time Status Last Admin Dose Admin Aspirin 81 mg DAILY PO 08/25/25 10:00 08/25/25 09:22 81 MG Acetaminophen/ Hydrocodone Bitart 1 tab Q4HP PRN PO 08/24/25 13:30 Ondansetron HCl 4 mg Q4HP PRN IV 08/24/25 13:30 Docusate Sodium 100 mg BIDPRN PRN PO 08/24/25 13:30 Acetaminophen 650 mg Q6HP PRN PO 08/24/25 13:30 Nitroglycerin 0.4 mg Q5MINP PRN SL 08/24/25 13:30 Morphine Sulfate 2 mg Q30M PRN IV 08/24/25 13:45 Amlodipine Besylate 10 mg DAILY PO 08/25/25 10:00 08/25/25 09:23 10 MG Enoxaparin Sodium 110 mg Q12HR SC 08/24/25 22:00 08/25/25 10:31 110 MG Atorvastatin Calcium 40 mg HS PO 08/24/25 22:00 08/24/25 21:42 40 MG Metoprolol Succinate 50 mg DAILY PO 08/25/25 10:00 08/25/25 09:22 50 MG Examination Skin - Patients skin is warm and dry. HEENT - normocephalic, atraumatic, moist mucous membranes, no scleral icterus, no conjunctival pallor. Neck - full ROM, no LAD, no JVD Pulmonary - B/L clear breath sounds without any wheezing, rales or stridor cardiovascular - regular S1,S2 heard, 3rd heart sound likely S4. peripheral pulses normal radial 2+, pedal 2+. GI - soft, nontender abdomen. no hepatospleenomegaly. Bowel sounds normoactive Neurological - Patient is A/O X 4 . Bilateral upper extremity strength 5/5, bilateral lower extremity strength 5/5, no facial droop, normal speech, no tremor, no sensory deficiets. laboratory and microbiology Laboratory Tests 08/25/25 05:34 Test 08/25/25 05:34 Range/Units Serum Glucose 85 74-106 mg/dL Problem List/Assessment/Plan Problem List/Assessment/Plan NSTEMI likely type 2 ?Atrial flutter on Xarelto h/o complete heart block s/p dual-chamber pacemaker placement KAT on CKD likely prerenal Hypertensive heart disease Plan/Recommendation - echocardiogram pending - metoprolol succinate 50 daily for rate control - continue anticoagulation with Lovenox inpatient and resume Xarelto outpatient - high-dose statin - continue on home antihypertensive amlodipine - bedside pacemaker interrogation revealed patient to be in AFib/a flutter most of the time and ventricular pacing more than 90% patient cleared from Cardiology, continue beta daphne for rate control and continue on Xarelto for anticoagulation. Advised patient to follow up at the appointment he missed for consultation for Watchman device at [facility]. Goals of care discussed with the patient for over 17 minutes. Plan discussed with Dr. Reyes Plan discussed with: Patient My Orders My Orders Orders - CECILIO STRANGE Procedure Category Date Status Time Atorvastatin (Lipitor) PHA 08/24/25 In Process 22:00 Metoprolol Xl PHA 08/25/25 In Process Succinate (Toprol Xl) 10:00 Enoxaparin Sodium PHA 08/24/25 In Process (Lovenox) 22:00 CECILIO STRANGE Aug 25, 2025 14:58
[2025-08-25] MEDS: MELATONIN 5 MG TAB PO ONE (22:03)
[2025-08-26 01:00] VITALS: BP 135/76; PULSE 60; RESP 18; TEMP 97.9; O2SAT 96
[2025-08-26 05:00] VITALS: BP 130/94; PULSE 63; RESP 18; TEMP 97.8; O2SAT 97
[2025-08-26 07:17] LABS: Anion Gap 10 (5-15); Carbon Dioxide 24 mmol/L (20-31); Chloride 107 mmol/L (98-107); Potassium 4.1 mmol/L (3.5-5.1); Sodium 141 mmol/L (136-145)
[2025-08-26 07:18] LABS: Calcium 9.3 mg/dL (8.7-10.4)
[2025-08-26 07:23] LABS: BUN/Creatinine Ratio 5.7 (10.0-20.0); Glucose 87 mg/dL (74-106)
[2025-08-26 07:27] LABS: Blood Urea Nitrogen 6 mg/dL (9-23)
[2025-08-26 08:00] VITALS: PULSE 64
[2025-08-26 08:30] VITALS: RESP 17
[2025-08-26 09:00] VITALS: BP 151/99; PULSE 61; RESP 20; TEMP 97.8; O2SAT 92
[2025-08-26 13:00] VITALS: BP 137/94; PULSE 61; RESP 20; TEMP 98; O2SAT 97
--- NOTE | 2025-08-26 19:53 | DVHDSRES ---
Discharge Summary Date of Admission Resident Creating Document: ROSSANA LONDON RESIDENT Aug 24, 2025 at 13:21 Date of Discharge: Aug 26, 2025 Admitting Diagnosis # ACS, NSTEMI possible type II #Acute Atrial fibrillation with rate controlled #Possible acute atrial flutter with LBB #KAT on CKD likely prerenal due to VMN #Chronic Hypertensive heart disease with possible systolic heart failure #Obesity BMI 35.4 Wounds: No wound present on admission. Labs/Diagnostic Data: Laboratory Results Test 08/26/25 05:50 08/25/25 05:34 08/24/25 18:50 08/24/25 14:15 Sodium Level 141 mmol/L (136-145) Potassium Level 4.1 mmol/L (3.5-5.1) Chloride Level 107 mmol/L (98-107) Carbon Dioxide Level 24 mmol/L (20-31) Anion Gap 10 (5-15) Blood Urea Nitrogen 6 mg/dL (9-23) Creatinine 1.06 mg/dL (0.700-1.30) Glomerular Filtration Rate Calc 79 mL/min (>90) BUN/Creatinine Ratio 5.7 (10.0-20.0) Serum Glucose 87 mg/dL (74-106) Calcium Level 9.3 mg/dL (8.7-10.4) White Blood Count 3.8 10^3/uL (4.4-10.8) Red Blood Count 5.01 10^6/uL (4.5-5.90) Hemoglobin 15.5 g/dL (13.5-17.5) Hematocrit 45.6 % (41.0-53.0) Mean Corpuscular Volume 91.1 fL (80.0-100.0) Mean Corpuscular Hemoglobin 31.0 pg (28.0-32.0) Mean Corpuscular Hemoglobin Concent 34.1 g/dL (32.0-36.0) Red Cell Distribution Width 13.0 % (11.8-14.3) Platelet Count 230 10^3/uL (140-450) Mean Platelet Volume 8.3 fL (6.9-10.8) Neutrophils (%) (Auto) 41.5 % (37.0-80.0) Lymphocytes (%) (Auto) 43.5 % (10.0-50.0) Monocytes (%) (Auto) 9.8 % (0.0-12.0) Eosinophils (%) (Auto) 2.8 % (0.0-7.0) Basophils (%) (Auto) 2.4 % (0.0-2.0) Neutrophils # (Auto) 1.6 10 ^3/uL (1.6-8.6) Lymphocytes # (Auto) 1.7 10 ^3/uL (0.4-5.4) Monocytes # (Auto) 0.4 10 ^3/uL (0-1.3) Eosinophils # (Auto) 0.1 10 ^3/uL (0-0.8) Basophils # (Auto) 0.1 10 ^3/uL (0-0.2) Nucleated Red Blood Cells 0.4 % Total Bilirubin 1.9 mg/dL (0.2-1.0) Aspartate Amino Transferase (AST) 37 U/L (13-40) Alanine Aminotransferase (ALT) 42 U/L (7-40) Alkaline Phosphatase 63 U/L (46-116) Total Protein 6.4 g/dL (5.7-8.2) Albumin 3.8 g/dL (3.2-4.8) Free Thyroxine (T4) Calculated 1.18 ng/dL (0.89-1.76) Total Triiodothyronine (TT3) 1.01 ng/mL (0.60-1.81) Urine Creatinine 81.76 mg/dL (30.0-125.0) Urine Protein/Creatinine Ratio 0.07 Urine Sodium 40 mmol/L (40-220) Urine Total Protein < 6.0 mg/dL (1-14) Magnesium Level 2.4 mg/dL (1.6-2.6) Troponin I High Sensitivity 418 ng/L (</=54) Triglycerides Level 64 mg/dL (< 150) Cholesterol Level 207 mg/dL (< 200) LDL Cholesterol 146 mg/dL (< 100) HDL Cholesterol 53 mg/dL (40-59) Thyroid Stimulating Hormone (TSH) 0.28 uIU/mL (0.55-4.78) Test 08/24/25 12:36 08/24/25 11:26 Prothrombin Time 13.6 sec (9.3-11.8) Prothrombin Time INR 1.32 (0.9-1.15) Activated Partial Thromboplast Time 32.9 SEC (24.5-34.5) B-Type Natriuretic Peptide 41.98 pg/mL (0-100) Other Laboratory Tests 08/26/25 05:50 08/25/25 05:34 Brief Hx & Hospital Course: Eran Woody is a 60-year-old male, with past medical history of hypertension, atrial fibrillation(On Xarelto), and bradycardia (with Pacemaker). The patient came to the [facility] ED with chief complain of 1 episode of shortness of breath, palpitations, becoming dizzy that did not improved with rest, this prompted his visit to the ED. The patient denies chest pain, vomit, abdominal pain, numbness, tingling sensation or neurologic deficits. On further questioning, the patient reported was admitted in [facility] in October of 2024 due to bradycardia where he had an left heart cath completed and a pacemaker placed. He has since been following with cardiology(Dr. Mcmahon). He was referred to [facility] for the watchman procedure. He had a scheduled appointment with [facility] that he missed due to coming to the hospital. In the ED EKG reported: Afib/flutter and ventricular-paced rhythm and LBB. The troponins were elevated 398 and 418. The patient was admitted for further assessment and evaluation. Past medical history: AFIB, HTN, Other (bradycardia, pacemaker October 2024) Past Surgical History: Other (pacemaker October 2024) Social history: Smoke: No. Alcohol: occasional Drugs: None Lives: with [facility] course: During his admission at [facility] the patient was evaluated and assessed as follow: On 08/25/25, the patient was evaluated and assessed at bedside. VS, labs and chart was reviewed. Due to elevated troponin cardiology was consulted, they recommended metoprolol for rate control and an ECHO. The ECHO was performed today, the report is pending at this time. bedside pacemaker interrogation revealed patient to be in AFib/a flutter most of the time and ventricular pacing more than 90%. We will continue following the progress of this patient. On 08/26/25, the patient was evaluated and assessed at bedside. VS, labs and chart was reviewed. The patient reports feeling better. Telemetry was reviewed, normal sinus rhythm, no reportable events. Cardiology has cleared the patient, the patient will f/u with cardiology (Dr. Mcmahon) as an out patient, The patient will f/u in d/c clinic for ECHO results. The patient will follow up with PCP in one week. ROS: Constitutional: No: Fever, Chills, Sweats, Weakness, Malaise, Other Eyes: No: Pain, Vision change, Conjunctivae inflammation, Eyelid inflammation, Other, Redness ENT: No: Ear pain, Ear discharge, Nose pain, Nose discharge, Nose congestion, Mouth pain, Mouth swelling, Throat pain, Throat swelling, Other Respiratory: No Shortness of breath; No: Cough, Dry, SOB with excertion, Wheezing, Hemoptysis, Pleuritic Pain, Sputum, Wheezing, Other Cardiovascular: No Palpitations; No: Chest Pain, Orthopnea, Paroxysmal Noc. Dyspnea, Edema, Lt Headedness, Other Gastrointestinal: No: Nausea, Vomiting, Abdominal Pain, Diarrhea, Constipation, Melena, Hematochezia, Other Genitourinary: No Dysuria, No Frequency, No Incontinence, No Hematuria, No Retention, No Other Musculoskeletal: No: other, neck pain, shoulder pain, arm pain, back pain, hand pain, leg pain, foot pain Skin: No: Rash, Lesions, Jaundice, Bruising, Other Neurological: dizziness improved. No: Weakness, Numbness, Incoordination, Change in speech, Confusion, Seizures Allergies: No know allergies. Physical exam: General Appearance: Alert, Oriented X3, Cooperative, No acute distress HEENT: Atraumatic, PERRLA, EOMI, Mucous membr. moist/pink Respiratory: Normal air movement Cardiovascular: Regular rate, Normal S1, Normal S2, No murmurs, no chest pain on palpation of the chest. Abdominal: Normal bowel sounds, Soft, No tenderness, No hepatospenomegaly, No masses Extremities: No clubbing, No cyanosis, No edema, Normal pulses, No tenderness/swelling Skin: No breakdown, No significant lesion Neuro: Normal gait, Normal speech, Strength at 5/5 X4 ext, Normal tone, Sensation intact, Cranial nerves 3-12 NL, Reflexes 2+ Psych/Mental Status: Mental status NL, Mood NL Consults/Reason for consult Cardiology: Troponins elevation, NSTEMI type 2 Operations or Procedures PROCEDURE(s): EKG - ELECTROCARDIGRAM ORDER NUMBER(s): [id number], ACCESSION NUMBER(s): [id number] [facility] Test Date: 2025-08-24 Test Time: 11:20:08 Pat Name: ERAN KNIGHT Department: ER Room: 0277 Gender: 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 DICTATED BY:CRISTO SANABRIA Sr., MD DICTATED DATE/TIME:08/24/25 1120 Condition at Discharge: Stable Final Diagnosis/Problems List # ACS, NSTEMI possible type II #Acute Atrial fibrillation with rate controlled #Possible acute atrial flutter with LBB #KAT on CKD likely prerenal due to VMN #Hypertensive heart disease with possible systolic heart failure #Obesity BMI 35.4 Discharge Disposition: Home SNF Discharge Will this Physician continue t: No Discharge Instruct/Medications Diet: Cardiac 2g Na,low cholest Diet comment: Continue with home medications Activity: No Restrictions, As Tolerated Follow Up/Referral: F/U with cardiology Dr. Mcmahon in 1 week F/U with PCP in 1 week F/U in D/C clinic with ECHO results. Medications: Continue home medications Scheduled Amlodipine Besylate (Amlodipine Besylate), 1 TAB PO DAILY, (Reported) Metoprolol Tartrate (Metoprolol Tartrate), 1 TAB PO DAILY, (Reported) Rivaroxaban (Xarelto Tablet), 1 TAB PO DAILY, (Reported) Scheduled PRN Cyclobenzaprine Hcl (Cyclobenzaprine Hcl), 10 MG PO QHSP PRN Hydrocodone-Acetaminophen (Hydrocodone Bitartrate/AC 5-325 mg), 1 TAB PO Q8HP PRN Miscellaneous Medications [Prilosec], (Reported) Discontinued Medications Amlodipine Besylate (Amlodipine Besylate), 5 MG PO DAILY, (Reported) Doxycycline (Monohydrate) (Doxycycline), 100 MG PO BID Discharge Statement: "Patient was advised to return to the ER or call 911 if any headaches, dizziness, shortness of breath, chest pain, abdominal pain, bleeding, fevers, or worsening of medical condition. Patient was counseled about treatment plan, medications, possible side effects, patientverbalized understanding. All questions were answered to the best of my ability. This discharge took greater then 30 minutes in planning, reviewing documentation, counseling the patient, and discussing with other team members." ASSESSMENT ASSESSMENT Assessment # ACS, NSTEMI possible type II #Acute Atrial fibrillation with rate controlled #Possible acute atrial flutter with LBB #KAT on CKD likely prerenal due to VMN #Chronic Hypertensive heart disease with possible systolic heart failure #Obesity BMI 35.4 Diet: Cardiac diet Discharge plan discussed with the patient for more than 30 minutes, the patient agrees with the d/c plan. PCP: Dr. Wahl Case discussed with , patient and nurse Visit Coding STANDARD RES Billing Provider: ALEXANDRE BEAN MD Date of Service if different f: Aug 26, 2025 Common Visit Codes: 75695-ZGQ/OBS DISCH DAY >30min ROSSANA LONDON RESIDENT Aug 26, 2025 19:53
== END 2025-08-26 14:25 | disposition home or self-care (01) | DRG 280 ==
LOC: ER 10:59 → OVERFLOW 13:21 → TELE-WESTW 19:00 → WEST WING 08-26 13:04
PROVIDERS: ADMIT Nurse Practitioner Acute Care; ATTEND Nurse Practitioner Acute Care
DX: I48.91 Unspecified atrial fibrillation (principal); N17.0 Acute kidney failure with tubular necrosis; I21.A1 Myocardial infarction type 2; I50.20 Unspecified systolic (congestive) heart failure; N18.9 Chronic kidney disease, unspecified; I13.10 Hypertensive heart and chronic kidney disease without heart failure, with stage 1 through stage 4 chronic kidney disease, or unspecified chronic kidney disease; E66.9 Obesity, unspecified; I48.92 Unspecified atrial flutter; Z68.35 Body mass index [BMI] 35.0-35.9, adult; Z80.42 Family history of malignant neoplasm of prostate; Z79.01 Long term (current) use of anticoagulants; Z82.3 Family history of stroke; Z83.3 Family history of diabetes mellitus; Z95.0 Presence of cardiac pacemaker
CPT/HCPCS: 36415; 71046; 80048; 80053; 80061; 82570; 83735; 83880; 84156; 84300; 84439; 84443; 84480; 84484; 85025; 85610; 85730; 93005; 93306; 96374; 99291; G0378